=== PATIENT | female | born 1930 | race Caucasian/White ===

== ENCOUNTER 2016-07-22 02:46 | Inpatient (IN) ==
[2016-07-22] MEDS ORDERED: Aspirin 81 MG TAB.CHEW PO ONE (03:02)
[2016-07-22] MEDS ORDERED: Ondansetron 4 MG/2 ML VIAL IVP ONE (03:02)
[2016-07-22] MEDS ORDERED: *HR* Morphine 2 MG/ML SYRINGE IVP ONE (03:02)
--- NOTE | 2016-07-22 03:02 | Emergency Department Note ---
Disposition Clinical Impression: Left breast mass Chest pain Qualifiers: Chest pain type: precordial pain Qualified Code(s): R07.2 - Precordial pain Disposition: Admitted As Inpatient Condition: Good Referrals: NO,PCP [Non-Partnered Physician] - Forms: ED Satisfaction Letter Chest Pain HPI - General Chief Complaint: ED Chest Pain Stated Complaint: squeezing pain in chest Time Seen by Provider: 07/22/16 02:50 Source: patient, EMS Limitations: no limitations Vital Signs Reviewed: Yes Nursing Notes Reviewed: Yes - History of Present Illness HPI Narrative: 86-year-old female presents to the emergency department by EMS with a complaint of severe bilateral lower chest pain which she has been having intermittently for the past 3 weeks. She describes it as a squeezing and tightness around her chest like her chest is in a vice. She states it feels like a brick on her chest. The pain radiates down into the abdomen but also up into the chest into the left shoulder. She does complain of some shortness of breath associated with the pain. No diaphoresis. No nausea or vomiting. No cough or fever. She also complains of soreness in her left breast which has been going on for some time also. She has noticed a knot in the breast but has not told anyone about it. Pt complaint: chest pain Onset (ago): week(s) (3) Duration: intermittent Pain Location: substernal, left chest, right chest, epigastric Severity scale (1-10): 5 Quality: tightness, aching, heaviness, dull Pain Radiation: LUE, abdomen Improves with: nothing Worsens with: nothing Associated symptoms: Reports: dyspnea. Denies: nausea, vomiting, diaphoresis, syncope, palpitations, fever, cough, leg swelling Treatments prior to arrival chest pain: none - Related Data Home Medications Medication Instructions Recorded Confirmed Oxazepam [Serax] 15 mg PO QID PRN 02/19/15 10/09/15 Furosemide [Lasix] 20 mg PO BID PRN 10/09/15 10/09/15 Previous Rx's Medication Instructions Recorded Rivaroxaban [Xarelto] 15 mg PO 1700 #30 tablet 10/13/15 Aspirin 81 mg PO DAILY #90 tab.chew 10/14/15 LevETIRAcetam [Keppra] 250 mg PO Q12HR #90 tablet 10/14/15 Lisinopril [Zestril] 5 mg PO DAILY #30 tablet 10/14/15 Metoprolol XL (24 HR) Succ [Toprol 50 mg PO DAILY #60 tab.er.24h 10/14/15 Xl] Ranolazine [Ranexa] 500 mg PO BID #60 tab.er.12h 10/14/15 Allergies Allergy/AdvReac Type Severity Reaction Status Date / Time nitroglycerin AdvReac Headache Verified 07/22/16 03:01 All systems ED: reviewed and negative except as stated. Constitutional: Denies: fever Cardiovascular: Reports: chest pain. Denies: palpitations Respiratory: Reports: dyspnea. Denies: cough, wheezes Gastrointestinal: Reports: abdominal pain. Denies: nausea, vomiting Musculoskeletal: Denies: back pain Integumentary: Reports: breast mass Neurological: Denies: headache, weakness, numbness Chest Pain PMH - Past Medical History Medical history: Reports: aortic aneurysm, atrial fibrillation, CHF, COPD, coronary artery disease, hyperlipidemia, hypertension, myocardial infarction, TIA Surgical history: Reports: appendectomy, coronary bypass (CABG) Psychiatric history: Reports: anxiety - Social History Smoking Status: Former smoker Alcohol use: Reports: none Drug use: Reports: none Physical Exam - General Limitations: no limitations General appearance: alert, in no apparent distress - Head Head exam: atraumatic, normocephalic - Eye Eye exam: Present: normal appearance, PERRL. Absent: scleral icterus, conjunctival injection - ENT ENT exam: normal exam, normal oropharynx, mucous membranes moist - Neck Neck exam: Present: normal inspection, full ROM, trachea midline. Absent: tenderness, meningismus, lymphadenopathy - Chest Chest inspection: Present: normal inspection, symmetric chest wall rise, tenderness (There is tenderness over the left breast with a palpable 3-4 cm mass in the upper outer quadrant of the left breast.) - Respiratory Respiratory exam: Present: normal lung sounds bilaterally. Absent: respiratory distress, wheezes - Cardiovascular Cardiovascular exam: Present: regular rate, irregular rhythm, normal heart sounds - Abdominal Exam Abdominal exam: Present: soft, Non-Tender, normal bowel sounds - Extremities Exam Extremities exam: Present: normal inspection, full ROM. Absent: tenderness - Back Exam Back exam: Present: normal inspection. Absent: CVA tenderness (R), CVA tenderness (L) - Neurological Exam Neurological exam: Present: alert, oriented X3. Absent: motor sensory deficit - Psychiatric Psychiatric exam: Present: normal affect, normal mood - Skin Skin exam: Present: warm, dry, intact, normal color. Absent: cyanosis, diaphoresis Course - Consultations Consultation #1: Discussed with Dr. Summers and he accepted admission of the patient. Time: 15:00 Vital Signs Temperature 98.4 F 07/22/16 02:50 Pulse Rate 92 07/22/16 02:50 Respiratory Rate 18 07/22/16 02:50 Blood Pressure 194/125 07/22/16 02:50 O2 Sat by Pulse Oximetry 95 07/22/16 02:50 Temperature 98.4 F 07/22/16 02:50 Pulse Rate 92 07/22/16 04:45 Respiratory Rate 18 07/22/16 04:45 Blood Pressure 170/92 07/22/16 04:45 O2 Sat by Pulse Oximetry 93 L 07/22/16 04:45 Oxygen Delivery Oxygen Delivery Room Air Chest Pain - Medical Records Medical records reviewed: Yes I reviewed the patient's medical records. - Lab Data Lab results reviewed: Yes I reviewed the patient's lab results. Result diagrams: 07/22/16 04:19 07/22/16 04:19 Lab Results 07/22/16 07/22/16 07/22/16 Range/Units 04:19 04:19 04:19 WBC (4.3-11.1) K/mcL RBC (3.82-4.97) M/mcL Hgb (11.5-15.4) g/dL Hct (35.3-44.9) % MCV (83.0-100.0) fL MCH (28.0-33.3) pg MCHC (31.6-35.5) g/dL RDW (11.5-14.5) % Plt Count (140-400) K/mcL MPV (9.4-12.4) fL Immature Gran % (0-4) % Seg Neutrophils % % Lymphocytes % % Monocytes % % Eosinophils % % Basophils % % Neutrophils # (1.6-8.9) K/mcL Lymphocytes # (0.6-4.6) K/mcL Monocytes # (0.0-1.3) K/mcL Eosinophils # (0.0-0.6) K/mcL Basophils # (0.0-0.2) K/mcL PT 12.0 (9.4-12.1) Seconds INR 1.1 APTT 26.7 (26.0-36.0) Seconds Sodium (136-145) mEq/L Potassium (3.5-4.5) mEq/L Chloride (98-109) mEq/L Carbon Dioxide (19-29) mEq/L BUN (7-20) mg/dL Creatinine (0.57-1.11) mg/dL Est GFR ( Amer) (> 60) Est GFR (Non-Af Amer) (> 60) BUN/Creatinine Ratio (6-26) Glucose (70-99) mg/dL Calculated Osmolality (280-300) Calcium (8.6-10.8) mg/dL Total Bilirubin 1.1 (0.2-1.2) mg/dL Direct Bilirubin 0.5 (0.0-0.5) mg/dL Indirect Bilirubin 0.6 (0.0-1.2) mg/dL AST 28 (5-34) Units/L ALT 20 (0-55) Units/L Alkaline Phosphatase 114 (38-126) Units/L Troponin I (0-0.03) ng/mL B-Natriuretic Peptide 1330 H (0-100) pg/mL Serum Total Protein 6.8 (6.0-8.3) g/dL Albumin 3.7 (3.5-5.0) g/dL Globulin 3.1 (2.4-3.5) g/dL Albumin/Globulin Ratio 1.2 (1.1-2.2) Lipase (8-78) Units/L 07/22/16 07/22/16 07/22/16 Range/Units 04:19 04:19 04:19 WBC 4.4 (4.3-11.1) K/mcL RBC 4.19 (3.82-4.97) M/mcL Hgb 12.8 (11.5-15.4) g/dL Hct 38.5 (35.3-44.9) % MCV 91.9 (83.0-100.0) fL MCH 30.5 (28.0-33.3) pg MCHC 33.2 (31.6-35.5) g/dL RDW 14.9 H (11.5-14.5) % Plt Count 100 L (140-400) K/mcL MPV 10.6 (9.4-12.4) fL Immature Gran % 0.2 (0-4) % Seg Neutrophils % 77.1 % Lymphocytes % 12.8 % Monocytes % 8.0 % Eosinophils % 1.4 % Basophils % 0.5 % Neutrophils # 3.4 (1.6-8.9) K/mcL Lymphocytes # 0.6 (0.6-4.6) K/mcL Monocytes # 0.4 (0.0-1.3) K/mcL Eosinophils # 0.1 (0.0-0.6) K/mcL Basophils # 0.0 (0.0-0.2) K/mcL PT (9.4-12.1) Seconds INR APTT (26.0-36.0) Seconds Sodium 139 (136-145) mEq/L Potassium 4.0 (3.5-4.5) mEq/L Chloride 106 (98-109) mEq/L Carbon Dioxide 22 (19-29) mEq/L BUN 26 H (7-20) mg/dL Creatinine 1.59 H (0.57-1.11) mg/dL Est GFR ( Amer) 37 L (> 60) Est GFR (Non-Af Amer) 31 L (> 60) BUN/Creatinine Ratio 16 (6-26) Glucose 116 H (70-99) mg/dL Calculated Osmolality 294 (280-300) Calcium 9.0 (8.6-10.8) mg/dL Total Bilirubin (0.2-1.2) mg/dL Direct Bilirubin (0.0-0.5) mg/dL Indirect Bilirubin (0.0-1.2) mg/dL AST (5-34) Units/L ALT (0-55) Units/L Alkaline Phosphatase (38-126) Units/L Troponin I (0-0.03) ng/mL B-Natriuretic Peptide (0-100) pg/mL Serum Total Protein (6.0-8.3) g/dL Albumin (3.5-5.0) g/dL Globulin (2.4-3.5) g/dL Albumin/Globulin Ratio (1.1-2.2) Lipase 35 (8-78) Units/L 01/20/17 Range/Units 04:19 WBC (4.3-11.1) K/mcL RBC (3.82-4.97) M/mcL Hgb (11.5-15.4) g/dL Hct (35.3-44.9) % MCV (83.0-100.0) fL MCH (28.0-33.3) pg MCHC (31.6-35.5) g/dL RDW (11.5-14.5) % Plt Count (140-400) K/mcL MPV (9.4-12.4) fL Immature Gran % (0-4) % Seg Neutrophils % % Lymphocytes % % Monocytes % % Eosinophils % % Basophils % % Neutrophils # (1.6-8.9) K/mcL Lymphocytes # (0.6-4.6) K/mcL Monocytes # (0.0-1.3) K/mcL Eosinophils # (0.0-0.6) K/mcL Basophils # (0.0-0.2) K/mcL PT (9.4-12.1) Seconds INR APTT (26.0-36.0) Seconds Sodium (136-145) mEq/L Potassium (3.5-4.5) mEq/L Chloride (98-109) mEq/L Carbon Dioxide (19-29) mEq/L BUN (7-20) mg/dL Creatinine (0.57-1.11) mg/dL Est GFR ( Amer) (> 60) Est GFR (Non-Af Amer) (> 60) BUN/Creatinine Ratio (6-26) Glucose (70-99) mg/dL Calculated Osmolality (280-300) Calcium (8.6-10.8) mg/dL Total Bilirubin (0.2-1.2) mg/dL Direct Bilirubin (0.0-0.5) mg/dL Indirect Bilirubin (0.0-1.2) mg/dL AST (5-34) Units/L ALT (0-55) Units/L Alkaline Phosphatase (38-126) Units/L Troponin I 0.03 (0-0.03) ng/mL B-Natriuretic Peptide (0-100) pg/mL Serum Total Protein (6.0-8.3) g/dL Albumin (3.5-5.0) g/dL Globulin (2.4-3.5) g/dL Albumin/Globulin Ratio (1.1-2.2) Lipase (8-78) Units/L - Radiology Data Radiology results reviewed: Yes I reviewed the patient's radiology results. Chest X-Ray 07/22/16 03:05 IMPRESSION: The appearance of the chest is similar to prior. D/ / Molina Sharma MD / Molina Sharma MD Interpreting Provider: Molina Sharma MD - EKG Data EKG attestation: Yes I reviewed and interpreted this EKG. Rhythm: A.Fib Interpretation: unchanged when compared to prior tracing (date) ([id number])
[2016-07-22] MEDS ORDERED: *HR* Metoprolol 5 MG/5 ML VIAL IVP ONE (04:03)
[2016-07-22 04:31] LABS: Basophils % 0.5 %; Eosinophils # 0.1 K/mcL (0.0-0.6); Eosinophils % 1.4 %; Hematocrit 38.5 % (35.3-44.9); Hemoglobin 12.8 g/dL (11.5-15.4); Immature Granulocytes % 0.2 % (0-4); Lymphocytes # 0.6 K/mcL (0.6-4.6); Lymphocytes % 12.8 %; Mean Corpuscular HGB Conc 33.2 g/dL (31.6-35.5); Mean Corpuscular Hemoglobin 30.5 pg (28.0-33.3); Mean Corpuscular Volume 91.9 fL (83.0-100.0); Mean Platelet Volume 10.6 fL (9.4-12.4); Monocytes # 0.4 K/mcL (0.0-1.3); Neutrophils # 3.4 K/mcL (1.6-8.9); Platelet Count 100 K/mcL (140-400); Red Blood Count 4.19 M/mcL (3.82-4.97); Red Cell Distribution Width 14.9 % (11.5-14.5); Segmented Neutrophils % 77.1 %
[2016-07-22 04:38] LABS: INR 1.1
[2016-07-22 04:41] LABS: Activated Partial Thrombo Time 26.7 Seconds (26.0-36.0)
[2016-07-22 04:44] LABS: Albumin 3.7 g/dL (3.5-5.0); Albumin/Globulin Ratio 1.2 (1.1-2.2); Bilirubin,Direct 0.5 mg/dL (0.0-0.5); Bilirubin,Indirect 0.6 mg/dL (0.0-1.2); Bilirubin,Total 1.1 mg/dL (0.2-1.2); Globulin 3.1 g/dL (2.4-3.5); Total Protein 6.8 g/dL (6.0-8.3)
[2016-07-22] MEDS ORDERED: Mag Hydrox/Al Hydrox/Simeth 30 ML UDC PO PRN (08:40)
[2016-07-22] MEDS: Metoprolol XL (24 HR) Succ 50 MG TAB.ER.24H PO SCH (08:59)
[2016-07-22] MEDS ORDERED: Naloxone 0.4 MG/ML INJ IVP PRN (10:27)
[2016-07-22] MEDS ORDERED: Acetaminophen 325 MG TABLET PO PRN (10:30)
[2016-07-22] MEDS ORDERED: 0.9 % Sodium Chloride 1,000 ML IVC SCH (10:30)
[2016-07-22] MEDS: Isosorbide MONOnitrate (24 HR) 30 MG TAB.ER.24H PO SCH (12:47)
--- NOTE | 2016-07-22 14:17 | Internal Med History&Physical ---
Date of Encounter: 07/22/16 Time of Encounter: 08:00 Assessment and Plan (1) Chest pain Current visit: Yes Status: Acute Patient does have a risk for ACS given her history of coronary artery disease and CABG. Will trend troponins. Check 2-D echocardiogram. Discussed plan of care with patient. She does not want to undergo a stress test or cardiac catheterization. We will continue medical management with low-dose aspirin, statin. The causes for her chest pain could be costochondritis and GI related pain. Will start patient on omeprazole. She does have chest wall tenderness. Given her age not a candidate for NSAIDs. Will treat her pain with acetaminophen . Qualifiers: Chest pain type: precordial pain Qualified Code(s): R07.2 - Precordial pain (2) Essential hypertension Current visit: Yes Status: Acute Monitor blood pressure. Continue metoprolol. (3) Left breast mass Current visit: Yes Status: Acute Patient's pain could also be related to her left breast mass. Will get ultrasound of the breast and mammogram. (4) Atrial fibrillation Current visit: Yes Status: Chronic Rate controlled. On anticoagulation with Xarelto Qualifiers: Atrial fibrillation type: chronic Qualified Code(s): I48.2 - Chronic atrial fibrillation (5) CAD (coronary artery disease) Current visit: Yes Status: Acute Ischemic cardiomyopathy. Continue aspirin, statin and beta lisa. Qualifiers: Coronary Disease-Associated Artery/Lesion type: bypass graft Pala vs. transplanted heart: red cliff heart Associated angina: with unstable angina Qualified Code(s): I25.700 - Atherosclerosis of coronary artery bypass graft(s) , unspecified, with unstable angina pectoris (6) Ischemic cardiomyopathy Current visit: No Status: Chronic Will get 2-D echo. Currently not having any signs of acute heart failure. Internal Medicine - H&P: HPI Chief complaint: Chest pressure Admitted From: Emergency Dept Plans for Post Hospital Care: Home History of present illness: Ms. Saenz is a 86 year old female with history of TIA, atrial fibrillation, aortic aneurysm, congestive heart failure presented to the ER with complaints of chest pressure. Been going on for about 2-3 weeks now. Pressure is located in the central part of her chest and feels heavy. She also feels a pressure going up to her neck. She complains of pain in her left breast and has been feeling a knot there. Denies any fever or chills or night sweats. Denies any palpitations. No nausea or vomiting. She had presented with similar complaints in October of last year and at that time , she was evaluated by cardiology and recommended left heart catheterization. Patient had declined the procedure and was discharged on medical management with follow-up arranged with cardiology. She also had a echocardiogram done then which showed an ejection fraction of 30-35% with moderate left ventricular systolic dysfunction. And severe pulmonary hypertension. Vision currently denies any shortness of breath. She says she gets palpitations when she lies down flat and so she lies down on her left side. Past Med Surg Social Fam HX - Past Medical History Medical history: aortic aneurysm, atrial fibrillation, CHF, COPD, coronary artery disease, hyperlipidemia, hypertension, myocardial infarction, TIA Psychiatric history: anxiety - Past Surgical History Surgical History: appendectomy, coronary bypass (CABG) - Social History Smoking Status: Former smoker Smokeless Tobacco Status: No Alcohol use: none Drug use: none - Family History Father Living Status: Hx Family Cardiac Disorders: Yes Hx Family Respiratory Disorders: Yes (emphysema) Hx Family Cancer: Yes (MOTHER COLON CA) Mother History Unknown: Yes Living Status: Internal Medicine - H&P: Meds Oxazepam [Serax] 15 mg PO QID PRN 02/19/15 [History] Rivaroxaban [Xarelto] 15 mg PO 1700 #30 tablet 10/13/15 [Rx] Metoprolol XL (24 HR) Succ [Toprol Xl] 50 mg PO DAILY #60 tab.er.24h 10/14/15 [ Rx] Ibuprofen [Motrin] 200 mg PO Q4HR PRN 07/22/16 [History] Allergies nitroglycerin Adverse Reaction (Verified 07/22/16 03:01) Headache All Systems PM: A 10-system review of systems was performed and is negative for pertinent findings except as documented above in the HPI. - Constitutional Constitutional: no chills, no fever(s), no night sweats - EENT Eyes: no change in vision, no discharge, no pain, no photophobia Ears: no ear discharge, no ear pain, no tinnitus Nose, mouth and throat: no dysphagia, no nasal discharge, no neck pain, no sore throat - Breasts Breasts: swelling - Cardiovascular Cardiovascular ROS IM: chest pain, no diaphoresis, no dyspnea, no lightheadedness, no palpitations, no syncope - Respiratory Respiratory: cough, no dyspnea, no wheezing, no excessive phlegm production - Gastrointestinal Gastrointestinal: no abdominal pain, no diarrhea, no hematemesis, no hematochezia, no melena, no nausea, no vomiting - Genitourinary Genitourinary: no change in urinary stream, no dysuria, no flank pain, no hematuria - Musculoskeletal Musculoskeletal ROS IM: no numbness, no tingling - Integumentary Integumentary IM: no rash, no unusual bruising - Neurological Neurological ROS: no confusion, no convulsions, no focal weakness, no numbness, no tingling, no tremor(s) - Psychiatric Psychiatric: no confusion - Constitutional Vitals: Temp Pulse Resp BP Pulse Ox 97.2 F L 72 12 149/70 96 07/22/16 10:58 07/22/16 10:58 07/22/16 10:58 07/22/16 10:58 07/22/16 10:58 General appearance: Present: cooperative, mild distress, A&O X 3, pleasant, answers questions appropriately - Eye Eye exam: Present: PERRL, conjuntiva pink, sclera anicteric Pupils: Present: PERRL - Neck Neck exam general surgery: Present: supple, trachea midline. Absent: lymphadenopathy - Respiratory Respiratory exam: Present: chest wall tenderness, CTAB. Absent: accessory muscle use, rales, rhonchi, wheezes - Cardiovascular Cardiovascular exam: Present: RRR, +S1, +S2. Absent: diastolic murmur, gallop, rubs, systolic murmur Additional comments: Central chest wall tenderness present. - GI/Abdominal GI/Abdominal exam: Present: normal bowel sounds, soft, tenderness (Epigastric), no peritoneal signs. Absent: distended - Extremities Exam Extremities exam: Present: warm, radial pulses palpable and symetrical. Absent : calf tenderness, cyanotic, pedal edema - Neurological Exam Neurological exam: Present: CN II-XII intact, oriented X3, no focal deficits. Absent: facial droop, speech deficit - Other Additional findings: Left breast mass present in the left upper quadrant measuring about 5 cm in size with firm consistency. Tender to palpation. Internal Med - H&P Results - Labs CBC & Chem 7: 07/22/16 04:19 07/22/16 04:19 Labs: Cardiac Enzymes 07/22/16 Range/Units 11:03 Troponin I 0.04 H* (0-0.03) ng/mL - EKG Data -: EKG Interpreted by Myself - EKG Data EKG comments: 07/22/16 14:19 A. fib rate controlled - Attending Attestation This document has been at least partially created by [employer] recognition technology by Dr. Anaya. Errors in grammar, wording or other phrases may exist. If errors are found after the documentation is signed, they will be addressed individually in the addendum section of this document when appropriate. Medical Decision Making - MDM Narrative Medical decision making narrative: Patient is at high risk for complications during chest pain with risk for ACS - Medical Records Medical records reviewed: Yes I reviewed the patient's medical records. - Lab Data Lab results reviewed: Yes I reviewed the patient's lab results. Result diagrams: 07/22/16 04:19 07/22/16 04:19 Lab Results 07/22/16 Range/Units 11:03 Troponin I 0.04 H* (0-0.03) ng/mL - Radiology Data Radiology results reviewed: Yes I reviewed the patient's radiology results.
--- NOTE | 2016-07-22 16:15 | Electrocardiograph Report ---
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 : 1930 Requested By: Archie Cuevas Order Number: [id number] Reading MD: Nati Ladd Measurements Intervals Alvarado Rate: 92 P: NC: 0 QRS: -57 QRSD: 149 T: 33 QT: 384 QTc: 434 Interpretive Statements ATRIAL FIBRILLATION RIGHT BUNDLE BRANCH BLOCK LEFT ANTERIOR FASCICULAR BLOCK MINIMAL VOLTAGE CRITERIA FOR LVH, CONSIDER NORMAL VARIANT ANTERIOR MYOCARDIAL INFARCTION, PROBABLY OLD INFERIOR MYOCARDIAL INFARCTION, PROBABLY OLD Electronically Signed On 07-22-16 16:12:42 EST by Ntai Ladd
[2016-07-22] MEDS: *HR* Rivaroxaban 15 MG TABLET PO SCH (16:43)
[2016-07-23] MEDS ORDERED: *HR* HYDROcodone/Acet 5/325 mg TABLET PO PRN (01:24)
[2016-07-23 03:39] LABS: Basophils % 0.6 %
[2016-07-23 03:41] LABS: Eosinophils # 0.1 K/mcL (0.0-0.6); Eosinophils % 2.4 %; Hematocrit 32.3 % (35.3-44.9); Hemoglobin 10.5 g/dL (11.5-15.4); Immature Granulocytes % 0.3 % (0-4); Immature Platelets 3.8 % (1.1-6.1); Lymphocytes # 0.8 K/mcL (0.6-4.6); Lymphocytes % 23.9 %; Mean Corpuscular HGB Conc 32.5 g/dL (31.6-35.5); Mean Corpuscular Hemoglobin 30.1 pg (28.0-33.3); Mean Corpuscular Volume 92.6 fL (83.0-100.0); Mean Platelet Volume 10.7 fL (9.4-12.4); Monocytes # 0.4 K/mcL (0.0-1.3); Monocytes % 11.2 %; Red Blood Count 3.49 M/mcL (3.82-4.97); Red Cell Distribution Width 15.1 % (11.5-14.5); Segmented Neutrophils % 61.6 %
[2016-07-23 03:42] LABS: Platelet Count 99 K/mcL (140-400)
[2016-07-23 03:57] LABS: Calcium 8.3 mg/dL (8.6-10.8); Potassium 4.3 mEq/L (3.5-4.5)
--- NOTE | 2016-07-23 08:24 | ECHO - Doppler Report ---
Echocardiogram Name: Beverley Saenz Date of Study: 07/22/2016 Date: 1930 Ht: 62.0 in Medical Record#: [id number] Age: 86 Wt: 121.0 lb Gender: Female BSA: 1.54 Order #: [id number] Location: [facility] Room #: 3B41 Reading Physician: Kenton Blank DO, RED, TRINO ABURTO Top Closer: Sheridan Chu Ordering Physician: Raul Anaya MD Primary Physician: Kenny Lisa M.D. Indications: Chest pain Impressions: LVEF 30-35%. Normal LV chamber size. Severe global and segmental left ventricular systolic dysfunction. Indeterminate diastolic function. Atypical septal motion consistent with bundle branch block. Mildly dilated right ventricle with normal appearing function. Mild mitral regurgitation. Severe tricuspid regurgitation. Severe pulmonary hypertension. Estimated RVSP is 61 mmHg. Overall, findings largely unchanged from prior report dated 10/2015. Left Ventricular Wall Motion: Rest Echo Findings The apical inferior, mid inferior, basal inferior, apical anterior, mid anterior, basal anterior, mid inferior septal, basal inferior septal, apical lateral, mid anterior lateral, basal anterior lateral, mid anterior septal, mid inferior lateral, basal anterior septal and basal inferior lateral corea were hypokinetic. The apex and apical septal corea were akinetic. Findings: Study Quality * Technically adequate exam. ECG Findings * Atrial fibrillation with a bundle branch block. Left Ventricle * LVEF 30-35%. * Normal LV chamber size. * Severe global and segmental left ventricular systolic dysfunction. * Indeterminate diastolic function. * Atypical septal motion consistent with bundle branch block. Right Ventricle * Mildly dilated right ventricle with normal appearing function. Left Atrium * Moderately dilated left atrium. Right Atrium * Moderately dilated right atrium. Interatrial Septum * No evidence of PFO by color Doppler. Aortic Valve * Trileaflet aortic valve. * Mildly sclerotic aortic valve leaflets. * Trace aortic regurgitation. * No aortic stenosis. Mitral Valve * Mildly thickened mitral valve leaflets. * Mild mitral annular calcification * Mild mitral regurgitation. * No mitral stenosis. Tricuspid Valve * Normal tricuspid valve structure. * Severe tricuspid regurgitation. * Severe pulmonary hypertension. * Estimated RVSP is 61 mmHg. * Estimated RA pressure is 5 mmHg. Pulmonic Valve * Normal pulmonic valve structure and function. * Trace pulmonic regurgitation. Aorta * Normally sized aortic root. Pericardium * The pericardium appears normal. Pulmonary Artery * Normal visualized portions of the main pulmonary artery. IVC * The IVC is not well evaluated. History Hypertension Family History of CAD History of CAD/PTCA Coronary Artery Bypass Graft Congestive Heart Failure 10/09/2015 a Previous Echo was performed. Measurements: BP: 149/ 70 2D Normal Values RVIDd: 3.00 cm <2.7 cm IVSd: 1.00 cm 0.6 - 1.0 cm LVIDd: 5.40 cm 3.7 - 5.6 cm LVPWd: .90 cm 0.6 - 1.1 cm LVIDs: 4.20 cm 1.5 - 3.6 cm AO: 2.20 cm < 4.0 cm LA: 4.10 cm 2.0 - 4.0cm %FS: 22.20 cm >25 % LA volume: 90 Mitral Valve Peak E:.85 m/sec Peak A:.25 m/sec E/A Ratio:3.4 Peak E' Lat Tyler:8.09 cm/s Peak E' Med Tyler:5.07 cm/s E/E' Lat Ratio:10.5 E/E' Med Ratio:16.7 Tricuspid Valve TV Regurg Peak Grad: 56.00mmHg TV Regurg Peak Tyler: 3.74m/sec Updated by Kenton Blank DO, FACJacki, CRISELDA, TRINO on 07/23/2016 8:16:46 AM electronically signed on 07/23/2016 8:18:22 AM with status of Final Wall Motion Connors: 1=Normal, 2=Hypokinesis, 3=Akinesis, 4=Dyskinesis, 5=Aneurysmal, 6=Hyperkinetic, X=Not Visualized (Blank)=Missing
[2016-07-23] MEDS ORDERED: *HR* Morphine 2 MG/ML SYRINGE IVP ONE (09:35)
[2016-07-23] MEDS: Isosorbide MONOnitrate (24 HR) 30 MG TAB.ER.24H PO SCH (09:53)
[2016-07-23] MEDS: Metoprolol XL (24 HR) Succ 50 MG TAB.ER.24H PO SCH (09:53)
--- NOTE | 2016-07-23 11:02 | Palliative - Consult Note ---
Date of Encounter: 07/23/16 Time of Encounter: 10:20 - Assessment and Plan (1) Goals of care, counseling/discussion Current Visit: Yes Status: Acute Assessment and plan: Patient is alert and oriented and gives consent to discuss overall health status. It is noted that she is alone in the room during this consult. She reports having 2 children. Daughter Teri who is listed to be DPOA NOK and her son Abraham which is listed on as second contact on her DPOA forms. The patient currently lives alone and reports that her daughter Teri is recovering from a mastectomy (5 weeks ago) and that she has invited the patient to live with her. The patient reports having a weak heart and desires no aggressive interventions. I reviewed her current Advanced Directives on file and no changes are to be made. I discussed that if she desires no aggressive medical interventions for her chest pain that a change in Code Status might be warranted. I explained all DNR statuses and explained interventions for each. She was very clear stating that she desired to be a DNRCC-A, DNI. She reports that when it time for a person to pass that is should happen naturally. I confirmed her understanding will change her to a DNRCC - A, DNI. She denies every wanting to be on a mechanical machine. I explained to her that I would call her children and report her desires and let them know of the change in DNR status. She verbalized understanding. I will need to follow-up with Teri in regards to transitioning the patient to home. In addition, the patient is scheduled for breast biopsy on a left breast mass and now she reports no being sure if this is what she desires to do. I will call her children and attempt to set-up a meeting with all present. Teri - #[phone] Abraham #[phone] (2) Impaired comfort Current Visit: Yes Status: Acute Assessment and plan: Patient reports having constant chest fullness and constant ache to left chest. Medications reviewed. Patient tolerates Alvin and reports that these help at home. She has only had one dose early this AM which she reported has helped with her comfort. (3) Anxiety Current Visit: No Status: Chronic Assessment and plan: Patient with strong history of anxiety. Currently takes Serax at home at least twice a day. I will schedule it BID and offer PRN dose as well. (4) CAD (coronary artery disease) Current Visit: Yes Status: Acute Qualifiers: Coronary Disease-Associated Artery/Lesion type: bypass graft [place] vs. transplanted heart: [place] heart Associated angina: with unstable angina Qualified Code(s): I25.700 - Atherosclerosis of coronary artery bypass graft(s) , unspecified, with unstable angina pectoris (5) Chest pain Current Visit: Yes Status: Acute Qualifiers: Chest pain type: precordial pain Qualified Code(s): R07.2 - Precordial pain (6) Left breast mass Current Visit: Yes Status: Acute Assessment and plan: Patient is scheduled for left breast biopsy as outpatient next week. Desires to not undergo this procedure. Palliative-CN HPI - Data of Consult Patient: new to practice Consult date: 07/23/16 Requesting Physician: Raul Anaya MD Primary Care Provider: Kenny Lisa MD - Consult Narrative Palliative Care/Comfort Measures: Palliative care Reason for consult: Goals of Care History of present illness: Ms. Saenz is a 86 year old female admitted with chest pressure. Upon this consult she is lying in bed, alert and reports feeling a fullness in her chest. She is not SOB and is able to hold conversation without difficulty. The patient reports to me that she has a weak heart and at her age declines wanting to have any aggressive procedures or invasive diagnostic exams. She completed an Echocardiogram last evening that reveals an EF 30 -35% with severe global and segmental left ventricular dysfunction. She is also noted to have a left breast mass and is currently scheduled for a biopsy for this next week. She reports not being sure if this is what she wants to do. This palliative care consult if for goals of care planning. CC: Raul Anaya MD Past Med Surg Social Fam HX - Past Medical History Source: patient, old records reviewed Medical history: aortic aneurysm, atrial fibrillation, CHF, COPD, coronary artery disease, hyperlipidemia, hypertension, myocardial infarction, TIA Psychiatric history: anxiety - Past Surgical History Surgical History: appendectomy, coronary bypass (CABG) - Social History Smoking Status: Former smoker Smokeless Tobacco Status: No Alcohol use: none Drug use: none Occupational status: retired Current living situation: Home - Independent Activity Level: Independent ambulation Recent Out of Country Travel Within the Last 8 Weeks: No Exposure or Possible Exposure to Illness During Travel: No - Family History Father Adopted: No Race: Living Status: Hx Family Cardiac Disorders: Yes Hx Family Respiratory Disorders: Yes (emphysema) Hx Family Cancer: Yes (MOTHER COLON CA) Mother History Unknown: Yes Living Status: Medications and Allergies Oxazepam [Serax] 15 mg PO QID PRN 02/19/15 [History] Rivaroxaban [Xarelto] 15 mg PO 1700 #30 tablet 10/13/15 [Rx] Metoprolol XL (24 HR) Succ [Toprol Xl] 50 mg PO DAILY #60 tab.er.24h 10/14/15 [ Rx] Ibuprofen [Motrin] 200 mg PO Q4HR PRN 07/22/16 [History] Allergies nitroglycerin Adverse Reaction (Verified 07/22/16 03:01) Headache All systems: reviewed and no additional remarkable complaints except as stated ( chest fullness and nausea) - Constitutional Constitutional ROS PAL: decreased appetite, fatigue - EENT Eyes: requires corrective lenses - Cardiovascular Cardiovascular ROS: chest pain, chest pain with activity, palpitations - Gastrointestinal Gastrointestinal: nausea - Genitourinary Palliative ROS female: breast mass (left) - Musculoskeletal Musculoskeletal ROS IM: muscle weakness - Neurological Neurological ROS: dizziness - Psychiatric Psychiatric general PM: as per HPI Palliative Care-Exam - Constitutional Vitals: Temp Pulse Resp BP Pulse Ox 97.6 F 74 16 144/94 93 L 07/23/16 07:32 07/23/16 07:32 07/23/16 07:32 07/23/16 07:32 07/23/16 07:32 General appearance: Present: cooperative, no acute distress - Head Head Exam: Present: normal inspection - Eye Eye exam: Present: PERRL Pupils: Present: PERRL - ENT ENT exam: Present: mucous membranes moist - Expanded ENT Exam Throat exam: Present: normal inspection - Neck Neck exam: Present: full ROM - Respiratory Respiratory exam: Present: CTAB - Cardiovascular Cardiovascular exam: Present: irregular rhythm, +S1, +S2 - Expanded Cardiovascular Exam Peripheral pulses: 1+: Femoral (L) PM, Femoral (R) PM, Posterior Tibialis (L), Posterior Tibialis (R), 2+: Carotid (L) PM, Carotid (R) PM, Radial (L), Radial ( R), Dorsalis Pedis (L) PM, Dorsalis Pedis (R) PM - GI/Abdominal Exam GI/Abdominal exam: Present: normal bowel sounds - Rectal Rectal exam: Present: deferred - Additional comments: denies dysuria - Extremities Exam Extremities exam: Present: full ROM - Expanded Upper Extremities Exam Upper Arm exam: Present: full ROM Elbow exam: Present: full ROM - Neurological Exam Neurological exam: Present: alert, oriented X3 - Psychiatric Psychiatric exam: Present: normal mood - Skin Skin exam: Present: pallor, warm Internal Medicine - CN: Reslt - Labs CBC & Chem 7: 07/23/16 02:40 07/23/16 02:40 Labs: Short CBC 07/23/16 Range/Units 02:40 WBC 3.3 L (4.3-11.1) K/mcL Hgb 10.5 L D (11.5-15.4) g/dL Hct 32.3 L (35.3-44.9) % Plt Count 99 L (140-400) K/mcL Neutrophils # 2.0 (1.6-8.9) K/mcL BMP 07/23/16 02:40 Sodium 138 Potassium 4.3 Chloride 108 Carbon Dioxide 20 BUN 30 H Creatinine 1.84 H Glucose 117 H Calcium 8.3 L Cardiac Enzymes 07/22/16 07/22/16 Range/Units 11:03 17:33 Troponin I 0.04 H* 0.03 (0-0.03) ng/mL - ABG Interpretation ABG results: PT/INR, D-dimer PT 12.0 Seconds (9.4-12.1) 07/22/16 04:19 - Impressions Impressions Breast Ultrasound 07/22/16 07:24 IMPRESSION: 1. No mammographic evidence of malignancy in the right breast. 2. Indeterminate 2 cm, high-density mass, left breast 1 o'clock position, with angular margins, highly suspicious for malignancy. Ultrasound-guided core biopsy is recommended for further evaluation. The findings and recommendations were discussed with the patient at the time of the exam. BIRADS: BIRADS - CATEGORY 5 Findings are highly suggestive of malignancy. Biopsy should be considered at this time. OVERALL ASSESSMENT - HIGHLY SUGGESTIVE OF MALIGNANCY. A letter of notification will be sent to the patient regarding the results. My findings and recommendations were discussed with the patient at the time of service. A desk representative from the radiology department will be contacting your office and assisting the patient in getting appropriate follow-up. D/ / 07/22/2016 14:21:23 Estephanie Oliver MD / ronald Interpreting Provider: Estephanie Oliver MD Mammogram Diagnostic 07/22/16 13:10 IMPRESSION: 1. No mammographic evidence of malignancy in the right breast. 2. Indeterminate 2 cm, high-density mass, left breast 1 o'clock position, with angular margins, highly suspicious for malignancy. Ultrasound-guided core biopsy is recommended for further evaluation. The findings and recommendations were discussed with the patient at the time of the exam. BIRADS: BIRADS - CATEGORY 5 Findings are highly suggestive of malignancy. Biopsy should be considered at this time. OVERALL ASSESSMENT - HIGHLY SUGGESTIVE OF MALIGNANCY. A letter of notification will be sent to the patient regarding the results. My findings and recommendations were discussed with the patient at the time of service. A desk representative from the radiology department will be contacting your office and assisting the patient in getting appropriate follow-up. D/ / 07/22/2016 14:21:23 Estephanie Oliver MD / ronald Interpreting Provider: Estephanie Oliver MD Consult Discharge Plan - Plan Additional Instructions: Biopsy scheduled for July 27 at 8:45. Please be at the hospital at 8:30. Please come to Outpatient Registration. Please do not take your Xarelto on Monday. Referrals: Kenny Lisa MD [Primary Care Provider] - 08/01/16 10:15 am Palliative Quality Palliative Quality: Screen for Code Status: Yes, Screen for Goals of Care: Yes, Screen for Pain: Yes, If Pain Regimen Started, Initiate Bowel Regimen: Yes, Screen for Nausea/Vomitting: Yes Code Status: 07/22/16 10:27 Resuscitation Status: Active [RES] Routine Comment: Resuscitation Status: Full Code
--- NOTE | 2016-07-23 12:21 | Internal Med Progress Note ---
Date of Encounter: 07/23/16 Time of Encounter: 08:35 - Assessment and plan (1) Chest pain Current Visit: Yes Status: Acute Assessment and plan: 2-D echocardiogram shows unchanged ejection fraction of 30-35% with global systolic dysfunction. Patient currently on Imdur and metoprolol. Discussed with cardiology. Recommend continued medical management as patient does not want cardiac stress test or cardiac catheterization. Qualifiers: Chest pain type: precordial pain Qualified Code(s): R07.2 - Precordial pain (2) Essential hypertension Current Visit: Yes Status: Acute Assessment and plan: Blood pressure is elevated likely from pain. Will monitor blood pressure and adjust medications as needed. (3) Left breast mass Current Visit: Yes Status: Acute Assessment and plan: Mammogram and ultrasound show suspicion for malignancy. Patient was set up for outpatient biopsy for Monday. However currently patient does not wish further interventions and does not seem to confused about getting a biopsy done. This will be discussed further by palliative care with the patient's family and the patient. (4) Atrial fibrillation Current Visit: Yes Status: Chronic Assessment and plan: Rate controlled Qualifiers: Atrial fibrillation type: chronic Qualified Code(s): I48.2 - Chronic atrial fibrillation (5) CAD (coronary artery disease) Current Visit: Yes Status: Chronic Assessment and plan: On Imdur and metoprolol for pain. Will also add aspirin and statin. Qualifiers: Coronary Disease-Associated Artery/Lesion type: bypass graft [place] vs. transplanted heart: [place] heart Associated angina: with unstable angina Qualified Code(s): I25.700 - Atherosclerosis of coronary artery bypass graft(s) , unspecified, with unstable angina pectoris (6) Ischemic cardiomyopathy Current Visit: No Status: Chronic Assessment and plan: Consulted palliative care to discuss goals of care. Patient's CODE STATUS has been changed to DNR CC-A DNI. - Subjective Interval history: Patient complains of continued headache and chest pressure. This has not improved despite receiving [place]. Denies any palpitations. No nausea or vomiting reported. She also continues to have left breast pain - Constitutional Vitals: Temp Pulse Resp BP Pulse Ox 98.3 F 76 17 167/84 95 07/23/16 11:17 07/23/16 11:17 07/23/16 11:17 07/23/16 11:17 07/23/16 11:17 General appearance: Present: cooperative, mild distress, A&O X 3, pleasant, answers questions appropriately - Respiratory Respiratory exam: Present: CTAB. Absent: accessory muscle use, rales, rhonchi, wheezes - Cardiovascular Cardiovascular exam: Present: RRR, +S1, +S2. Absent: diastolic murmur, gallop, rubs, systolic murmur Additional comments: Chest wall tenderness present - GI/Abdominal GI/Abdominal exam: Present: normal bowel sounds, soft, tenderness (epigastric), no peritoneal signs. Absent: distended - Extremities Exam Extremities exam: Present: warm, radial pulses palpable and symetrical. Absent : calf tenderness, cyanotic, pedal edema - Neurological Exam Neurological exam: Present: oriented X3, no focal deficits, strengths equal and symetr throughout. Absent: pronater drift, facial droop, speech deficit Internal Medicine: Result - Labs CBC & Chem 7: 07/23/16 02:40 07/23/16 02:40 Labs: Short CBC 07/23/16 Range/Units 02:40 WBC 3.3 L (4.3-11.1) K/mcL Hgb 10.5 L D (11.5-15.4) g/dL Hct 32.3 L (35.3-44.9) % Plt Count 99 L (140-400) K/mcL Neutrophils # 2.0 (1.6-8.9) K/mcL BMP 07/23/16 02:40 Sodium 138 Potassium 4.3 Chloride 108 Carbon Dioxide 20 BUN 30 H Creatinine 1.84 H Glucose 117 H Calcium 8.3 L Cardiac Enzymes 07/22/16 Range/Units 17:33 Troponin I 0.03 (0-0.03) ng/mL - ABG Interpretation ABG results: PT/INR, D-dimer PT 12.0 Seconds (9.4-12.1) 07/22/16 04:19 - Impressions Impressions Breast Ultrasound 07/22/16 07:24 IMPRESSION: 1. No mammographic evidence of malignancy in the right breast. 2. Indeterminate 2 cm, high-density mass, left breast 1 o'clock position, with angular margins, highly suspicious for malignancy. Ultrasound-guided core biopsy is recommended for further evaluation. The findings and recommendations were discussed with the patient at the time of the exam. BIRADS: BIRADS - CATEGORY 5 Findings are highly suggestive of malignancy. Biopsy should be considered at this time. OVERALL ASSESSMENT - HIGHLY SUGGESTIVE OF MALIGNANCY. A letter of notification will be sent to the patient regarding the results. My findings and recommendations were discussed with the patient at the time of service. A access representative from the radiology department will be contacting your office and assisting the patient in getting appropriate follow-up. D/ / 07/22/2016 14:21:23 Estephanie Oliver MD / ronald Interpreting Provider: Estephanie Oliver MD Mammogram Diagnostic 07/22/16 13:10 IMPRESSION: 1. No mammographic evidence of malignancy in the right breast. 2. Indeterminate 2 cm, high-density mass, left breast 1 o'clock position, with angular margins, highly suspicious for malignancy. Ultrasound-guided core biopsy is recommended for further evaluation. The findings and recommendations were discussed with the patient at the time of the exam. BIRADS: BIRADS - CATEGORY 5 Findings are highly suggestive of malignancy. Biopsy should be considered at this time. OVERALL ASSESSMENT - HIGHLY SUGGESTIVE OF MALIGNANCY. A letter of notification will be sent to the patient regarding the results. My findings and recommendations were discussed with the patient at the time of service. A access representative from the radiology department will be contacting your office and assisting the patient in getting appropriate follow-up. D/ / 07/22/2016 14:21:23 Estephanie Oliver MD / ronald Interpreting Provider: Estephanie Oliver MD Consult Discharge Plan - Plan Additional Instructions: Biopsy scheduled for July 27 at 8:45. Please be at the hospital at 8:30. Please come to Outpatient Registration. Please do not take your Xarelto on Monday. Referrals: Kenny Lisa MD [Primary Care Provider] - 08/01/16 10:15 am - Attending Attestation This document has been at least partially created by [employer] recognition technology by Dr. Anaya. Errors in grammar, wording or other phrases may exist. If errors are found after the documentation is signed, they will be addressed individually in the addendum section of this document when appropriate. Medical Decision Making - MDM Narrative Medical decision making narrative: Moderate risk for complications - Lab Data Lab results reviewed: Yes I reviewed the patient's lab results. Result diagrams: 07/23/16 02:40 07/23/16 02:40 Lab Results 07/22/16 07/22/16 07/23/16 Range/Units 11:03 17:33 02:40 WBC 3.3 L (4.3-11.1) K/mcL RBC 3.49 L (3.82-4.97) M/mcL Hgb 10.5 L D (11.5-15.4) g/dL Hct 32.3 L (35.3-44.9) % MCV 92.6 (83.0-100.0) fL MCH 30.1 (28.0-33.3) pg MCHC 32.5 (31.6-35.5) g/dL RDW 15.1 H (11.5-14.5) % Plt Count 99 L (140-400) K/mcL MPV 10.7 (9.4-12.4) fL Immature Gran % 0.3 (0-4) % Seg Neutrophils % 61.6 % Lymphocytes % 23.9 % Monocytes % 11.2 % Eosinophils % 2.4 % Basophils % 0.6 % Neutrophils # 2.0 (1.6-8.9) K/mcL Lymphocytes # 0.8 (0.6-4.6) K/mcL Monocytes # 0.4 (0.0-1.3) K/mcL Eosinophils # 0.1 (0.0-0.6) K/mcL Basophils # 0.0 (0.0-0.2) K/mcL Immature Plt Fraction 3.8 (1.1-6.1) % Sodium (136-145) mEq/L Potassium (3.5-4.5) mEq/L Chloride (98-109) mEq/L Carbon Dioxide (19-29) mEq/L BUN (7-20) mg/dL Creatinine (0.57-1.11) mg/dL Est GFR ( Amer) (> 60) Est GFR (Non-Af Amer) (> 60) BUN/Creatinine Ratio (6-26) Glucose (70-99) mg/dL Calculated Osmolality (280-300) Calcium (8.6-10.8) mg/dL Troponin I 0.04 H* 0.03 (0-0.03) ng/mL 07/23/16 Range/Units 02:40 WBC (4.3-11.1) K/mcL RBC (3.82-4.97) M/mcL Hgb (11.5-15.4) g/dL Hct (35.3-44.9) % MCV (83.0-100.0) fL MCH (28.0-33.3) pg MCHC (31.6-35.5) g/dL RDW (11.5-14.5) % Plt Count (140-400) K/mcL MPV (9.4-12.4) fL Immature Gran % (0-4) % Seg Neutrophils % % Lymphocytes % % Monocytes % % Eosinophils % % Basophils % % Neutrophils # (1.6-8.9) K/mcL Lymphocytes # (0.6-4.6) K/mcL Monocytes # (0.0-1.3) K/mcL Eosinophils # (0.0-0.6) K/mcL Basophils # (0.0-0.2) K/mcL Immature Plt Fraction (1.1-6.1) % Sodium 138 (136-145) mEq/L Potassium 4.3 (3.5-4.5) mEq/L Chloride 108 (98-109) mEq/L Carbon Dioxide 20 (19-29) mEq/L BUN 30 H (7-20) mg/dL Creatinine 1.84 H (0.57-1.11) mg/dL Est GFR ( Amer) 32 L (> 60) Est GFR (Non-Af Amer) 26 L (> 60) BUN/Creatinine Ratio 16 (6-26) Glucose 117 H (70-99) mg/dL Calculated Osmolality 293 (280-300) Calcium 8.3 L (8.6-10.8) mg/dL Troponin I (0-0.03) ng/mL
[2016-07-23] MEDS ORDERED: Acetaminophen/Butalbital/CaffeineTABLET PO PRN (12:25)
[2016-07-23] MEDS: Aspirin Enteric Coated 81 MG Tablet PO SCH (12:43)
[2016-07-23] MEDS: Ondansetron 4 MG/2 ML VIAL IVP PRN (15:11)
[2016-07-23] MEDS ORDERED: Promethazine 12.5 MG in 0.9 % Sodium Chloride 50 ML IVPB PRN (17:24)
[2016-07-23] MEDS ORDERED: *HR* Morphine 2 MG/ML SYRINGE IVP PRN (17:27)
[2016-07-23] MEDS: *HR* Rivaroxaban 15 MG TABLET PO SCH (17:29)
[2016-07-23] MEDS ORDERED: *HR* Promethazine 25 MG/ML VIAL IVP PRN (17:33)
[2016-07-23] MEDS ORDERED: Metoclopramide 10 MG/2 ML VIAL IVP PRN (19:08)
[2016-07-23] MEDS ORDERED: Naloxone 0.4 MG/ML INJ IVP ONE ×2 (21:05→21:13)
[2016-07-23] MEDS ORDERED: Naloxone 0.4 MG/ML INJ ONE (21:12)
[2016-07-23] MEDS ORDERED: Naloxone 0.4 MG/ML INJ IVC ONE (21:22)
--- NOTE | 2016-07-23 21:28 | Event Note ---
Date of Encounter: 07/23/16 Time of Encounter: 21:22 I responded to rapid response for nursing concerns of seizure followed by unresponsive state. Pt received Bag Mask ventilation and no further resuscitation as per her wishes -- DNRCCA/DNI. She did receive Narcan times 2 doses with improvement in neurologic function and purposeful responses to pain and vocal stimuli. I spoke with son (Abraham), and he confirmed her code status -- does not want pursue CPR, intubation, or aggressive measures. He is returning to hospital. Pt is narcotic naive, so I am stopping all her opiates. Pt on chronic Serax and I would continue this later when she is more alert and wake so as to avoid BZD withdrawal. Pt being placed on Narcan drip until stable per Dr. Priest's request.
[2016-07-23] MEDS ORDERED: *HR* LORazepam 2 MG/ML VIAL ONE (21:32)
[2016-07-23] MEDS ORDERED: *HR* LORazepam 2 MG/ML VIAL IVP ONE (21:35)
[2016-07-23] MEDS ORDERED: PHENYTOIN IVPB ONE (21:51)
[2016-07-23] MEDS ORDERED: *HR* LORazepam 2 MG/ML VIAL IVP PRN (21:55)
--- NOTE | 2016-07-23 22:03 | Event Note ---
Date of Encounter: 07/23/16 Time of Encounter: 21:50 Pt just had another tonic-clonic seizure I witnessed with nursing staff. We administered Ativan 1 mg IV. Family arrived to bedside shortly thereafter. We discussed further work-up (i.e., Head CT/MRI, etc) and family did not want to pursue further work-up. We will start Dilantin load and maintenance dosing with PRN Ativan for seizures. I asked pharmacy to cancel Narcan drip for now. If pt returns to baseline, family would consider further neuro imaging and/or work-up if pt agrees. However, for now, they want to honor patient request and not pursue any further work-up/heroic measures. Family is afraid she has cerebral aneurysm and they prefer not be aggressive and state "Mom is ready to ". They are not interested in brain imaging and/or transfer to a tertiary care medical center. If she does not awaken and/or develops status epileticus, they will change code status to DNRCC and institute comfort measures only.
[2016-07-24] MEDS: Ondansetron 4 MG/2 ML VIAL IVP PRN (04:03)
--- NOTE | 2016-07-24 08:50 | Palliative Progress Note ---
Date of Encounter: 07/24/16 Time of Encounter: 08:15 - Assessment and plan (1) Goals of care, counseling/discussion Current Visit: Yes Status: Acute Assessment and plan: Patient suffered seizure last night and as per wishes no heroic measures were taken and comfort seizure meds were provided. Nursing reports that around 4am this morning that the patient awoke to be alert and oriented and no recollection of last nights events. This morning the patient consents to have a CT of head and will await these results. Case discussed with Dr. Anaya and patient will continue on Dilantin. Patient is DNRCC -A, DNI as per wishes. (2) Impaired comfort Current Visit: Yes Status: Acute Assessment and plan: Patient currently denies pain or discomfort. All pain meds were held d/t seizure. Will monitor comfort and consider restarting [place] PRN. (3) Anxiety Current Visit: No Status: Chronic Assessment and plan: Patient has Serax BID. Will monitor. (4) CAD (coronary artery disease) Current Visit: Yes Status: Chronic Qualifiers: Coronary Disease-Associated Artery/Lesion type: bypass graft [place] vs. transplanted heart: [place] heart Associated angina: with unstable angina Qualified Code(s): I25.700 - Atherosclerosis of coronary artery bypass graft(s) , unspecified, with unstable angina pectoris (5) Chest pain Current Visit: Yes Status: Acute Qualifiers: Chest pain type: precordial pain Qualified Code(s): R07.2 - Precordial pain (6) Left breast mass Current Visit: Yes Status: Acute (7) Seizure Current Visit: No Status: Acute - Time Spent With Patient Total time spent is greater than 50% in coordination of care (as documented) at patient's floor/unit and/or counseling patient: 25 - 35 minutes - Subjective Interval history: Events of last noted that patient suffered a seizure and was unresponsive and transferred to 2A palliative bed. This morning the patient is sitting up in bed , alert, and reports having no memory of last nights events. She reports that her chest fullness is gone and that she only has a small headache. She denies feeling nauseated and reports that she consumed her breakfast without difficulty. - Constitutional Vitals: Abnormal lab results WBC 3.3 K/mcL (4.3-11.1) L 07/23/16 02:40 RBC 3.49 M/mcL (3.82-4.97) L 07/23/16 02:40 Hgb 10.5 g/dL (11.5-15.4) L D 07/23/16 02:40 Hct 32.3 % (35.3-44.9) L 07/23/16 02:40 RDW 15.1 % (11.5-14.5) H 07/23/16 02:40 Plt Count 99 K/mcL (140-400) L 07/23/16 02:40 BUN 30 mg/dL (7-20) H 07/23/16 02:40 Creatinine 1.84 mg/dL (0.57-1.11) H 07/23/16 02:40 Est GFR ( Amer) 32 (> 60) L 07/23/16 02:40 Est GFR (Non-Af Amer) 26 (> 60) L 07/23/16 02:40 Glucose 117 mg/dL (70-99) H 07/23/16 02:40 POC Glucose 145 (58-89) H 07/23/16 20:57 Calcium 8.3 mg/dL (8.6-10.8) L 07/23/16 02:40 B-Natriuretic Peptide 1330 pg/mL (0-100) H 07/22/16 04:19 - Head Head exam: Present: atraumatic, normal inspection - Eye Eye exam: Present: PERRL Pupils: Present: PERRL - ENT ENT exam: Present: mucous membranes moist - Neck Neck exam: Present: full ROM - Respiratory Respiratory exam: Present: CTAB - Expanded Cardiovascular Exam Peripheral pulses: 1+: Femoral (L) PM, Femoral (R) PM, Posterior Tibialis (L), Posterior Tibialis (R), 2+: Carotid (L) PM, Carotid (R) PM, Radial (L), Radial ( R), Dorsalis Pedis (L) PM, Dorsalis Pedis (R) PM - GI/Abdominal GI/Abdominal exam: Present: normal bowel sounds - Rectal Rectal exam: Present: deferred - Extremities Exam Extremities exam: Present: full ROM - Back Exam Back exam: Present: full ROM - Neurological Exam Neurological exam: Present: alert, CN II-XII intact, oriented X3 - Psychiatric Psychiatric exam: Present: normal affect - Skin Skin exam: Present: pallor, warm Palliative Quality Palliative Quality: Screen for Code Status: Yes, Screen for Goals of Care: Yes, Screen for Pain: Yes, If Pain Regimen Started, Initiate Bowel Regimen: Yes, Screen for Nausea/Vomitting: Yes Code Status: 07/22/16 10:27 Resuscitation Status: Active [RES] Routine Comment: Resuscitation Status: Full Code 07/23/16 11:48 DNR [Resuscitation Status: Active] [RES] Routine Comment: Resuscitation Status: [id number] - Labs CBC & Chem 7: 07/23/16 02:40 07/23/16 02:40 Labs: Laboratory Results - last 24 hr 07/23/16 20:57 POC Glucose 145 H - ABG Interpretation ABG results: PT/INR, D-dimer PT 12.0 Seconds (9.4-12.1) 07/22/16 04:19 Consult Discharge Plan - Plan Additional Instructions: Biopsy scheduled for July 27 at 8:45. Please be at the hospital at 8:30. Please come to Outpatient Registration. Please do not take your Xarelto on Monday. Referrals: Kenny Lisa MD [Primary Care Provider] - 08/01/16 10:15 am
[2016-07-24] MEDS: Isosorbide MONOnitrate (24 HR) 30 MG TAB.ER.24H PO SCH (09:53)
[2016-07-24] MEDS: Aspirin Enteric Coated 81 MG Tablet PO SCH (09:53)
[2016-07-24] MEDS: Metoprolol XL (24 HR) Succ 50 MG TAB.ER.24H PO SCH (09:53)
[2016-07-24] MEDS ORDERED: PHENYTOIN IVPB SCH (10:00)
--- NOTE | 2016-07-24 11:09 | Internal Med Progress Note ---
Date of Encounter: 07/24/16 Time of Encounter: 09:00 - Assessment and plan (1) Seizure Current Visit: Yes Status: Acute Assessment and plan: Acute seizures. Patient has been started on Dilantin. CT scan of the head does not show any acute bleed or stroke. On seizure precautions. (2) Chest pain Current Visit: Yes Status: Acute Assessment and plan: Improving. Likely due to combination of possible angina and chest wall tenderness with costochondritis. Discussed supportive care. On Imdur and beta lisa. Qualifiers: Chest pain type: precordial pain Qualified Code(s): R07.2 - Precordial pain (3) Essential hypertension Current Visit: Yes Status: Acute Assessment and plan: Well-controlled (4) Left breast mass Current Visit: Yes Status: Acute Assessment and plan: Outpatient biopsy has been arranged. Palliative care consulted. Patient does not appear to want further interventions. Currently is DNR CC arrest DNI (5) Atrial fibrillation Current Visit: Yes Status: Chronic Assessment and plan: Rate controlled Qualifiers: Atrial fibrillation type: chronic Qualified Code(s): I48.2 - Chronic atrial fibrillation (6) CAD (coronary artery disease) Current Visit: Yes Status: Chronic Assessment and plan: On aspirin, statin and beta lisa Qualifiers: Coronary Disease-Associated Artery/Lesion type: bypass graft [place] vs. transplanted heart: [place] heart Associated angina: with unstable angina Qualified Code(s): I25.700 - Atherosclerosis of coronary artery bypass graft(s) , unspecified, with unstable angina pectoris (7) Ischemic cardiomyopathy Current Visit: No Status: Chronic Assessment and plan: Poor oral prognosis given her advanced age (8) Migraine Current Visit: Yes Status: Acute Assessment and plan: Improving. Continue Fioricet and antiemetics Qualifiers: Migraine type: without aura Status migrainosus presence: without status migrainosus Intractability: intractable Qualified Code(s): G43.019 - Migraine without aura, intractable, without status migrainosus - Subjective Interval history: Patient had episodes of seizures last night and was started on Dilantin. She had been nonresponsive through most of the night but has not woken up this morning and is answering questions well. She was having a headache this morning but it has subsided after she received Fioricet. She denies any significant chest pain at this time. - Constitutional Vitals: Temp Pulse Resp BP Pulse Ox 98.0 F 61 18 133/66 100 07/24/16 07:34 07/24/16 07:34 07/24/16 07:34 07/24/16 07:34 07/24/16 10:02 General appearance: Present: cooperative, mild distress, A&O X 3, pleasant, answers questions appropriately - Respiratory Respiratory exam: Present: CTAB. Absent: accessory muscle use, rales, rhonchi, wheezes - Cardiovascular Cardiovascular exam: Present: RRR, +S1, +S2. Absent: diastolic murmur, gallop, rubs, systolic murmur - GI/Abdominal GI/Abdominal exam: Present: normal bowel sounds, soft, no peritoneal signs. Absent: distended, tenderness - Extremities Exam Extremities exam: Present: warm, radial pulses palpable and symetrical. Absent : calf tenderness, cyanotic, pedal edema - Neurological Exam Neurological exam: Present: CN II-XII intact, oriented X3, no focal deficits. Absent: facial droop, speech deficit Internal Medicine: Result - Labs CBC & Chem 7: 07/23/16 02:40 07/23/16 02:40 - ABG Interpretation ABG results: PT/INR, D-dimer PT 12.0 Seconds (9.4-12.1) 07/22/16 04:19 - Impressions Impressions Head CT 07/24/16 07:58 IMPRESSION: Stable appearance of the brain with no acute intracranial abnormality. D/ / Bk Garcia MD / Bk Garcia MD Interpreting Provider: Bk Garcia MD Consult Discharge Plan - Plan Additional Instructions: Biopsy scheduled for July 27 at 8:45. Please be at the hospital at 8:30. Please come to Outpatient Registration. Please do not take your Xarelto on Monday. Referrals: Kenny Lisa MD [Primary Care Provider] - 08/01/16 10:15 am - Attending Attestation This document has been at least partially created by [employer] recognition technology by Dr. Anaya. Errors in grammar, wording or other phrases may exist. If errors are found after the documentation is signed, they will be addressed individually in the addendum section of this document when appropriate. Medical Decision Making - MDM Narrative Medical decision making narrative: High risk for complications - Lab Data Result diagrams: 07/23/16 02:40 07/23/16 02:40 Lab Results 07/22/16 07/22/16 07/23/16 Range/Units 11:03 17:33 02:40 WBC 3.3 L (4.3-11.1) K/mcL RBC 3.49 L (3.82-4.97) M/mcL Hgb 10.5 L D (11.5-15.4) g/dL Hct 32.3 L (35.3-44.9) % MCV 92.6 (83.0-100.0) fL MCH 30.1 (28.0-33.3) pg MCHC 32.5 (31.6-35.5) g/dL RDW 15.1 H (11.5-14.5) % Plt Count 99 L (140-400) K/mcL MPV 10.7 (9.4-12.4) fL Immature Gran % 0.3 (0-4) % Seg Neutrophils % 61.6 % Lymphocytes % 23.9 % Monocytes % 11.2 % Eosinophils % 2.4 % Basophils % 0.6 % Neutrophils # 2.0 (1.6-8.9) K/mcL Lymphocytes # 0.8 (0.6-4.6) K/mcL Monocytes # 0.4 (0.0-1.3) K/mcL Eosinophils # 0.1 (0.0-0.6) K/mcL Basophils # 0.0 (0.0-0.2) K/mcL Immature Plt Fraction 3.8 (1.1-6.1) % Sodium (136-145) mEq/L Potassium (3.5-4.5) mEq/L Chloride (98-109) mEq/L Carbon Dioxide (19-29) mEq/L BUN (7-20) mg/dL Creatinine (0.57-1.11) mg/dL Est GFR ( Amer) (> 60) Est GFR (Non-Af Amer) (> 60) BUN/Creatinine Ratio (6-26) Glucose (70-99) mg/dL POC Glucose (58-89) Calculated Osmolality (280-300) Calcium (8.6-10.8) mg/dL Troponin I 0.04 H* 0.03 (0-0.03) ng/mL 07/23/16 07/23/16 Range/Units 02:40 20:57 WBC (4.3-11.1) K/mcL RBC (3.82-4.97) M/mcL Hgb (11.5-15.4) g/dL Hct (35.3-44.9) % MCV (83.0-100.0) fL MCH (28.0-33.3) pg MCHC (31.6-35.5) g/dL RDW (11.5-14.5) % Plt Count (140-400) K/mcL MPV (9.4-12.4) fL Immature Gran % (0-4) % Seg Neutrophils % % Lymphocytes % % Monocytes % % Eosinophils % % Basophils % % Neutrophils # (1.6-8.9) K/mcL Lymphocytes # (0.6-4.6) K/mcL Monocytes # (0.0-1.3) K/mcL Eosinophils # (0.0-0.6) K/mcL Basophils # (0.0-0.2) K/mcL Immature Plt Fraction (1.1-6.1) % Sodium 138 (136-145) mEq/L Potassium 4.3 (3.5-4.5) mEq/L Chloride 108 (98-109) mEq/L Carbon Dioxide 20 (19-29) mEq/L BUN 30 H (7-20) mg/dL Creatinine 1.84 H (0.57-1.11) mg/dL Est GFR ( Amer) 32 L (> 60) Est GFR (Non-Af Amer) 26 L (> 60) BUN/Creatinine Ratio 16 (6-26) Glucose 117 H (70-99) mg/dL POC Glucose 145 H (58-89) Calculated Osmolality 293 (280-300) Calcium 8.3 L (8.6-10.8) mg/dL Troponin I (0-0.03) ng/mL
[2016-07-24] MEDS: *HR* Rivaroxaban 15 MG TABLET PO SCH (17:07)
[2016-07-24] MEDS: Loratadine 10 MG TABLET PO SCH (21:42)
--- NOTE | 2016-07-24 23:00 | Event Note ---
Date of Encounter: 07/24/16 Time of Encounter: 22:56 Patient reports continuing intractable chest wall pain/discomfort. We will attempt a trial of scheduled treatments with the low-dose Cymbalta every morning , low-dose gabapentin 3 times a day with low-dose tramadol 3 times a day. Monitoring of effect with adjustments of treatments as her symptoms dictate will be made. Complaints of intractable itching may stem from initiation of Imdur as part of her treatment regimen. She reports nitroglycerin as an allergy. Will interrupt this treatment and monitor effect. Benadryl provided on an as request basis for her pruritus plus scheduled loratadine. Orders written. Vital Signs Temp Pulse Resp BP Pulse Ox 07/24/16 19:43 98.6 F 70 16 117/65 91 L 07/24/16 11:20 98.1 F 64 17 128/68 100 07/24/16 10:02 100 07/24/16 07:34 98.0 F 61 18 133/66 100 07/24/16 03:55 98.0 F 70 16 130/69 100 07/23/16 23:50 98.1 F 74 17 139/85 98 Intake and Output 07/24/16 07/24/16 07/24/16 07:59 15:59 23:59 Intake Total 0 / 0 Balance 0 / 0 Intake: Oral 0 / 0 Abnormal lab results WBC 3.3 K/mcL (4.3-11.1) L 07/23/16 02:40 RBC 3.49 M/mcL (3.82-4.97) L 07/23/16 02:40 Hgb 10.5 g/dL (11.5-15.4) L D 07/23/16 02:40 Hct 32.3 % (35.3-44.9) L 07/23/16 02:40 RDW 15.1 % (11.5-14.5) H 07/23/16 02:40 Plt Count 99 K/mcL (140-400) L 07/23/16 02:40 BUN 30 mg/dL (7-20) H 07/23/16 02:40 Creatinine 1.84 mg/dL (0.57-1.11) H 07/23/16 02:40 Est GFR ( Amer) 32 (> 60) L 07/23/16 02:40 Est GFR (Non-Af Amer) 26 (> 60) L 07/23/16 02:40 Glucose 117 mg/dL (70-99) H 07/23/16 02:40 POC Glucose 145 (58-89) H 07/23/16 20:57 Calcium 8.3 mg/dL (8.6-10.8) L 07/23/16 02:40 B-Natriuretic Peptide 1330 pg/mL (0-100) H 07/22/16 04:19 Laboratory Results WBC 3.3 K/mcL (4.3-11.1) L 07/23/16 02:40 RBC 3.49 M/mcL (3.82-4.97) L 07/23/16 02:40 Hgb 10.5 g/dL (11.5-15.4) L D 07/23/16 02:40 Hct 32.3 % (35.3-44.9) L 07/23/16 02:40 MCV 92.6 fL (83.0-100.0) 07/23/16 02:40 MCH 30.1 pg (28.0-33.3) 07/23/16 02:40 MCHC 32.5 g/dL (31.6-35.5) 07/23/16 02:40 RDW 15.1 % (11.5-14.5) H 07/23/16 02:40 Plt Count 99 K/mcL (140-400) L 07/23/16 02:40 MPV 10.7 fL (9.4-12.4) 07/23/16 02:40 Immature Gran % 0.3 % (0-4) 07/23/16 02:40 Seg Neutrophils % 61.6 % 07/23/16 02:40 Lymphocytes % 23.9 % 07/23/16 02:40 Monocytes % 11.2 % 07/23/16 02:40 Eosinophils % 2.4 % 07/23/16 02:40 Basophils % 0.6 % 07/23/16 02:40 Neutrophils # 2.0 K/mcL (1.6-8.9) 07/23/16 02:40 Lymphocytes # 0.8 K/mcL (0.6-4.6) 07/23/16 02:40 Monocytes # 0.4 K/mcL (0.0-1.3) 07/23/16 02:40 Eosinophils # 0.1 K/mcL (0.0-0.6) 07/23/16 02:40 Basophils # 0.0 K/mcL (0.0-0.2) 07/23/16 02:40 Immature Plt Fraction 3.8 % (1.1-6.1) 07/23/16 02:40 PT 12.0 Seconds (9.4-12.1) 07/22/16 04:19 INR 1.1 07/22/16 04:19 APTT 26.7 Seconds (26.0-36.0) 07/22/16 04:19 Sodium 138 mEq/L (136-145) 07/23/16 02:40 Potassium 4.3 mEq/L (3.5-4.5) 07/23/16 02:40 Chloride 108 mEq/L (98-109) 07/23/16 02:40 Carbon Dioxide 20 mEq/L (19-29) 07/23/16 02:40 BUN 30 mg/dL (7-20) H 07/23/16 02:40 Creatinine 1.84 mg/dL (0.57-1.11) H 07/23/16 02:40 Est GFR ( Amer) 32 (> 60) L 07/23/16 02:40 Est GFR (Non-Af Amer) 26 (> 60) L 07/23/16 02:40 BUN/Creatinine Ratio 16 (6-26) 07/23/16 02:40 Glucose 117 mg/dL (70-99) H 07/23/16 02:40 POC Glucose 145 (58-89) H 07/23/16 20:57 Calculated Osmolality 293 (280-300) 07/23/16 02:40 Calcium 8.3 mg/dL (8.6-10.8) L 07/23/16 02:40 Total Bilirubin 1.1 mg/dL (0.2-1.2) 07/22/16 04:19 Direct Bilirubin 0.5 mg/dL (0.0-0.5) 07/22/16 04:19 Indirect Bilirubin 0.6 mg/dL (0.0-1.2) 07/22/16 04:19 AST 28 Units/L (5-34) 07/22/16 04:19 ALT 20 Units/L (0-55) 07/22/16 04:19 Alkaline Phosphatase 114 Units/L (38-126) 07/22/16 04:19 Troponin I 0.03 ng/mL (0-0.03) 07/22/16 17:33 B-Natriuretic Peptide 1330 pg/mL (0-100) H 07/22/16 04:19 Serum Total Protein 6.8 g/dL (6.0-8.3) 07/22/16 04:19 Albumin 3.7 g/dL (3.5-5.0) 07/22/16 04:19 Globulin 3.1 g/dL (2.4-3.5) 07/22/16 04:19 Albumin/Globulin Ratio 1.2 (1.1-2.2) 07/22/16 04:19 Lipase 35 Units/L (8-78) 07/22/16 04:19 Impressions Chest X-Ray 07/22/16 03:05 IMPRESSION: The appearance of the chest is similar to prior. D/ / Molina Sharma MD / Molina Sharma MD Interpreting Provider: Molina Sharma MD Breast Ultrasound 07/22/16 07:24 IMPRESSION: 1. No mammographic evidence of malignancy in the right breast. 2. Indeterminate 2 cm, high-density mass, left breast 1 o'clock position, with angular margins, highly suspicious for malignancy. Ultrasound-guided core biopsy is recommended for further evaluation. The findings and recommendations were discussed with the patient at the time of the exam. BIRADS: BIRADS - CATEGORY 5 Findings are highly suggestive of malignancy. Biopsy should be considered at this time. OVERALL ASSESSMENT - HIGHLY SUGGESTIVE OF MALIGNANCY. A letter of notification will be sent to the patient regarding the results. My findings and recommendations were discussed with the patient at the time of service. A enrollment representative from the radiology department will be contacting your office and assisting the patient in getting appropriate follow-up. D/ / 07/22/2016 14:21:23 Estephanie Oliver MD / ronald Interpreting Provider: Estephanie Oliver MD Mammogram Diagnostic 07/22/16 13:10 IMPRESSION: 1. No mammographic evidence of malignancy in the right breast. 2. Indeterminate 2 cm, high-density mass, left breast 1 o'clock position, with angular margins, highly suspicious for malignancy. Ultrasound-guided core biopsy is recommended for further evaluation. The findings and recommendations were discussed with the patient at the time of the exam. BIRADS: BIRADS - CATEGORY 5 Findings are highly suggestive of malignancy. Biopsy should be considered at this time. OVERALL ASSESSMENT - HIGHLY SUGGESTIVE OF MALIGNANCY. A letter of notification will be sent to the patient regarding the results. My findings and recommendations were discussed with the patient at the time of service. A enrollment representative from the radiology department will be contacting your office and assisting the patient in getting appropriate follow-up. D/ / 07/22/2016 14:21:23 Estephanie Oliver MD / earnold Interpreting Provider: Estephanie Oliver MD Head CT 07/24/16 07:58 IMPRESSION: Stable appearance of the brain with no acute intracranial abnormality. D/ / Bk Garcia MD / Bk Garcia MD Interpreting Provider: Bk Garcia MD
[2016-07-24] MEDS: traMADol 50 MG TABLET PO SCH (23:41)
[2016-07-24] MEDS: Gabapentin 100 MG CAPSULE PO SCH (23:41)
[2016-07-25 04:59] LABS: Basophils % 0.7 %; Eosinophils # 0.1 K/mcL (0.0-0.6); Eosinophils % 3.4 %; Hematocrit 33.9 % (35.3-44.9); Hemoglobin 10.9 g/dL (11.5-15.4); Immature Granulocytes % 0.2 % (0-4); Lymphocytes % 24.4 %; Mean Corpuscular HGB Conc 32.2 g/dL (31.6-35.5); Mean Corpuscular Hemoglobin 30.5 pg (28.0-33.3); Mean Platelet Volume 10.3 fL (9.4-12.4); Monocytes # 0.5 K/mcL (0.0-1.3); Monocytes % 11.3 %; Red Blood Count 3.57 M/mcL (3.82-4.97); Red Cell Distribution Width 14.9 % (11.5-14.5)
[2016-07-25 05:00] LABS: Neutrophils # 2.5 K/mcL (1.6-8.9); Platelet Count 92 K/mcL (140-400)
[2016-07-25 05:13] LABS: Calcium 8.5 mg/dL (8.6-10.8); Potassium 4.3 mEq/L (3.5-4.5)
[2016-07-25] MEDS: Gabapentin 100 MG CAPSULE PO SCH (09:03)
[2016-07-25] MEDS: Aspirin Enteric Coated 81 MG Tablet PO SCH (09:03)
[2016-07-25] MEDS: Metoprolol XL (24 HR) Succ 50 MG TAB.ER.24H PO SCH (09:04)
[2016-07-25] MEDS: traMADol 50 MG TABLET PO SCH ×3 (09:04→21:49)
[2016-07-25] MEDS: Loratadine 10 MG TABLET PO SCH ×2 (09:04→21:50)
[2016-07-25] MEDS ORDERED: predniSONE 20 MG TABLET PO SCH (10:15)
--- NOTE | 2016-07-25 15:13 | Palliative Progress Note ---
Date of Encounter: 07/25/16 Time of Encounter: 15:00 - Assessment and plan (1) Chest pain Current Visit: Yes Status: Acute Assessment and plan: Has been started on scheduled Ultram. States she is comfortable today. Monitor. Qualifiers: Chest pain type: precordial pain Qualified Code(s): R07.2 - Precordial pain (2) Anxiety Current Visit: No Status: Chronic Assessment and plan: Resumed Oxazepam bid and son states she relies heavily upon this at home. Home dose is tid, but he states she usually takes twice instead. MOnitor. (3) Goals of care, counseling/discussion Current Visit: Yes Status: Acute Assessment and plan: Son at bedside states needs to discuss d/c plan with his sister, Teri. He would desire pt to go to [place] short term, but explained that she has not participated in therapy and may not have another skilled need for Medicare to cover this. Teri will at some point likely be starting chemotherapy, so Son not sure if going home with her would be feasible. They are interested in privately hiring some help as well. He is to call me with meeting time with himself and Teri to further discuss. Will involve SW in discussion. - Time Spent With Patient Total time spent is greater than 50% in coordination of care (as documented) at patient's floor/unit and/or counseling patient: 25 - 35 minutes - Subjective Interval history: Patient sleeping quietly. Awakened briefly for assessment then drifts back to sleep. No complaints of pain or shortness of breath at this time. Son at bedside. - Constitutional Vitals: Abnormal lab results WBC 4.1 K/mcL (4.3-11.1) L 07/25/16 04:49 RBC 3.57 M/mcL (3.82-4.97) L 07/25/16 04:49 Hgb 10.9 g/dL (11.5-15.4) L 07/25/16 04:49 Hct 33.9 % (35.3-44.9) L 07/25/16 04:49 RDW 14.9 % (11.5-14.5) H 07/25/16 04:49 Plt Count 92 K/mcL (140-400) L 07/25/16 04:49 BUN 41 mg/dL (7-20) H D 07/25/16 04:49 Creatinine 1.69 mg/dL (0.57-1.11) H 07/25/16 04:49 Est GFR ( Amer) 35 (> 60) L 07/25/16 04:49 Est GFR (Non-Af Amer) 29 (> 60) L 07/25/16 04:49 Glucose 104 mg/dL (70-99) H 07/25/16 04:49 POC Glucose 145 (58-89) H 07/23/16 20:57 Calcium 8.5 mg/dL (8.6-10.8) L 07/25/16 04:49 B-Natriuretic Peptide 1330 pg/mL (0-100) H 07/22/16 04:19 General appearance: Present: no acute distress - Respiratory Respiratory exam: Present: decreased breath sounds, CTAB - Cardiovascular Cardiovascular exam: Present: +S1, +S2 - GI/Abdominal GI/Abdominal exam: Present: normal bowel sounds, soft - Extremities Exam Extremities exam: Present: normal capillary refill, normal inspection - Neurological Exam Neurological exam: Present: alert, oriented X3, strengths equal and symetr throughout - Skin Skin exam: Present: dry, pallor, warm Palliative Quality Palliative Quality: Screen for Code Status: Yes, Screen for Goals of Care: Yes, Screen for Pain: Yes, If Pain Regimen Started, Initiate Bowel Regimen: Yes, Screen for Nausea/Vomitting: Yes - Labs CBC & Chem 7: 07/25/16 04:49 07/25/16 04:49 Labs: Laboratory Results - last 24 hr 07/25/16 07/25/16 04:49 04:49 WBC 4.1 L RBC 3.57 L Hgb 10.9 L Hct 33.9 L MCV 95.0 MCH 30.5 MCHC 32.2 RDW 14.9 H Plt Count 92 L MPV 10.3 Immature Gran % 0.2 Seg Neutrophils % 60.0 Lymphocytes % 24.4 Monocytes % 11.3 Eosinophils % 3.4 Basophils % 0.7 Neutrophils # 2.5 Lymphocytes # 1.0 Monocytes # 0.5 Eosinophils # 0.1 Basophils # 0.0 Sodium 139 Potassium 4.3 Chloride 107 Carbon Dioxide 23 BUN 41 H D Creatinine 1.69 H Est GFR ( Amer) 35 L Est GFR (Non-Af Amer) 29 L BUN/Creatinine Ratio 24 Glucose 104 H Calculated Osmolality 298 Calcium 8.5 L - ABG Interpretation ABG results: PT/INR, D-dimer PT 12.0 Seconds (9.4-12.1) 07/22/16 04:19 Consult Discharge Plan - Plan Additional Instructions: Biopsy scheduled for July 27 at 8:45. Please be at the hospital at 8:30. Please come to Outpatient Registration. Please do not take your Xarelto on Monday. Referrals: Kenny Lisa MD [Primary Care Provider] - 08/01/16 10:15 am
--- NOTE | 2016-07-25 15:50 | Internal Med Progress Note ---
Date of Encounter: 07/25/16 Time of Encounter: 15:39 - Assessment and plan (1) Seizure Current Visit: Yes Status: Acute Assessment and plan: No further episode of seizures. On Dilantin. Given the risk of interaction with rivaroxaban, will change to Keppra 500 mg twice daily. (2) Chest pain Current Visit: Yes Status: Acute Assessment and plan: Chest pain due to costochondritis. Treat symptomatically with acetaminophen. Also started on tramadol for better pain control. Once pain is controlled this can be changed to as needed. Patient apparently had better response to previous episode of costochondritis with steroids. Will give the patient a single dose of prednisone. Qualifiers: Chest pain type: intercostal pain Qualified Code(s): R07.82 - Intercostal pain (3) Essential hypertension Current Visit: Yes Status: Acute Assessment and plan: Controlled (4) Left breast mass Current Visit: Yes Status: Acute Assessment and plan: Concerning for malignancy. Patient does not want any further workup including biopsy. Discussed with palliative care. Palliative care will discuss with family about hospice for the patient given this possibility. (5) Atrial fibrillation Current Visit: Yes Status: Chronic Assessment and plan: Date controlled. On Xarelto for anticoagulation. On metoprolol for rate control. Qualifiers: Atrial fibrillation type: chronic Qualified Code(s): I48.2 - Chronic atrial fibrillation (6) CAD (coronary artery disease) Current Visit: Yes Status: Chronic Assessment and plan: Continue aspirin, statin Qualifiers: Coronary Disease-Associated Artery/Lesion type: bypass graft [place] vs. transplanted heart: [place] heart Associated angina: with unstable angina Qualified Code(s): I25.700 - Atherosclerosis of coronary artery bypass graft(s) , unspecified, with unstable angina pectoris (7) Ischemic cardiomyopathy Current Visit: No Status: Chronic Assessment and plan: EF 30-35%. Conservative medical management.. Patient also has severe pulmonary hypertension and severe tricuspid regurgitation. (8) Migraine Current Visit: Yes Status: Resolved Assessment and plan: Migraine episode has resolved. Qualifiers: Migraine type: without aura Status migrainosus presence: without status migrainosus Intractability: intractable Qualified Code(s): G43.019 - Migraine without aura, intractable, without status migrainosus - Subjective Interval history: The patient was having itching since yesterday and has now been taken off Imdur. She does have allergy to nitroglycerin but that was causing her headache. She did not have headache with Imdur. Presently she is able to tolerate diet better. Her nausea is improving. Her headache has subsided. She continues to have some chest discomfort. - Constitutional Vitals: Temp Pulse Resp BP Pulse Ox 97.6 F 80 22 125/78 94 L 07/25/16 11:10 07/25/16 11:10 07/25/16 11:10 07/25/16 11:10 07/25/16 11:10 General appearance: Present: cooperative, mild distress, A&O X 3, pleasant, answers questions appropriately - Respiratory Respiratory exam: Present: CTAB. Absent: accessory muscle use, rales, rhonchi, wheezes - Cardiovascular Cardiovascular exam: Present: RRR, +S1, +S2. Absent: diastolic murmur, gallop, rubs, systolic murmur Additional comments: Chest wall tenderness present - GI/Abdominal GI/Abdominal exam: Present: normal bowel sounds, soft, no peritoneal signs. Absent: distended, tenderness - Extremities Exam Extremities exam: Present: warm, radial pulses palpable and symetrical. Absent : calf tenderness, cyanotic, pedal edema - Neurological Exam Neurological exam: Present: alert, no focal deficits. Absent: facial droop, speech deficit - Skin Skin exam: Present: dry, intact Internal Medicine: Result - Labs CBC & Chem 7: 07/25/16 04:49 07/25/16 04:49 Labs: Short CBC 07/25/16 Range/Units 04:49 WBC 4.1 L (4.3-11.1) K/mcL Hgb 10.9 L (11.5-15.4) g/dL Hct 33.9 L (35.3-44.9) % Plt Count 92 L (140-400) K/mcL Neutrophils # 2.5 (1.6-8.9) K/mcL BMP 07/25/16 04:49 Sodium 139 Potassium 4.3 Chloride 107 Carbon Dioxide 23 BUN 41 H D Creatinine 1.69 H Glucose 104 H Calcium 8.5 L - ABG Interpretation ABG results: PT/INR, D-dimer PT 12.0 Seconds (9.4-12.1) 07/22/16 04:19 Consult Discharge Plan - Plan Additional Instructions: Biopsy scheduled for July 27 at 8:45. Please be at the hospital at 8:30. Please come to Outpatient Registration. Please do not take your Xarelto on Monday. Referrals: Kenny Lisa MD [Primary Care Provider] - 08/01/16 10:15 am - Attending Attestation This document has been at least partially created by [email or web address] recognition technology by Dr. Anaya. Errors in grammar, wording or other phrases may exist. If errors are found after the documentation is signed, they will be addressed individually in the addendum section of this document when appropriate.
[2016-07-25] MEDS: *HR* Rivaroxaban 15 MG TABLET PO SCH (16:58)
[2016-07-25] MEDS: levETIRAcetam 250 MG TABLET PO SCH (16:58)
[2016-07-26] MEDS: levETIRAcetam 250 MG TABLET PO SCH ×2 (06:13→16:46)
[2016-07-26] MEDS: Aspirin Enteric Coated 81 MG Tablet PO SCH (08:51)
[2016-07-26] MEDS: Loratadine 10 MG TABLET PO SCH ×2 (08:51→20:42)
[2016-07-26] MEDS: Metoprolol XL (24 HR) Succ 50 MG TAB.ER.24H PO SCH (08:52)
--- NOTE | 2016-07-26 10:43 | Palliative Progress Note ---
Date of Encounter: 07/26/16 Time of Encounter: 10:40 - Assessment and plan (1) Chest pain Current Visit: Yes Status: Acute Assessment and plan: After discussion with pharmacist, will d/c Tramadol r/t lower seizure threshold. Kidney function marginal for NSAIDS - will trial Oxycodone for pain control on PRN basis. Qualifiers: Chest pain type: intercostal pain Qualified Code(s): R07.82 - Intercostal pain (2) Anxiety Current Visit: No Status: Chronic Assessment and plan: Continues on home meds to assist with control of this. Continue and monitor (3) Goals of care, counseling/discussion Current Visit: Yes Status: Acute Assessment and plan: Discussed discharge plan with pt. Called daughter Teri also to discuss. Patient ademantly refuses therapy or any thought of rehab. She is interested in pursuing hospice care at home. Daughter as well as I have concerns of her being home alone, and at this time, pt is insisting to go home. Teri states that if pt gets to the point it is not safe to be home, she can relocate to her house. Teri has to work today at 1600, but is coming in at 1400 to meet with hospice team. If they are still agreeable for hospice care after meeting with team, will plan for discharge tomorrow. Will D/W Dr. Miranda (4) Left breast mass Current Visit: Yes Status: Acute (5) Atrial fibrillation Current Visit: Yes Status: Chronic Qualifiers: Atrial fibrillation type: chronic Qualified Code(s): I48.2 - Chronic atrial fibrillation (6) Seizure Current Visit: Yes Status: Acute (7) Ischemic cardiomyopathy Current Visit: No Status: Chronic - Time Spent With Patient Total time spent is greater than 50% in coordination of care (as documented) at patient's floor/unit and/or counseling patient: 25 - 35 minutes - Subjective Interval history: Patient awake, alert and talkative. C/o come pain occasionally around left rib cage extending into shoulder and upper back. States feels short of breath occasionally. C/o generalized weakness. She appears in no apparent distress. No further seizure activity noted. No family present. - Constitutional Vitals: Abnormal lab results WBC 4.1 K/mcL (4.3-11.1) L 07/25/16 04:49 RBC 3.57 M/mcL (3.82-4.97) L 07/25/16 04:49 Hgb 10.9 g/dL (11.5-15.4) L 07/25/16 04:49 Hct 33.9 % (35.3-44.9) L 07/25/16 04:49 RDW 14.9 % (11.5-14.5) H 07/25/16 04:49 Plt Count 92 K/mcL (140-400) L 07/25/16 04:49 BUN 41 mg/dL (7-20) H D 07/25/16 04:49 Creatinine 1.69 mg/dL (0.57-1.11) H 07/25/16 04:49 Est GFR ( Amer) 35 (> 60) L 07/25/16 04:49 Est GFR (Non-Af Amer) 29 (> 60) L 07/25/16 04:49 Glucose 104 mg/dL (70-99) H 07/25/16 04:49 POC Glucose 145 (58-89) H 07/23/16 20:57 Calcium 8.5 mg/dL (8.6-10.8) L 07/25/16 04:49 B-Natriuretic Peptide 1330 pg/mL (0-100) H 07/22/16 04:19 General appearance: Present: no acute distress - Respiratory Respiratory exam: Present: decreased breath sounds, CTAB - Cardiovascular Cardiovascular exam: Present: irregular rhythm - GI/Abdominal GI/Abdominal exam: Present: normal bowel sounds, soft - Extremities Exam Extremities exam: Present: normal capillary refill, normal inspection - Neurological Exam Neurological exam: Present: alert, oriented X3, strengths equal and symetr throughout - Skin Skin exam: Present: dry, pallor, warm Palliative Quality Palliative Quality: Screen for Code Status: Yes, Screen for Goals of Care: Yes, Screen for Pain: Yes, If Pain Regimen Started, Initiate Bowel Regimen: Yes, Screen for Nausea/Vomitting: Yes - Labs CBC & Chem 7: 07/25/16 04:49 07/25/16 04:49 - ABG Interpretation ABG results: PT/INR, D-dimer PT 12.0 Seconds (9.4-12.1) 07/22/16 04:19 Consult Discharge Plan - Plan Additional Instructions: Biopsy scheduled for July 27 at 8:45. Please be at the hospital at 8:30. Please come to Outpatient Registration. Please do not take your Xarelto on Monday. Referrals: Kenny Lisa MD [Primary Care Provider] - 08/01/16 10:15 am
--- NOTE | 2016-07-26 14:18 | Internal Med Progress Note ---
Date of Encounter: 07/26/16 Time of Encounter: 10:45 - Assessment and plan (1) Chest pain Current Visit: Yes Status: Acute Assessment and plan: Chest pain due to costochondritis. Treat symptomatically with acetaminophen/oxycodone d/c tramadol Qualifiers: Chest pain type: intercostal pain Qualified Code(s): R07.82 - Intercostal pain (2) Essential hypertension Current Visit: Yes Status: Acute Assessment and plan: Controlled (3) Left breast mass Current Visit: Yes Status: Acute Assessment and plan: Concerning for malignancy. Patient does not want any further workup including biopsy She is being planed for discharge to home hospice No further work up (4) Seizure Current Visit: Yes Status: Acute Assessment and plan: No further episode of seizures. Continue with Keppra 500mg q12hr. (5) Atrial fibrillation Current Visit: Yes Status: Chronic Assessment and plan: Rate controlled On Xarelto for anticoagulation and metoprolol for rate control. Continue same Qualifiers: Atrial fibrillation type: chronic Qualified Code(s): I48.2 - Chronic atrial fibrillation (6) CAD (coronary artery disease) Current Visit: Yes Status: Chronic Assessment and plan: Continue aspirin, statin Qualifiers: Coronary Disease-Associated Artery/Lesion type: bypass graft [place] vs. transplanted heart: [place] heart Associated angina: with unstable angina Qualified Code(s): I25.700 - Atherosclerosis of coronary artery bypass graft(s) , unspecified, with unstable angina pectoris (7) Migraine Current Visit: Yes Status: Resolved Assessment and plan: Migraine episode has resolved. Qualifiers: Migraine type: without aura Status migrainosus presence: without status migrainosus Intractability: intractable Qualified Code(s): G43.019 - Migraine without aura, intractable, without status migrainosus (8) CHF (congestive heart failure) Current Visit: Yes Status: Chronic Assessment and plan: Chronic, stable, continue meds No signs of fluid overload/congestion Qualifiers: Congestive heart failure type: systolic Congestive heart failure chronicity : chronic Qualified Code(s): I50.22 - Chronic systolic (congestive) heart failure (9) Ischemic cardiomyopathy Current Visit: Yes Status: Chronic Assessment and plan: EF 30-35%. Conservative medical management.. Patient also has severe pulmonary hypertension and severe tricuspid regurgitation. - Subjective Interval history: 86 Y/O F with CAD s/p CABG with ischemic cardiomypathy, Systolic CHF not in fluid overload, HTN, CKD, Afib, Costochondiritis, new L breast mass concerning for malignancy She has also had new onset seizures since hospitalization, no recurrence She is seen at bedside Complains of chest pain, relieved by medication, not new or worse from prior She is presently awaiting home hospice, this is delayed a bit today due to no availability of family members to help set up home hospice palliative care is on board She is otherwise stable She is [id number] - Constitutional Vitals: Temp Pulse Resp BP Pulse Ox 98.3 F 67 18 127/71 95 07/26/16 11:09 07/26/16 11:09 07/26/16 11:09 07/26/16 11:09 07/26/16 11:09 General appearance: Present: cooperative, A&O X 3, pleasant, no acute distress, answers questions appropriately - Head Head exam: Present: atraumatic, normocephalic - Eye Eye exam: Present: PERRL, conjuntiva pink, sclera anicteric Pupils: Present: PERRL - Neck Neck exam general surgery: Present: supple, trachea midline. Absent: lymphadenopathy - Respiratory Respiratory exam: Present: CTAB. Absent: accessory muscle use, rales, rhonchi, wheezes Additional comments: Chest wall tenderness - Cardiovascular Cardiovascular exam: Present: RRR, +S1, +S2. Absent: diastolic murmur, gallop, rubs, systolic murmur - GI/Abdominal GI/Abdominal exam: Present: normal bowel sounds, soft, no peritoneal signs. Absent: distended, tenderness - Extremities Exam Extremities exam: Present: warm, radial pulses palpable and symetrical. Absent : calf tenderness, cyanotic, pedal edema - Neurological Exam Neurological exam: Present: CN II-XII intact, oriented X3, no focal deficits. Absent: pronater drift, facial droop, speech deficit - Skin Skin exam: Present: dry, intact Internal Medicine: Result - Labs CBC & Chem 7: 07/25/16 04:49 07/25/16 04:49 - ABG Interpretation ABG results: PT/INR, D-dimer PT 12.0 Seconds (9.4-12.1) 07/22/16 04:19 Consult Discharge Plan - Plan Additional Instructions: Biopsy scheduled for July 27 at 8:45. Please be at the hospital at 8:30. Please come to Outpatient Registration. Please do not take your Xarelto on Monday. Referrals: Kenny Lisa MD [Primary Care Provider] - 08/01/16 10:15 am (Please follow up as schedule..)
[2016-07-26] MEDS: *HR* Rivaroxaban 15 MG TABLET PO SCH (16:46)
[2016-07-26] MEDS: Sennosides/Docusate Sodium TABLET PO SCH ×2 (16:57→20:27)
[2016-07-26] MEDS ORDERED: Sennosides/Docusate Sodium TABLET PO SCH (21:00)
[2016-07-26] MEDS: *HR* OxyCODONE Immed Rel 5 MG TABLET PO PRN (22:20)
[2016-07-26] MEDS ORDERED: *HR* Morphine 2 MG/ML SYRINGE IVP PRN (22:37)
[2016-07-27] MEDS: levETIRAcetam 250 MG TABLET PO SCH (05:15)
[2016-07-27] MEDS: *HR* OxyCODONE Immed Rel 5 MG TABLET PO PRN (05:16)
[2016-07-27] MEDS ORDERED: *HR* OxyCODONE Immed Rel 5 MG TABLET PO PRN (08:56)
[2016-07-27] MEDS ORDERED: predniSONE 10 MG TABLET PO SCH (09:00)
[2016-07-27] MEDS ORDERED: OxyCODONE CONC 5 MG/0.25 ML ORAL.SYG PO PRN (09:09)
[2016-07-27] MEDS ORDERED: Preparation H Ointment 30 GM TUBE RC PRN (09:10)
[2016-07-27] MEDS: Aspirin Enteric Coated 81 MG Tablet PO SCH (09:11)
[2016-07-27] MEDS: Sennosides/Docusate Sodium TABLET PO SCH (09:11)
[2016-07-27] MEDS: Metoprolol XL (24 HR) Succ 50 MG TAB.ER.24H PO SCH (09:11)
[2016-07-27] MEDS: Loratadine 10 MG TABLET PO SCH (09:12)
--- NOTE | 2016-07-27 09:51 | Palliative Progress Note ---
Date of Encounter: 07/27/16 Time of Encounter: 09:45 - Assessment and plan (1) Chest pain Current Visit: Yes Status: Acute Assessment and plan: Will increase Oxycodone to 10mg every 6 hours PRN. Add Liquid Oxycodone concentrate 10mg PRN if needed. Have lost Iv access. Will add prednisone as she states this feels typical of costochondritis pain she has had in the past and steroids have been helpful. Avoid NSAIDS r/t renal function Qualifiers: Chest pain type: intercostal pain Qualified Code(s): R07.82 - Intercostal pain (2) Anxiety Current Visit: No Status: Chronic Assessment and plan: Continue on Serax as scheduled at home. Will add ativan intensol PRN on discharge. (3) Goals of care, counseling/discussion Current Visit: Yes Status: Acute Assessment and plan: Hospice met with pt/daughter/son yesterday. Oxygen to be set up this am. At this point, she states that she cannot go home until pain is better controlled. Will check on her again in few hours. If pain still an issue, pt could be discharged and we can transition to general in hospice for symptom control and discharge home when medications adjusted where she is more comfortable. (4) Left breast mass Current Visit: Yes Status: Acute (5) Atrial fibrillation Current Visit: Yes Status: Chronic Qualifiers: Atrial fibrillation type: chronic Qualified Code(s): I48.2 - Chronic atrial fibrillation (6) Seizure Current Visit: Yes Status: Acute (7) Ischemic cardiomyopathy Current Visit: Yes Status: Chronic - Time Spent With Patient Total time spent is greater than 50% in coordination of care (as documented) at patient's floor/unit and/or counseling patient: 25 - 35 minutes - Subjective Interval history: Patient awake, alert and talkative. Up in bathroom by herself. + BM. C/o some hemorrhoidal pain. No family present. In some distress with left sided chest/ rib back radiating around her back. Stated pain pill earlier this am did not help. - Constitutional Vitals: Abnormal lab results WBC 4.1 K/mcL (4.3-11.1) L 07/25/16 04:49 RBC 3.57 M/mcL (3.82-4.97) L 07/25/16 04:49 Hgb 10.9 g/dL (11.5-15.4) L 07/25/16 04:49 Hct 33.9 % (35.3-44.9) L 07/25/16 04:49 RDW 14.9 % (11.5-14.5) H 07/25/16 04:49 Plt Count 92 K/mcL (140-400) L 07/25/16 04:49 BUN 41 mg/dL (7-20) H D 07/25/16 04:49 Creatinine 1.69 mg/dL (0.57-1.11) H 07/25/16 04:49 Est GFR ( Amer) 35 (> 60) L 07/25/16 04:49 Est GFR (Non-Af Amer) 29 (> 60) L 07/25/16 04:49 Glucose 104 mg/dL (70-99) H 07/25/16 04:49 POC Glucose 145 (58-89) H 07/23/16 20:57 Calcium 8.5 mg/dL (8.6-10.8) L 07/25/16 04:49 B-Natriuretic Peptide 1330 pg/mL (0-100) H 07/22/16 04:19 General appearance: Present: no acute distress - Respiratory Respiratory exam: Present: decreased breath sounds, CTAB - Cardiovascular Cardiovascular exam: Present: irregular rhythm - GI/Abdominal GI/Abdominal exam: Present: normal bowel sounds, soft - Extremities Exam Extremities exam: Present: normal capillary refill, normal inspection - Neurological Exam Neurological exam: Present: alert, oriented X3, strengths equal and symetr throughout - Skin Skin exam: Present: dry, pallor, warm Palliative Quality Palliative Quality: Screen for Code Status: Yes, Screen for Goals of Care: Yes, Screen for Pain: Yes, If Pain Regimen Started, Initiate Bowel Regimen: Yes, Screen for Nausea/Vomitting: Yes - Labs CBC & Chem 7: 07/25/16 04:49 07/25/16 04:49 - ABG Interpretation ABG results: PT/INR, D-dimer PT 12.0 Seconds (9.4-12.1) 07/22/16 04:19 Consult Discharge Plan - Plan Additional Instructions: Biopsy scheduled for July 27 at 8:45. Please be at the hospital at 8:30. Please come to Outpatient Registration. Please do not take your Xarelto on Monday. Referrals: Kenny Lisa MD [Primary Care Provider] - 08/01/16 10:15 am (Please follow up as schedule..)
--- NOTE | 2016-07-27 11:37 | Event Note ---
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 Start: 07/27/2016 Hospice benefit. In: +90 days Palliative performance scale: 40% History: Issue with a history of severe CAD, with ejection fraction of approximately 30% segmental left ventricular dysfunction. She also has a history of an aortic aneurysm. The patient also has a left breast mass which is felt to be malignant , however the patient does not wish to have any workup done including biopsy. He is opting for for comfort care only. Given that she has a probable cancer for which there is good to be no aggressive care, as well as her coronary artery disease combination of factors makes me believe that These findings support a life expectancy of 6 months or less. I attest that I have compose the above narrative based on my review of the patient's medical records, and or on my examination of the patient. Howie Swan M.D. Associate medical research tech. [facility]
[2016-07-27 12:11] VITALS: BP 157/82
--- NOTE | 2016-07-27 13:26 | Discharge Summary ---
Date of Encounter: 07/27/16 Time of Encounter: 11:45 - Discharge Diagnosis (1) Chest pain Priority: Primary Status: Acute Qualifiers: Chest pain type: intercostal pain Qualified Code(s): R07.82 - Intercostal pain (2) Essential hypertension Priority: Secondary Status: Acute (3) Left breast mass Priority: Primary Status: Acute (4) Seizure Priority: Primary Status: Acute (5) Atrial fibrillation Priority: Secondary Status: Chronic Qualifiers: Atrial fibrillation type: chronic Qualified Code(s): I48.2 - Chronic atrial fibrillation (6) CAD (coronary artery disease) Priority: Secondary Status: Chronic Qualifiers: Coronary Disease-Associated Artery/Lesion type: bypass graft [place] vs. transplanted heart: [place] heart Associated angina: with unstable angina Qualified Code(s): I25.700 - Atherosclerosis of coronary artery bypass graft(s) , unspecified, with unstable angina pectoris (7) Migraine Priority: Secondary Status: Resolved Qualifiers: Migraine type: without aura Status migrainosus presence: without status migrainosus Intractability: intractable Qualified Code(s): G43.019 - Migraine without aura, intractable, without status migrainosus (8) CHF (congestive heart failure) Priority: Secondary Status: Chronic Qualifiers: Congestive heart failure type: systolic Congestive heart failure chronicity : chronic Qualified Code(s): I50.22 - Chronic systolic (congestive) heart failure (9) Ischemic cardiomyopathy Priority: Secondary Status: Chronic - Discharge Medications Home Medications: RX: Oxazepam [Serax] 15 mg PO BID 02/19/15 [History] RX: Rivaroxaban [Xarelto] 15 mg PO 1700 #30 tablet 10/13/15 [Rx] RX: Metoprolol XL (24 HR) Succ [Toprol Xl] 50 mg PO DAILY #60 tab.er.24h [Rx] Acetaminophen [Tylenol] 650 mg PO Q6HR PRN 07/27/16 [History] Bisacodyl [Dulcolax] 10 mg RC HS PRN 07/27/16 [History] LORazepam [Ativan] 0.5 mg PO Q4HR PRN 07/27/16 [History] LevETIRAcetam [Keppra] 500 mg PO Q12H 07/27/16 [History] Loratadine [Claritin] 5 mg PO BID 07/27/16 [History] Omeprazole [PriLOSEC] 20 mg PO DAILY 07/27/16 [History] OxyCODONE Immed Rel [Roxicodone 5 MG] 10 mg PO Q3H PRN 07/27/16 [History] Phenyleph/Pramoxin/Glycr/W.pet [Preparation H Cream] 1 appl RC 07/27/16 [History ] PredniSONE [Deltasone] 20 mg PO DAILY 07/27/16 [History] Prochlorperazine Maleate [Compazine] 10 mg PO Q6H PRN 07/27/16 [History] RX: Aspirin 81 mg PO DAILY 07/27/16 [History] RX: OxyCODONE CONC 10 mg PO Q3H PRN 07/27/16 [History] Sennosides/Docusate Sodium [Senna Plus] 1 each PO BID 07/27/16 [History] Allergies/Adverse Reactions: Allergies morphine Adverse Reaction (Severe, Verified 07/27/16 12:55) severe headache/questionable seizure nitroglycerin Adverse Reaction (Verified 07/22/16 03:01) Headache Date of admission: 07/24/16 11:15 Primary care physician: Kenny Lisa MD Discharging clinician: Enrique Miranda Anticipated date of discharge: 07/27/16 - Patient Status Disposition: Hospice - Medical Facility Condition: Good Functional capacity at discharge: bed bound Overall status at discharge: patient is progressing back to baseline - Discharge Instructions Follow Up With: Kenny Lisa MD [Primary Care Provider] - 08/01/16 10:15 am (Please follow up as schedule..) Additional Instructions: Biopsy scheduled for July 27 at 8:45. Please be at the hospital at 8:30. Please come to Outpatient Registration. Please do not take your Xarelto on Monday. - Diet and Activity Activity: resume usual activities as tolerated Diet: advance to your usual diet Interval History: See below Hospital course: Ms. Saenz is a 86 year old female with CAD s/p CABG with ischemic cardiomyopathy, Systolic CHF not in fluid overload, HTN, CKD, Afib, Costochondiritis, new L breast mass concerning for malignancy She has also had new onset seizures since hospitalization, no recurrence She is seen at bedside Complains of chest pain, relieved by medication, not new or worse from prior She is [id number] She will be discharged from hospitalist service to in-patient hospice Palliative care is on board and aware - Time Spent with Patient Total time spent providing and/or coordinating discharge services: Less than 30 minutes - Constitutional Vitals: Temp Pulse Resp BP Pulse Ox 97.6 F 74 16 157/82 95 07/27/16 12:11 07/27/16 12:11 07/27/16 12:11 07/27/16 12:11 07/27/16 12:11 General appearance: Present: cooperative, A&O X 3, pleasant, no acute distress, answers questions appropriately - Head Head exam: Present: atraumatic, normocephalic - Eye Eye exam: Present: PERRL, conjuntiva pink, sclera anicteric Pupils: Present: PERRL - Neck Neck exam general surgery: Present: supple, trachea midline. Absent: lymphadenopathy - Respiratory Respiratory exam: Present: CTAB Additional comments: Left chest wall tenderness - Cardiovascular Cardiovascular exam: Present: RRR, +S1, +S2. Absent: diastolic murmur, gallop, rubs, systolic murmur - GI/Abdominal GI/Abdominal exam: Present: normal bowel sounds, soft, no peritoneal signs. Absent: distended, tenderness - Extremities Exam Extremities exam: Present: warm, radial pulses palpable and symetrical. Absent : calf tenderness, cyanotic, pedal edema - Neurological Exam Neurological exam: Present: CN II-XII intact, oriented X3, no focal deficits. Absent: pronater drift, facial droop, speech deficit - Skin Skin exam: Present: dry
== END 2016-07-27 13:38 | disposition hospice, inpatient (51) | DRG 206 ==
LOC: 3BNU 02:46 → EMEROO 02:46 → SUATTDRO 05:37 → 3BNU 06:47 → 2ANU 07-23 23:36 → SUATTDRO 07-24 11:15
PROVIDERS: ADMIT Nurse Practitioner Family; ATTEND Internal Medicine

== ENCOUNTER 2016-07-27 11:39 | Inpatient (IN) ==
[2016-07-27] MEDS ORDERED: *HR* LORazepam 0.5 MG TABLET PO PRN (12:28)
[2016-07-27] MEDS ORDERED: *HR* OxyCODONE Immed Rel 5 MG TABLET PO PRN (12:28)
[2016-07-27] MEDS ORDERED: OxyCODONE CONC 5 MG/0.25 ML ORAL.SYG PO PRN ×2 (12:28→13:55)
[2016-07-27] MEDS ORDERED: Bisacodyl 10 MG RECTAL SUPPOSITORY RC PRN (12:28)
[2016-07-27] MEDS ORDERED: Acetaminophen 325 MG TABLET PO PRN (12:33)
--- NOTE | 2016-07-27 12:43 | Palliative - Consult Note ---
Date of Encounter: 07/27/16 Time of Encounter: 13:00 - Assessment and Plan (1) Left sided chest pain Status: Acute Assessment and plan: Will increase Oxycodone to 10 mg every 6 hours, utilize Oral concentrate for breakthrough if needed. Avoid NSAIDS r/t renal function. Will begin Prednisone, as she feels this pain is related to costochrondritis. Monitor and adjust medications accordingly. (2) Seizure Status: Acute Assessment and plan: New onset seizure last Monday pm. Will continue on Keppra. This occurred a couple of hours after Morphine administration. She also stated that the only other time she remembered having Morphine, she had a severe headache that lasted for 3-4 days. (3) Anxiety Status: Chronic Assessment and plan: Continue Serax per home dose. Ativan in addition PRN. (4) Goals of care, counseling/discussion Status: Acute Assessment and plan: Discussed with pt and daughter Teri. She had acute pain this am which caused her much distress. Will adjust and titrate medications for comfort. Plan for discharge on Monday afternoon if she is stable and more comfortable. Palliative-CN HPI - Data of Consult Requesting Physician: Howie Swan MD - Consult Narrative History of present illness: Ms. Saenz is a 86 year old female who presented to the hospital with c/o left chest pain and was admitted. She has suspected left breast malignancy, which she has denied any biopsy or investigation of. She has cardiomyopathy,, Last EF 30%, as well as CAD, COPD, atrial fibrillation, and had new onset seizure last Monday during hospital stay. She has refused any cardiac interventions, and she has been told she is not a surgical candidate. Conversations were held with pt and children and she decided to pursue comfort management and DO NOT RESUSCITATE status. Patient and her daughter, Jovana, met with hospice nurse to obtain information, and did decide to transition to hospice care. It was anticipated pt would be discharged today, however, she had increasing left chest wall/breast pain, and stated she feels terrible today. She was discharged from hospitalist service and re-admitted as general inpt hospice care for intense symptom control. Will increase and adjust pain medications and evaluate her on a daily basis. Anticipating she may be ready for d/c home on Monday. CC: Howie Swan MD Past Med Surg Social Fam HX - Past Medical History Medical history: aortic aneurysm, atrial fibrillation, CHF, COPD, coronary artery disease, hyperlipidemia, hypertension, myocardial infarction, TIA Psychiatric history: anxiety - Past Surgical History Surgical History: appendectomy, coronary bypass (CABG) - Social History Smoking Status: Former smoker Smokeless Tobacco Status: No Alcohol use: none Drug use: none - Family History Father Adopted: No Living Status: Hx Family Cardiac Disorders: Yes Hx Family Respiratory Disorders: Yes (emphysema) Hx Family Cancer: Yes (MOTHER COLON CA) Mother Living Status: Medications and Allergies Oxazepam [Serax] 15 mg PO QID PRN 02/19/15 [History] Rivaroxaban [Xarelto] 15 mg PO 1700 #30 tablet 10/13/15 [Rx] Metoprolol XL (24 HR) Succ [Toprol Xl] 50 mg PO DAILY #60 tab.er.24h 10/14/15 [ Rx] Ibuprofen [Motrin] 200 mg PO Q4HR PRN 07/22/16 [History] Allergies morphine Adverse Reaction (Severe, Verified 07/27/16 12:55) severe headache/questionable seizure nitroglycerin Adverse Reaction (Verified 07/22/16 03:01) Headache - Constitutional Constitutional ROS PAL: malaise - Cardiovascular Cardiovascular ROS: chest pain at rest, chest pain with activity, palpitations - Gastrointestinal Gastrointestinal: constipation - Musculoskeletal Additional comments: Left ribcage pain radiating to back Palliative Care-Exam - Constitutional General appearance: Present: average body habitus, no acute distress - Head Head Exam: Present: normal inspection, normocephalic - ENT ENT exam: Present: mucous membranes moist - Respiratory Respiratory exam: Present: CTAB - Cardiovascular Cardiovascular exam: Present: irregular rhythm - GI/Abdominal Exam GI/Abdominal exam: Present: normal bowel sounds, soft - Extremities Exam Extremities exam: Present: normal capillary refill, normal inspection - Neurological Exam Neurological exam: Present: alert, oriented X3, strengths equal and symetr throughout Additional comments: Generalized weakness - Skin Skin exam: Present: dry, pallor, warm Additional comments: Palpable left breast mass Palliative Quality Palliative Quality: Screen for Code Status: Yes, Screen for Goals of Care: Yes, Screen for Pain: Yes, If Pain Regimen Started, Initiate Bowel Regimen: Yes, Screen for Nausea/Vomitting: Yes Code Status: 07/27/16 12:28 Resuscitation Status: Active [RES] Routine Comment: Resuscitation Status: DNR-Comfort Care
--- NOTE | 2016-07-27 13:18 | Pallative History & Physical ---
Date of Encounter: 07/27/16 Time of Encounter: 13:13 Assessment and Plan (1) Anxiety Status: Chronic Continue Serax, as at home and Ativan will be available. (2) Chest pain Status: Acute Pleuritic left-sided chest pain code on has been increased weight in seeds due to renal function will be started on prednisone. Qualifiers: Chest pain type: unspecified Qualified Code(s): R07.9 - Chest pain, unspecified (3) Seizure Status: Acute Continue Keppra, as the patient associates these with morphine administration will try to avoid morphine. (4) Atrial fibrillation Status: Chronic Chronic, rate is controlled. Consider stopping xeralto soon. Qualifiers: Atrial fibrillation type: chronic Qualified Code(s): I48.2 - Chronic atrial fibrillation (5) Goals of care, counseling/discussion Status: Acute She is now under care of hospice for general inpatient hospice treatment of pleuritic chest pain. Patient will be anticipated to go home on Monday. Be going home with hospice. Internal Medicine - H&P: HPI Admitted From: Intrahospital Transfer Plans for Post Hospital Care: Hospice - Home History of present illness: Ms. Saenz is a 86 year old female Was admitted to the hospital with chest pain and suspected left breast malignancy. He has opted not to have any further investigation of the left breast possible malignancy. She does have a history of cardiomyopathy with last ejection fraction of 30% as well as CAD, COPD and atrial fibrillation. She had new onset seizures. Fused any further cardiac interventions and she has been told she is not a surgical candidate. He has now opted to become comfort care under the care of hospice. She has been having increasing chest wall and breast pain he will be broadened to general inpatient hospice for symptom control of this pain and then she will be going home with hospice. Past Med Surg Social Fam HX - Past Medical History Medical history: aortic aneurysm, atrial fibrillation, CHF, COPD, coronary artery disease, hyperlipidemia, hypertension, myocardial infarction, TIA Psychiatric history: anxiety - Past Surgical History Surgical History: appendectomy, coronary bypass (CABG) - Social History Smoking Status: Former smoker Smokeless Tobacco Status: No Alcohol use: none Drug use: none - Family History Father Adopted: No Living Status: Hx Family Cardiac Disorders: Yes Hx Family Respiratory Disorders: Yes (emphysema) Hx Family Cancer: Yes (MOTHER COLON CA) Mother Living Status: Internal Medicine - H&P: Meds Oxazepam [Serax] 15 mg PO QID PRN 02/19/15 [History] Rivaroxaban [Xarelto] 15 mg PO 1700 #30 tablet 10/13/15 [Rx] Metoprolol XL (24 HR) Succ [Toprol Xl] 50 mg PO DAILY #60 tab.er.24h 10/14/15 [ Rx] Ibuprofen [Motrin] 200 mg PO Q4HR PRN 07/22/16 [History] Allergies morphine Adverse Reaction (Severe, Verified 07/27/16 12:55) severe headache/questionable seizure nitroglycerin Adverse Reaction (Verified 07/22/16 03:01) Headache - Constitutional Constitutional ROS PAL: malaise, no decreased appetite, no frequent falls, no lethargy - EENT Eyes: no discharge, no pain Ears: no ear discharge, no ear pain Ears, nose, mouth, throat: no dysphagia, no epistaxis, no mouth pain, no nasal congestion - Cardiovascular Cardiovascular ROS: chest pain, chest pain at rest, chest pain with activity, irregular heart rhythm, palpitations - Respiratory Respiratory: dyspnea on exertion, no dyspnea - Gastrointestinal Gastrointestinal: constipation, no diarrhea, no nausea, no vomiting - Genitourinary Palliative ROS female: no urinary frequency, no urinary hesitancy, no urinary incontinence - Musculoskeletal Musculoskeletal ROS IM: back pain (From pain radiating from the chest) - Integumentary ROS Integumentary: no skin ulcer, no sores - Neurological Neurological ROS: no behavioral changes, no burning sensations, no dizziness, no focal weakness - Psychiatric Psychiatric general PM: no homicidal ideation, no suicidal ideation - Endocrine Endocrine IM: other Additional comments: No diabetes or thyroid problems. Palliative Care-Exam - Constitutional General appearance: Present: average body habitus, no acute distress - Head Head Exam: Present: atraumatic, normal inspection - Eye Eye exam: Present: EOMI, normal appearance, PERRL - ENT ENT exam: Present: mucous membranes moist - Neck Neck exam: Present: normal inspection - Respiratory Respiratory exam: Present: chest wall tenderness, CTAB - Cardiovascular Cardiovascular exam: Present: irregular rhythm - GI/Abdominal Exam GI/Abdominal exam: Present: normal bowel sounds, soft. Absent: tenderness - Extremities Exam Extremities exam: Present: normal inspection. Absent: pedal edema, tenderness - Neurological Exam Neurological exam: Present: alert, oriented X3 - Psychiatric Psychiatric exam: Present: normal affect, normal mood. Absent: agitated, anxious - Skin Skin exam: Present: dry, warm Palliative Quality Palliative Quality: Screen for Code Status: Yes, Screen for Goals of Care: Yes, Screen for Pain: Yes, If Pain Regimen Started, Initiate Bowel Regimen: Yes, Screen for Nausea/Vomitting: Yes Code Status: 07/27/16 12:28 Resuscitation Status: Active [RES] Routine Comment: Resuscitation Status: DNR-Comfort Care
[2016-07-27] MEDS ORDERED: Preparation H Ointment 30 GM TUBE RC PRN (15:34)
[2016-07-27] MEDS ORDERED: *HR* Rivaroxaban 15 MG TABLET PO SCH (17:00)
[2016-07-27] MEDS: levETIRAcetam 250 MG TABLET PO SCH (17:03)
[2016-07-27] MEDS: Loratadine 10 MG TABLET PO SCH (21:20)
[2016-07-27] MEDS: Bisacodyl 10 MG RECTAL SUPPOSITORY RC SCH (21:20)
[2016-07-27] MEDS: Sennosides/Docusate Sodium TABLET PO SCH (21:20)
[2016-07-27] MEDS: *HR* OxyCODONE Immed Rel 5 MG TABLET PO PRN (22:12)
[2016-07-28] MEDS: levETIRAcetam 250 MG TABLET PO SCH ×2 (06:03→18:07)
[2016-07-28] MEDS: Sennosides/Docusate Sodium TABLET PO SCH ×2 (09:17→21:44)
[2016-07-28] MEDS: predniSONE 20 MG TABLET PO SCH (09:17)
[2016-07-28] MEDS: Metoprolol XL (24 HR) Succ 50 MG TAB.ER.24H PO SCH (09:17)
[2016-07-28] MEDS: *HR* OxyCODONE Immed Rel 5 MG TABLET PO PRN ×3 (09:18→21:50)
[2016-07-28] MEDS: Loratadine 10 MG TABLET PO SCH ×2 (09:19→22:11)
[2016-07-28] MEDS: Aspirin 81 MG TAB.CHEW PO SCH (09:20)
--- NOTE | 2016-07-28 11:17 | Palliative Progress Note ---
Date of Encounter: 07/28/16 Time of Encounter: 08:45 - Assessment and plan (1) Anxiety Current Visit: No Status: Chronic Assessment and plan: Continue Serax, as at home and Ativan will be available. Under control at this time no changes are anticipated (2) Chest pain Current Visit: No Status: Acute Assessment and plan: Pleuritic left-sided chest pain code on has been increased weight in seeds due to renal function will be started on prednisone. This seems to be relatively effective, I have asked the patient to make sure that she uses for breakthrough medications as needed he has been reluctant to utilize them. Qualifiers: Chest pain type: unspecified Qualified Code(s): R07.9 - Chest pain, unspecified (3) Seizure Current Visit: No Status: Acute Assessment and plan: Continue Keppra, as the patient associates these with morphine administration will try to avoid morphine. (4) Atrial fibrillation Current Visit: No Status: Chronic Assessment and plan: Chronic, rate is controlled. After discussion today we will stops her altered today. Qualifiers: Atrial fibrillation type: chronic Qualified Code(s): I48.2 - Chronic atrial fibrillation (5) Goals of care, counseling/discussion Current Visit: No Status: Acute Assessment and plan: She is now under care of hospice for general inpatient hospice treatment of pleuritic chest pain. Patient will be anticipated to go home on Monday. Be going home with hospice. Plan [place] for Monday afternoon after the patient's daughter has her CT scan. - Time Spent With Patient Total time spent is greater than 50% in coordination of care (as documented) at patient's floor/unit and/or counseling patient: - Subjective Interval history: Patient did have some achy pain earlier but she states this is much better now, she is using a very minimal amount of her pain medication at this time I have asked her to use it when she needs it. - Constitutional General appearance: Present: no acute distress - Head Head exam: Present: atraumatic, normal inspection - Eye Eye exam: Present: normal appearance - Neck Neck exam: Present: normal inspection - Respiratory Respiratory exam: Present: chest wall tenderness (On the left side, however there is no rash), decreased breath sounds - Cardiovascular Cardiovascular exam: Present: RRR - GI/Abdominal GI/Abdominal exam: Present: normal bowel sounds, soft. Absent: tenderness - Extremities Exam Extremities exam: Present: normal inspection. Absent: pedal edema, tenderness - Neurological Exam Neurological exam: Present: alert, oriented X3 - Psychiatric Psychiatric exam: Present: normal affect, normal mood. Absent: agitated, anxious - Skin Skin exam: Present: dry, warm. Absent: rash ([place] looking for any rash in the area of the discomfort of the left hand side of the chest no rashes noted. There is also no hyperesthesia.) Palliative Quality Palliative Quality: Screen for Code Status: Yes, Screen for Goals of Care: Yes, Screen for Pain: Yes, If Pain Regimen Started, Initiate Bowel Regimen: Yes, Screen for Nausea/Vomitting: Yes Code Status: 07/27/16 12:28 Resuscitation Status: Active [RES] Routine Comment: Resuscitation Status: DNR-Comfort Care Consult Discharge Plan - Plan Referrals: NO,PCP [Non-Partnered Physician] - (PATIENT IS GIP )
[2016-07-28] MEDS: Bisacodyl 10 MG RECTAL SUPPOSITORY RC SCH (23:11)
[2016-07-29] MEDS: levETIRAcetam 250 MG TABLET PO SCH (05:37)
[2016-07-29] MEDS: *HR* OxyCODONE Immed Rel 5 MG TABLET PO PRN ×2 (05:40→11:54)
[2016-07-29 07:27] VITALS: BP 144/91
[2016-07-29] MEDS: Sennosides/Docusate Sodium TABLET PO SCH (07:44)
[2016-07-29] MEDS: predniSONE 20 MG TABLET PO SCH (07:44)
[2016-07-29] MEDS: Metoprolol XL (24 HR) Succ 50 MG TAB.ER.24H PO SCH (07:44)
[2016-07-29] MEDS: Aspirin 81 MG TAB.CHEW PO SCH (07:44)
[2016-07-29] MEDS: Loratadine 10 MG TABLET PO SCH (07:44)
--- NOTE | 2016-07-29 09:27 | Discharge Summary ---
Date of Encounter: 07/29/16 Time of Encounter: 09:10 - Discharge Diagnosis (1) Anxiety Priority: Primary Status: Chronic (2) Chest pain Priority: Primary Status: Acute Qualifiers: Chest pain type: unspecified Qualified Code(s): R07.9 - Chest pain, unspecified (3) Seizure Priority: Primary Status: Acute (4) Atrial fibrillation Priority: Secondary Status: Chronic Qualifiers: Atrial fibrillation type: chronic Qualified Code(s): I48.2 - Chronic atrial fibrillation (5) Goals of care, counseling/discussion Priority: Secondary Status: Acute - Discharge Medications Home Medications: Metoprolol XL (24 HR) Succ [Toprol Xl] 50 mg PO DAILY #60 tab.er.24h 10/14/15 [ Rx] Acetaminophen [Tylenol] 650 mg PO Q6HR PRN 07/27/16 [History] Aspirin 81 mg PO DAILY 07/27/16 [History] Bisacodyl [Dulcolax] 10 mg RC HS PRN 07/27/16 [History] LORazepam [Ativan] 0.5 mg PO Q4HR PRN 07/27/16 [History] LevETIRAcetam [Keppra] 500 mg PO Q12H 07/27/16 [History] Loratadine [Claritin] 5 mg PO BID 07/27/16 [History] Omeprazole [PriLOSEC] 20 mg PO DAILY 07/27/16 [History] OxyCODONE Immed Rel [Roxicodone 5 MG] 10 mg PO Q3H PRN 07/27/16 [History] Phenyleph/Pramoxin/Glycr/W.pet [Preparation H Cream] 1 appl RC 07/27/16 [History ] Prochlorperazine Maleate [Compazine] 10 mg PO Q6H PRN 07/27/16 [History] Sennosides/Docusate Sodium [Senna Plus] 1 each PO BID 07/27/16 [History] Acetaminophen [Tylenol] 650 mg PO Q6HR PRN #0 tablet 07/29/16 [Rx] Bisacodyl [Dulcolax] 10 mg RC HS PRN #5 supp.rect 07/29/16 [Rx] LORazepam Oral Conc [Ativan Oral Conc] 1 mg PO Q6HR PRN #30 mls 07/29/16 [Rx] LORazepam [Ativan] 0.5 mg PO Q4HR PRN #20 tablet 07/29/16 [Rx] LevETIRAcetam [Keppra] 500 mg PO Q12HR #10 tablet 07/29/16 [Rx] Metoprolol XL (24 HR) Succ [Toprol Xl] 50 mg PO DAILY tab.er.24h 07/29/16 [Rx] Omeprazole [PriLOSEC] 20 mg PO DAILY@0630 capsule.dr 07/29/16 [Rx] Oxazepam [Serax] 15 mg PO TID #15 capsule 07/29/16 [Rx] OxyCODONE CONC 10 mg PO Q3H PRN #30 ml 07/29/16 [Rx] OxyCODONE Immed Rel [Roxicodone 5 MG] 10 mg PO Q2H PRN #80 tablet 07/29/16 [Rx] PredniSONE 10 mg PO DAILY #10 tablet 07/29/16 [Rx] Preparation H Ointment 1 appl RC BID PRN #0 tube 07/29/16 [Rx] Prochlorperazine Maleate [Compazine] 10 mg PO Q6HR PRN #0 tablet 07/29/16 [Rx] Sennosides/Docusate Sodium [Senna Plus] 2 each PO BID #20 tablet 07/29/16 [Rx] Allergies/Adverse Reactions: Allergies morphine Adverse Reaction (Severe, Verified 07/27/16 12:55) severe headache/questionable seizure nitroglycerin Adverse Reaction (Verified 07/22/16 03:01) Headache Internal Medicine - DS: Prov Date of admission: 07/27/16 13:41 Primary care physician: Kenny Lisa MD Consults: 07/27/16 12:28 Consult to Palliative Care [CONS] Routine Comment: Consulting Provider: Palliative Care [place] - Patient Status Disposition: Hospice - Home Condition: Fair Functional capacity at discharge: uses cane/walker - Discharge Instructions Instructions: Chest Pain (DC), Heart Failure (DC) Follow Up With: NO,PCP [Non-Partnered Physician] - (PATIENT IS GIP ) - Hospital Course Hospital course: Ms. Saenz is a 86 year old female was of [facility] for symptom control pt still with some l side chest pain but overall better to go home today Time spent discussing smoking cessation with patient: 3 to 10 minutes - Time Spent with Patient Total time spent providing and/or coordinating discharge services: Less than 30 minutes Internal Medicine - DS: Exam - Constitutional Vitals: Vital Signs Temp Pulse Resp BP Pulse Ox 07/29/16 07:19 97.6 F 72 20 144/91 96 07/28/16 21:30 98.5 F 07/28/16 20:23 98.5 F 74 16 124/75 96 Intake and Output 07/28/16 07/29/16 07/29/16 23:59 07:59 15:59 Intake Total 360 / 360 200 / 200 Output Total 0 / 0 Balance 360 / 360 200 / 200 Intake: Oral 360 / 360 200 / 200 Output: Urine 0 / 0 Other: Meal Dinner Percent of Meal Consumed 100% # Voids 1 Weight 55.202 kg Patient Weight 07/29/16 23:59 Weight 55.202 kg General appearance: no acute distress - Head Head exam: Present: atraumatic, normal inspection - Eye Eye exam: Present: EOMI, PERRL - ENT ENT exam: Present: mucous membranes moist - Neck Neck exam: Present: normal inspection - Respiratory Respiratory exam: Present: chest wall tenderness (on l side), CTAB - Cardiovascular Cardiovascular exam: Present: RRR - GI/Abdominal GI/Abdominal exam: Present: normal bowel sounds, soft. Absent: tenderness - Extremities Exam Extremities exam: Absent: pedal edema, tenderness - Neurological Exam Neurological exam: Present: alert, oriented X3 - Psychiatric Psychiatric exam: Present: normal affect, normal mood. Absent: agitated, anxious - Skin Skin exam: Present: dry, warm
== END 2016-07-29 15:01 | disposition hospice, home (50) | DRG 204 ==
LOC: 2ANU 13:41
PROVIDERS: ADMIT Clinical Nurse Specialist Adult Health; ATTEND Family Medicine Hospice and Palliative Medicine

== ENCOUNTER 2016-12-24 06:31 | Observation (INO) ==
[2016-12-24] MEDS ORDERED: Ondansetron 4 MG/2 ML VIAL IVP ONE (07:13)
--- NOTE | 2016-12-24 07:17 | Emergency Department Note ---
Disposition Clinical Impression: Weakness CHF (congestive heart failure) Qualifiers: Congestive heart failure type: unspecified congestive heart failure type Congestive heart failure chronicity: unspecified congestive heart failure chronicity Qualified Code(s): I50.9 - Heart failure, unspecified Disposition: Admitted As Inpatient Condition: Good Time of Disposition: 11:19 Weakness HPI - General Chief complaint: ED Weakness Stated complaint: Leg Pain, Weakness, Abdominal swelling Time Seen by Provider: 12/24/16 06:51 Source: EMS Limitations: no limitations Nursing Notes Reviewed: Yes Vital Signs Reviewed: Yes - History of Present Illness HPI Narrative: 86-year-old female complains of leg swelling, weakness, and abdominal discomfort and swelling. She states the symptoms have been occurring all week have not worsened but they just got to the point where they became frustrated which prompted her visit to the emergency department via EMS. She also mentioned she has had decreased appetite and weight loss of approximately 25 or 30 pounds however she cannot tell me what duration of time the weight loss has occurred. She mentions having discussions with her doctors regarding a mass in the left breast, but states that she declined a biopsy. She denies any chest pain, shortness of breath, recent illness, fevers. Pain Scale: 3 - Related Data Home Medications Medication Instructions Recorded Confirmed Ibuprofen [Motrin] 400 mg PO BID PRN 12/24/16 12/24/16 Metoprolol Tartrate [Lopressor] 50 mg PO BID 12/24/16 12/24/16 Oxazepam [Serax] 15 mg PO QID 12/24/16 12/24/16 Allergies Allergy/AdvReac Type Severity Reaction Status Date / Time morphine AdvReac Severe severe Verified 07/27/16 12:55 headache/questionable seizure nitroglycerin AdvReac Headache Verified 07/22/16 03:01 All systems ED: reviewed and negative except as stated. Constitutional: Denies: fever, chills Eyes: Denies: eye discharge ENT ED: Denies: throat pain Cardiovascular: Reports: dyspnea on exertion. Denies: chest pain, palpitations Respiratory: Reports: dyspnea. Denies: wheezes Gastrointestinal: Reports: as per HPI, nausea, vomiting Genitourinary: Reports: dysuria, frequency Musculoskeletal: Denies: back pain, neck pain Integumentary: Denies: rash Neurological: Reports: as per HPI. Denies: headache Endocrine: Reports: as per HPI Hematological/Lymphatic: Denies: easy bleeding Allergic/Immunologic: Denies: facial swelling Past Medical History - Past Medical History Medical history: Reports: aortic aneurysm, atrial fibrillation, cancer, CHF, COPD, coronary artery disease, hyperlipidemia, hypertension, myocardial infarction, TIA Surgical history: Reports: appendectomy, coronary bypass (CABG) Psychiatric history: Reports: anxiety - Social History Smoking Status: Former smoker Smokeless Tobacco Status: No Alcohol use: Reports: none Drug use: Reports: none Physical Exam - General Limitations: no limitations General appearance: alert, in no apparent distress - Head Head exam: normocephalic - Eye Eye exam: Present: EOMI. Absent: conjunctival injection - ENT ENT exam: normal oropharynx, mucous membranes moist - Neck Neck exam: Present: full ROM - Chest Chest inspection: Present: symmetric chest wall rise - Respiratory Respiratory exam: Present: normal lung sounds bilaterally. Absent: respiratory distress - Cardiovascular Cardiovascular exam: Present: regular rate, normal rhythm - Abdominal Exam Abdominal exam: Present: soft, tenderness Abdominal tenderness: Present: diffuse - Extremities Exam Extremities exam: Present: normal inspection, full ROM, normal capillary refill - Back Exam Back exam: Present: full ROM - Neurological Exam Neurological exam: Present: alert, oriented X3 - Psychiatric Psychiatric exam: Present: normal affect, normal mood - Skin Skin exam: Present: warm, dry, intact, normal color. Absent: rash, cyanosis, diaphoresis Course Course Narrative: 86-year-old female arrives via squad from her home with complaints of weakness. She states that she has been feeling weak over the past 7 days, and it has become frustrating. She states she has had difficulty walking, and also that she has had some bilateral lower extremity edema which has improved while taking edema. She mentions she has had some mild lower abdominal pain, worse when she is walking. She mentions that she was seenin the hospital and was given pain medications which had made her sick. She also mentions that she had been told there was a mass on her left breast, however she describes declining any biopsy her workup and since her daughter has also been recently diagnosed with breast cancer. She also mentions she has had weight loss of 25 or 30 pounds where she is unable to tell me how much time. She denies any shortness of breath, chest pain, fevers. Patient seen and examined. She is in no acute distress, does not look toxic. Workup initiated. - Reevaluation(s) Reevaluation #1: The patient was discussed with Dr. Ceballos, who also had [id number] time with patient. Considering possible cardiac concerns with dyspnea on exertion, urinary tract infection. We will include cardiac labs, lactate her possible ischemia, and she had labs. We will consider CT abdomen contrast after labs. Patient will likely benefit from admission. Time: 08:53 Reevaluation #2: Chest x-ray concerning for left lower lung pneumonia, patient also has elevated BNP. On exam patient has dyspnea on exertion, and mild lower extremity edema. Discussed patient with Dr. Ceballos, who will admit for dyspnea on exertion and LLL pneumonia. Patient urinalysis shows no evidence of urinary tract infection , however patient does mention some abdominal swelling and discomfort. CT abdomen and pelvis pending. Time: 11:00 Reevaluation #3: Pt discussed with and accepted by hospitalist, Dr. Anaya, who also mentioned less concerning for pneumonia but pt will likely need IV lasix. CT abd/pelvis pending. Time: 11:16 Additional Reevaluation(s): @12:31 CT scan results reviewed, radiologist report note small pleural effusions , as well as abdominal and thoracic aortic aneurysms. Both aneurysms. Consistent with previous CT scan from earlier in the month. No acute concerns noted. These results were discussed with Dr. Ceballos, and also discussed with Vital Signs Temperature 97.8 F 12/24/16 06:35 Pulse Rate 72 12/24/16 06:35 Respiratory Rate 20 12/24/16 06:35 Blood Pressure 200/126 12/24/16 06:35 O2 Sat by Pulse Oximetry 95 12/24/16 06:35 Temperature 0 F L 12/24/16 13:56 Pulse Rate 72 12/24/16 06:35 Respiratory Rate 18 12/24/16 13:56 Blood Pressure 143/90 12/24/16 13:56 O2 Sat by Pulse Oximetry 95 12/24/16 06:35 Oxygen Delivery Oxygen Delivery Room Air Weakness - [facility] Narrative Medical decision making narrative: Patient had presented with weakness, and bilateral leg edema, and abdominal discomfort. CT abdomen and pelvis shows no acute concerns, thoracic and abdominal aneurysms appear to be stable. Chest x-ray showed some concern for left lower lobe consolidation, small pleural effusions noted on CT scan. No elevation in white count. Patient afebrile. No hypoxia. She did have an elevated BNP. Patient was discussed with Dr. Patricia Ceballos who also had a son with patient and agreed with workup, and evaluation and admission to hospitalist. Patient was excepted by hospitalist. Vital stable. Chest X-Ray 12/24/16 07:13 IMPRESSION: Left lower lobe consolidation with volume loss, atelectasis versus pneumonia D/ / Shayne Bucio MD / Shayne Bucio MD Interpreting Provider: Shayne Bucio MD Abdomen/Pelvis CT 12/24/16 09:45 IMPRESSION: No acute process. Small pleural effusions noted incidentally as well as abdominal aortic aneurysm and distal descending thoracic aortic aneurysm. RECOMMENDATIONS: Patient has had an aortobifemoral bypass as noted. Therefore the following recommendations are purely for reference. Managing Abdominal Aortic Aneurysms 2.6-2.9 cm: 5 year follow up. 3.0-3.4 cm: 3 year follow up 3.5-3.9 cm: 1 year follow up. 4.0-4.4 cm: 1 year follow up. Recommend vascular consultation. 4.5-5.4 cm: 6 month follow up. Recommend vascular consultation. Greater than or equal to 5.5 cm: Referral to vascular surgeon. Reference: Ulices et al. The care of patients with an abdominal aortic aneurysm: The Society of Vascular Surgery practice guidelines. Journal of Vascular Surgery. Vol 50, Number 85. Maureen et al. Managing Incidental Findings on Abdominal and Pelvic CT and MRI, Part 2: White Paper of the ACR Incidental Findings Committee II on Vascular Findings. J Am Herbert Radiol 2013;10:[id number] D/ / Donato Fox MD / Donato Fox MD Interpreting Provider: Donato Fox MD All Lab Results (24 Hours) 12/24/16 12/24/16 12/24/16 Range/Units 08:23 08:23 08:23 WBC 4.7 (4.3-11.1) K/mcL RBC 3.83 (3.82-4.97) M/mcL Hgb 11.5 (11.5-15.4) g/dL Hct 36.6 (35.3-44.9) % MCV 95.6 (83.0-100.0) fL MCH 30.0 (28.0-33.3) pg MCHC 31.4 L (31.6-35.5) g/dL RDW 15.9 H (11.5-14.5) % Plt Count 117 L (140-400) K/mcL MPV 9.9 (9.4-12.4) fL Immature Gran % 0.2 (0-4) % Seg Neutrophils % 75.1 % Lymphocytes % 13.5 % Monocytes % 8.0 % Eosinophils % 2.6 % Basophils % 0.6 % Neutrophils # 3.5 (1.6-8.9) K/mcL Lymphocytes # 0.6 (0.6-4.6) K/mcL Monocytes # 0.4 (0.0-1.3) K/mcL Eosinophils # 0.1 (0.0-0.6) K/mcL Basophils # 0.0 (0.0-0.2) K/mcL Sodium 141 (136-145) mEq/L Potassium 3.5 (3.5-4.5) mEq/L Chloride 107 (98-109) mEq/L Carbon Dioxide 24 (19-29) mEq/L BUN 19 (7-20) mg/dL Creatinine 1.01 (0.57-1.11) mg/dL Est GFR ( Amer) > 60 (> 60) Est GFR (Non-Af Amer) 52 L (> 60) BUN/Creatinine Ratio 19 (6-26) Glucose 117 H (70-99) mg/dL Calculated Osmolality 295 (280-300) Lactic Acid (0.5-2.2) mmol/L Calcium 9.1 (8.6-10.8) mg/dL Total Bilirubin 1.8 H (0.2-1.2) mg/dL Direct Bilirubin 0.8 H (0.0-0.5) mg/dL AST 22 (5-34) Units/L ALT 12 (0-55) Units/L Alkaline Phosphatase 102 (38-126) Units/L Troponin I 0.03 (0-0.03) ng/mL B-Natriuretic Peptide (0-100) pg/mL Serum Total Protein 6.5 (6.0-8.3) g/dL Albumin 3.6 (3.5-5.0) g/dL Globulin 2.9 (2.4-3.5) g/dL Albumin/Globulin Ratio 1.2 (1.1-2.2) Lipase 19 (8-78) Units/L Urine Color (Yellow) Urine Clarity (Clear) Urine pH (5.0-8.0) pH Units Ur Specific [place] (1.010-1.025) Urine Protein (Neg-Trace) mg/dL Urine Glucose (UA) (Normal) mg/dL Urine Ketones (Negative) mg/dL Urine Blood (Negative) Urine Nitrite (Negative) Urine Bilirubin (Negative) Urine Urobilinogen (Normal) mg/dL Ur Leukocyte Esterase (Negative) Urine Microscopic RBC (0-3) per hpf Urine Microscopic WBC (0-3) per hpf Ur Squamous Epith Cells (None-Few) per lpf Urine Bacteria (None-Few) per hpf Hyaline Casts (None-Few) per lpf Ur Culture Indicated? (NO) 12/24/16 12/24/16 12/24/16 Range/Units 08:24 08:24 09:45 WBC (4.3-11.1) K/mcL RBC (3.82-4.97) M/mcL Hgb (11.5-15.4) g/dL Hct (35.3-44.9) % MCV (83.0-100.0) fL MCH (28.0-33.3) pg MCHC (31.6-35.5) g/dL RDW (11.5-14.5) % Plt Count (140-400) K/mcL MPV (9.4-12.4) fL Immature Gran % (0-4) % Seg Neutrophils % % Lymphocytes % % Monocytes % % Eosinophils % % Basophils % % Neutrophils # (1.6-8.9) K/mcL Lymphocytes # (0.6-4.6) K/mcL Monocytes # (0.0-1.3) K/mcL Eosinophils # (0.0-0.6) K/mcL Basophils # (0.0-0.2) K/mcL Sodium (136-145) mEq/L Potassium (3.5-4.5) mEq/L Chloride (98-109) mEq/L Carbon Dioxide (19-29) mEq/L BUN (7-20) mg/dL Creatinine (0.57-1.11) mg/dL Est GFR ( Amer) (> 60) Est GFR (Non-Af Amer) (> 60) BUN/Creatinine Ratio (6-26) Glucose (70-99) mg/dL Calculated Osmolality (280-300) Lactic Acid 0.9 (0.5-2.2) mmol/L Calcium (8.6-10.8) mg/dL Total Bilirubin (0.2-1.2) mg/dL Direct Bilirubin (0.0-0.5) mg/dL AST (5-34) Units/L ALT (0-55) Units/L Alkaline Phosphatase (38-126) Units/L Troponin I (0-0.03) ng/mL B-Natriuretic Peptide 1889 H (0-100) pg/mL Serum Total Protein (6.0-8.3) g/dL Albumin (3.5-5.0) g/dL Globulin (2.4-3.5) g/dL Albumin/Globulin Ratio (1.1-2.2) Lipase (8-78) Units/L Urine Color Yellow (Yellow) Urine Clarity Clear (Clear) Urine pH 6.0 (5.0-8.0) pH Units Ur Specific [place] 1.021 (1.010-1.025) Urine Protein 100 H (Neg-Trace) mg/dL Urine Glucose (UA) Normal (Normal) mg/dL Urine Ketones Negative (Negative) mg/dL Urine Blood Large H (Negative) Urine Nitrite Negative (Negative) Urine Bilirubin Negative (Negative) Urine Urobilinogen Normal (Normal) mg/dL Ur Leukocyte Esterase Negative (Negative) Urine Microscopic RBC 3-5 H (0-3) per hpf Urine Microscopic WBC 0-3 (0-3) per hpf Ur Squamous Epith Cells Many H (None-Few) per lpf Urine Bacteria None Seen (None-Few) per hpf Hyaline Casts None Seen (None-Few) per lpf Ur Culture Indicated? NO (NO) 12/24/16 Range/Units 11:28 WBC (4.3-11.1) K/mcL RBC (3.82-4.97) M/mcL Hgb (11.5-15.4) g/dL Hct (35.3-44.9) % MCV (83.0-100.0) fL MCH (28.0-33.3) pg MCHC (31.6-35.5) g/dL RDW (11.5-14.5) % Plt Count (140-400) K/mcL MPV (9.4-12.4) fL Immature Gran % (0-4) % Seg Neutrophils % % Lymphocytes % % Monocytes % % Eosinophils % % Basophils % % Neutrophils # (1.6-8.9) K/mcL Lymphocytes # (0.6-4.6) K/mcL Monocytes # (0.0-1.3) K/mcL Eosinophils # (0.0-0.6) K/mcL Basophils # (0.0-0.2) K/mcL Sodium (136-145) mEq/L Potassium (3.5-4.5) mEq/L Chloride (98-109) mEq/L Carbon Dioxide (19-29) mEq/L BUN (7-20) mg/dL Creatinine (0.57-1.11) mg/dL Est GFR ( Amer) (> 60) Est GFR (Non-Af Amer) (> 60) BUN/Creatinine Ratio (6-26) Glucose (70-99) mg/dL Calculated Osmolality (280-300) Lactic Acid 1.1 (0.5-2.2) mmol/L Calcium (8.6-10.8) mg/dL Total Bilirubin (0.2-1.2) mg/dL Direct Bilirubin (0.0-0.5) mg/dL AST (5-34) Units/L ALT (0-55) Units/L Alkaline Phosphatase (38-126) Units/L Troponin I (0-0.03) ng/mL B-Natriuretic Peptide (0-100) pg/mL Serum Total Protein (6.0-8.3) g/dL Albumin (3.5-5.0) g/dL Globulin (2.4-3.5) g/dL Albumin/Globulin Ratio (1.1-2.2) Lipase (8-78) Units/L Urine Color (Yellow) Urine Clarity (Clear) Urine pH (5.0-8.0) pH Units Ur Specific [place] (1.010-1.025) Urine Protein (Neg-Trace) mg/dL Urine Glucose (UA) (Normal) mg/dL Urine Ketones (Negative) mg/dL Urine Blood (Negative) Urine Nitrite (Negative) Urine Bilirubin (Negative) Urine Urobilinogen (Normal) mg/dL Ur Leukocyte Esterase (Negative) Urine Microscopic RBC (0-3) per hpf Urine Microscopic WBC (0-3) per hpf Ur Squamous Epith Cells (None-Few) per lpf Urine Bacteria (None-Few) per hpf Hyaline Casts (None-Few) per lpf Ur Culture Indicated? (NO) - Lab Data Lab results reviewed: Yes I reviewed the patient's lab results. Result diagrams: 12/24/16 08:23 12/24/16 08:23 Lab Results 12/24/16 12/24/16 12/24/16 Range/Units 08:23 08:23 08:23 WBC 4.7 (4.3-11.1) K/mcL RBC 3.83 (3.82-4.97) M/mcL Hgb 11.5 (11.5-15.4) g/dL Hct 36.6 (35.3-44.9) % MCV 95.6 (83.0-100.0) fL MCH 30.0 (28.0-33.3) pg MCHC 31.4 L (31.6-35.5) g/dL RDW 15.9 H (11.5-14.5) % Plt Count 117 L (140-400) K/mcL MPV 9.9 (9.4-12.4) fL Immature Gran % 0.2 (0-4) % Seg Neutrophils % 75.1 % Lymphocytes % 13.5 % Monocytes % 8.0 % Eosinophils % 2.6 % Basophils % 0.6 % Neutrophils # 3.5 (1.6-8.9) K/mcL Lymphocytes # 0.6 (0.6-4.6) K/mcL Monocytes # 0.4 (0.0-1.3) K/mcL Eosinophils # 0.1 (0.0-0.6) K/mcL Basophils # 0.0 (0.0-0.2) K/mcL Sodium 141 (136-145) mEq/L Potassium 3.5 (3.5-4.5) mEq/L Chloride 107 (98-109) mEq/L Carbon Dioxide 24 (19-29) mEq/L BUN 19 (7-20) mg/dL Creatinine 1.01 (0.57-1.11) mg/dL Est GFR ( Amer) > 60 (> 60) Est GFR (Non-Af Amer) 52 L (> 60) BUN/Creatinine Ratio 19 (6-26) Glucose 117 H (70-99) mg/dL Calculated Osmolality 295 (280-300) Lactic Acid (0.5-2.2) mmol/L Calcium 9.1 (8.6-10.8) mg/dL Total Bilirubin 1.8 H (0.2-1.2) mg/dL Direct Bilirubin 0.8 H (0.0-0.5) mg/dL AST 22 (5-34) Units/L ALT 12 (0-55) Units/L Alkaline Phosphatase 102 (38-126) Units/L Troponin I 0.03 (0-0.03) ng/mL B-Natriuretic Peptide (0-100) pg/mL Serum Total Protein 6.5 (6.0-8.3) g/dL Albumin 3.6 (3.5-5.0) g/dL Globulin 2.9 (2.4-3.5) g/dL Albumin/Globulin Ratio 1.2 (1.1-2.2) Lipase 19 (8-78) Units/L Urine Color (Yellow) Urine Clarity (Clear) Urine pH (5.0-8.0) pH Units Ur Specific [place] (1.010-1.025) Urine Protein (Neg-Trace) mg/dL Urine Glucose (UA) (Normal) mg/dL Urine Ketones (Negative) mg/dL Urine Blood (Negative) Urine Nitrite (Negative) Urine Bilirubin (Negative) Urine Urobilinogen (Normal) mg/dL Ur Leukocyte Esterase (Negative) Urine Microscopic RBC (0-3) per hpf Urine Microscopic WBC (0-3) per hpf Ur Squamous Epith Cells (None-Few) per lpf Urine Bacteria (None-Few) per hpf Hyaline Casts (None-Few) per lpf Ur Culture Indicated? (NO) 12/24/16 12/24/16 12/24/16 Range/Units 08:24 08:24 09:45 WBC (4.3-11.1) K/mcL RBC (3.82-4.97) M/mcL Hgb (11.5-15.4) g/dL Hct (35.3-44.9) % MCV (83.0-100.0) fL MCH (28.0-33.3) pg MCHC (31.6-35.5) g/dL RDW (11.5-14.5) % Plt Count (140-400) K/mcL MPV (9.4-12.4) fL Immature Gran % (0-4) % Seg Neutrophils % % Lymphocytes % % Monocytes % % Eosinophils % % Basophils % % Neutrophils # (1.6-8.9) K/mcL Lymphocytes # (0.6-4.6) K/mcL Monocytes # (0.0-1.3) K/mcL Eosinophils # (0.0-0.6) K/mcL Basophils # (0.0-0.2) K/mcL Sodium (136-145) mEq/L Potassium (3.5-4.5) mEq/L Chloride (98-109) mEq/L Carbon Dioxide (19-29) mEq/L BUN (7-20) mg/dL Creatinine (0.57-1.11) mg/dL Est GFR ( Amer) (> 60) Est GFR (Non-Af Amer) (> 60) BUN/Creatinine Ratio (6-26) Glucose (70-99) mg/dL Calculated Osmolality (280-300) Lactic Acid 0.9 (0.5-2.2) mmol/L Calcium (8.6-10.8) mg/dL Total Bilirubin (0.2-1.2) mg/dL Direct Bilirubin (0.0-0.5) mg/dL AST (5-34) Units/L ALT (0-55) Units/L Alkaline Phosphatase (38-126) Units/L Troponin I (0-0.03) ng/mL B-Natriuretic Peptide 1889 H (0-100) pg/mL Serum Total Protein (6.0-8.3) g/dL Albumin (3.5-5.0) g/dL Globulin (2.4-3.5) g/dL Albumin/Globulin Ratio (1.1-2.2) Lipase (8-78) Units/L Urine Color Yellow (Yellow) Urine Clarity Clear (Clear) Urine pH 6.0 (5.0-8.0) pH Units Ur Specific [place] 1.021 (1.010-1.025) Urine Protein 100 H (Neg-Trace) mg/dL Urine Glucose (UA) Normal (Normal) mg/dL Urine Ketones Negative (Negative) mg/dL Urine Blood Large H (Negative) Urine Nitrite Negative (Negative) Urine Bilirubin Negative (Negative) Urine Urobilinogen Normal (Normal) mg/dL Ur Leukocyte Esterase Negative (Negative) Urine Microscopic RBC 3-5 H (0-3) per hpf Urine Microscopic WBC 0-3 (0-3) per hpf Ur Squamous Epith Cells Many H (None-Few) per lpf Urine Bacteria None Seen (None-Few) per hpf Hyaline Casts None Seen (None-Few) per lpf Ur Culture Indicated? NO (NO) - Radiology Data Radiology results reviewed: Yes I reviewed the patient's radiology results. - EKG Data EKG attestation: Yes I reviewed and interpreted this EKG. EKG results narrative: Atrial fibrillation, ventricular rate 82, right bundle branch block, consistent with previous EKG from later this month, no evidence of acute ischemia. Attestation Statement - Attestation Attestation: I personally interviewed and examined this patient and my medical decision- making was reviewed with the PAIGE, Kathleen Brennan. I agree with the documented findings, disposition and treatment plan as described except to the extent set forth below. Patient is an 86-year-old white female who presents to the emergency department today with vague complaints of generalized weakness, dyspnea on exertion, abdominal bloating and discomfort, and lower extremity swelling. Patient states that these symptoms have been gradually worsening over the past week. She also mentions some weight loss she has been concerned about. Patient is stating "I am just not feeling right, and afraid because I was alone". Patient currently denies any form of chest pain pressure or heaviness, no actual abdominal pain, no fevers or chills, no diaphoresis, no flank pain or urinary symptoms. The triage note stated she was having lower leg pain, when I asked the patient about this she said that her legs and just been more swollen lately than what she is used to and that when she walks she feels a little bit of discomfort from the heaviness of the swelling. Patient currently denies any calf pain posterior knee pain or leg pain. Patient repeatedly complaining about how weak she is been in actually described without prompting that she cannot take more than 2 or 3 steps at home without having to stop and sit down due to the shortness of breath with ambulation. Denies any form of chest pain or pressure during these episodes. Physical exam findings as documented. Patient is a known vasculopath and has had according to the records prior aortobifemoral bypass, and has known aortic aneurysms. I my assessment her lower extremities are neurovascularly intact with 2+ distal pulses equal bilaterally in the posterior tibial and dorsalis pedis pulses. Patient has no pulsatile abdominal mass palpable on exam and no peritoneal signs noted. Patient's EKG showed no acute ST or T-wave changes. Patient was placed on a landscape drafter, continuous pulse ox, IV labs were drawn and patient had a portable chest as well as CT abdomen and pelvis due to vague abdominal complaints and her prior history of aortic aneurysms. Patient hypertensive on arrival. Unclear if patient had appropriate cuff size in triage but repeat blood pressure here without medical treatment showed her to be normotensive. Patient's labs overall are unremarkable with the exception of an elevated BNP. Patient's chest x-ray shows atelectasis versus left lower lobe infiltrate read by the radiologist. This could be contributing to some generalized weakness for the patient so we did go ahead and cover the patient with IV antibiotics. Patient's troponin was negative. Patient's CT abdomen and pelvis showed no acute process, stable aortic changes. We will admit the patient for further evaluation of dyspnea on exertion and generalized weakness. Have initiated IV antibiotics for left lower lobe pneumonia. Patient with no signs of respiratory distress here in the ED. Discussed case with hospitalist who accepted the patient for admission for further evaluation and treatment area
[2016-12-24 08:31] LABS: Basophils % 0.6 %; Eosinophils # 0.1 K/mcL (0.0-0.6); Eosinophils % 2.6 %; Hematocrit 36.6 % (35.3-44.9); Hemoglobin 11.5 g/dL (11.5-15.4); Immature Granulocytes % 0.2 % (0-4); Lymphocytes # 0.6 K/mcL (0.6-4.6); Lymphocytes % 13.5 %; Mean Corpuscular HGB Conc 31.4 g/dL (31.6-35.5); Mean Corpuscular Volume 95.6 fL (83.0-100.0); Mean Platelet Volume 9.9 fL (9.4-12.4); Monocytes # 0.4 K/mcL (0.0-1.3); Neutrophils # 3.5 K/mcL (1.6-8.9); Platelet Count 117 K/mcL (140-400); Red Blood Count 3.83 M/mcL (3.82-4.97); Red Cell Distribution Width 15.9 % (11.5-14.5); Segmented Neutrophils % 75.1 %
[2016-12-24 08:44] LABS: BUN/Creatinine Ratio 19 (6-26); Blood Urea Nitrogen 19 mg/dL (7-20); Carbon Dioxide 24 mEq/L (19-29); Chloride 107 mEq/L (98-109); Glucose 117 mg/dL (70-99); Potassium 3.5 mEq/L (3.5-4.5); Sodium 141 mEq/L (136-145); eGFR For African Americans > 60 (> 60); eGFR For Non-African Americans 52 (> 60)
[2016-12-24 08:45] LABS: Alanine Aminotransferase 12 Units/L (0-55); Albumin 3.6 g/dL (3.5-5.0); Albumin/Globulin Ratio 1.2 (1.1-2.2); Alkaline Phosphatase 102 Units/L (38-126); Aspartate Amino Transferase 22 Units/L (5-34); Bilirubin,Total 1.8 mg/dL (0.2-1.2); Calcium 9.1 mg/dL (8.6-10.8); Globulin 2.9 g/dL (2.4-3.5); Osmolality,Calculated 295 (280-300); Total Protein 6.5 g/dL (6.0-8.3)
[2016-12-24 09:23] LABS: Bilirubin,Direct 0.8 mg/dL (0.0-0.5); Lipase 19 Units/L (8-78)
[2016-12-24 10:13] LABS: Bilirubin,Urine Negative (Negative); Blood,Urine Large (Negative); Clarity,Urine Clear (Clear); Color,Urine Yellow (Yellow); Glucose,Urine (UA) Normal (Normal); Ketones,Urine Negative (Negative); Leukocyte Esterase,Urine Negative (Negative); Nitrite,Urine Negative (Negative); Protein,Urine 100 mg/dL (Neg-Trace); Specific Gravity,Urine 1.021 (1.010-1.025); Urobilinogen,Urine Normal (Normal)
[2016-12-24 10:16] LABS: Bacteria,Urine None Seen per hpf (None-Few); Hyaline Casts,Urine None Seen per lpf (None-Few); Squamous Epithelial Cell,Urine Many per lpf (None-Few); WBC,Urine 0-3 per hpf (0-3)
[2016-12-24] MEDS ORDERED: Ondansetron 4 MG/2 ML VIAL IVP PRN (13:14)
[2016-12-24] MEDS ORDERED: Naloxone 0.4 MG/ML INJ IVP PRN (13:14)
--- NOTE | 2016-12-24 13:31 | Internal Med History&Physical ---
<EverardoanuradhajulioOlu lazar - Last Filed: 12/24/16 15:05> Date of Encounter: 12/24/16 Time of Encounter: 12:30 Assessment and Plan (1) Acute CHF (congestive heart failure) Current visit: Yes Status: Acute Patient presents with history of congestive heart failure and acute CHF symptoms during this admission. Patient reports having bilateral pedal edema which has since resolved since taking her Lasix. Patient currently has minor cough but lungs are clear bilaterally on examination. Continue patient's Lasix. Continuous cardiac telemetry and supplemental O2 ordered. Monitor I&O and daily weight. Qualifiers: Congestive heart failure type: unspecified congestive heart failure type Qualified Code(s): I50.9 - Heart failure, unspecified (2) SOB (shortness of breath) Current visit: Yes Status: Acute Patient presents with shortness of breath with exertion. Patient states she is currently not on home oxygen. She states the symptoms have been occurring for approximately 1 week. Blood and urine cultures ordered for possible infection based on CXR and possible UTI. Will consider antibiotic coverage based on results. (3) Left breast mass Current visit: Yes Status: Chronic Patient presents with sizable left breast mass near axilla. Patient reports mass was found with mammography. Patient states she will not seek treatment due to seeing her daughter go through breast cancer treatment. Palliative care consult ordered and discussed with patient, son, and Yesenia from Palliative Care. (4) Anxiety Current visit: Yes Status: Chronic Patient presents with history of chronic anxiety and depression. Patient became tearful during examination when describing feelings of loneliness and living alone. Continue Serax. Will add Remeron for insomnia. (5) DVT prophylaxis Current visit: No Status: Acute Patient placed on DVT prophylaxis due to current admission status and risk factors. Heparin 5,000 units SQ Q8 ordered. Internal Medicine - H&P: HPI Chief complaint: SOB/Weakness Admitted From: Emergency Dept Plans for Post Hospital Care: Home History of present illness: Mrs. Saenz is a 86 year old female presents from the ED with chief complaint of shortness of breath with exertion, generalized weakness, abdominal discomfort and swelling, and bilateral leg pain. Patient states she simply does not feel right and has felt this way for the past week or so. She also reports becoming extremely short of breath when walking and also experiencing lower abdominal pain and abdominal swelling with walking. blood cultures ordered and ED and urine culture ordered to rule out possible UTI. Mrs. Saenz states she also has aching in her legs bilaterally and cannot get comfortable. She states she currently has a cyst on one ovary, 2 aortic aneurysms, and a lump in her left breast located in the axilla for which she is not seeking treatment due to seeing her daughter's difficulties with breast cancer treatments. He should also reports difficulty sleeping, most likely due to anxiety of which she has a history of. Patient denies chest pain, recent illness, fever, chills, nausea, vomiting, diarrhea, unusual bleeding, or headaches. Mrs. Saenz has a history of aortic aneurysm, atrial fibrillation , cancer, CHF, COPD, CAD, HLD, HTN, AR, TIA, and triple bypass. Surgical history includes appendectomy, CABG, and aortic aneurysm repair. Patient is at moderate risk due to risk factors and will be placed as observation status with continuous cardiac telemetry, supplemental O2, palliative care consult, and continuation of her medications. Time spent with patient greater than 40 minutes. Past Med Surg Social Fam HX - Past Medical History Source: patient Medical history: aortic aneurysm, atrial fibrillation, cancer, CHF, COPD, coronary artery disease, hyperlipidemia, hypertension, myocardial infarction, TIA Psychiatric history: anxiety - Past Surgical History Surgical History: appendectomy, coronary bypass (CABG), other (Aortic aneurysm repair) - Social History Smoking Status: Former smoker Smokeless Tobacco Status: No Alcohol use: none Drug use: none Occupational status: retired Current living situation: Home - Independent Activity Level: Uses cane/walker Recent Out of Country Travel Within the Last 8 Weeks: No Exposure or Possible Exposure to Illness During Travel: No - Family History Father Adopted: No Race: Family Member Ethnicity: Non- Living Status: Age at : 67 Hx Family Cardiac Disorders: Yes (HD) Hx Family Respiratory Disorders: Yes (Emphysema) Mother Race: Family Member Ethnicity: Non- Living Status: Age at : 95 Cause of : "Old age" Hx Family Medical Disorders: No Brother Race: Family Member Ethnicity: Non- Living Status: Age at : 70 Cause of : Throat cancer Hx Family Cancer: Yes (Throat) Internal Medicine - H&P: Meds Ibuprofen [Motrin] 400 mg PO BID PRN 12/24/16 [History] Metoprolol Tartrate [Lopressor] 50 mg PO BID 12/24/16 [History] Oxazepam [Serax] 15 mg PO QID 12/24/16 [History] Allergies morphine Adverse Reaction (Severe, Verified 07/27/16 12:55) severe headache/questionable seizure nitroglycerin Adverse Reaction (Verified 07/22/16 03:01) Headache All Systems PM: A 10-system review of systems was performed and is negative for pertinent findings except as documented above in the HPI. - Constitutional Constitutional: no chills, no fever(s), no night sweats - EENT Eyes: no change in vision, no discharge, no pain, no photophobia Ears: no ear discharge, no ear pain, no tinnitus Nose, mouth and throat: no dysphagia, no nasal discharge, no neck pain, no sore throat - Breasts Breasts: as per HPI - Cardiovascular Cardiovascular ROS IM: as per HPI, dyspnea on exertion, irregular heart rhythm, no chest pain, no diaphoresis, no dyspnea, no lightheadedness, no palpitations, no syncope - Respiratory Respiratory: as per HPI, cough, dyspnea on exertion, no dyspnea, no wheezing, no excessive phlegm production - Gastrointestinal Gastrointestinal: as per HPI, abdominal pain, no diarrhea, no hematemesis, no hematochezia, no melena, no nausea, no vomiting - Genitourinary Genitourinary: no change in urinary stream, no dysuria, no flank pain, no hematuria Menstruation: as per HPI, post menopausal - Musculoskeletal Musculoskeletal ROS IM: as per HPI, other (Bilateral leg pain, worse at night), no numbness, no tingling - Integumentary Integumentary IM: no rash, no unusual bruising - Neurological Neurological ROS: no confusion, no convulsions, no focal weakness, no numbness, no tingling, no tremor(s) - Psychiatric Psychiatric: as per HPI, anxiety, depression - Endocrine Endocrine IM: as per HPI - Hematologic/Lymphatic Hematologic/Lymphatic: no easy bruising - Allergic/Immunologic Allergic/Immunologic: as per HPI - Constitutional Vitals: Temp Pulse Resp BP Pulse Ox 97.8 F 72 20 200/126 95 12/24/16 06:35 12/24/16 06:35 12/24/16 06:35 12/24/16 06:35 12/24/16 06:35 General appearance: Present: cooperative, A&O X 3, pleasant, no acute distress, underweight, answers questions appropriately - Head Head exam: Present: atraumatic, normocephalic - Eye Eye exam: Present: PERRL, conjuntiva pink, sclera anicteric Pupils: Present: PERRL - ENT ENT exam: Present: normal exam, normal external ear exam - Neck Neck exam general surgery: Present: supple, trachea midline. Absent: lymphadenopathy - Respiratory Respiratory exam: Present: CTAB. Absent: accessory muscle use, rales, rhonchi, wheezes - Cardiovascular Cardiovascular exam: Present: irregular rhythm - GI/Abdominal GI/Abdominal exam: Present: normal bowel sounds, soft, no peritoneal signs. Absent: distended, tenderness - Rectal Rectal exam: Present: deferred - Additional comments: exam deferred. - Extremities Exam Extremities exam: Present: warm, radial pulses palpable and symetrical. Absent : calf tenderness, cyanotic, pedal edema - Back Exam Back exam: Present: normal inspection - Neurological Exam Neurological exam: Present: CN II-XII intact, oriented X3, no focal deficits. Absent: pronater drift, facial droop, speech deficit - Psychiatric Psychiatric exam: Present: normal affect, normal mood - Skin Skin exam: Present: dry, intact Internal Med - H&P Results - Labs CBC & Chem 7: 12/24/16 08:23 12/24/16 08:23 - EKG Data Prior EKG available for review: yes When compared to previous EKG: there is no significant change EKG comments: 12/24/16 13:46 EKG dated 12/05/16 shows atrial fibrillation with right bundle branch block and left anterior fascicular block. Moderate voltage criteria for LVH, consider normal variant. Inferior myocardial infarction, probably old. Anteroseptal myocardial infarction of indeterminate age. EKG dated 12/24/16 shows atrial fibrillation with right bundle branch block and left anterior fascicular block. Moderate voltage criteria for LVH, consider normal variant. Inferior myocardial infarction, probably old. Anteroseptal myocardial infarction of indeterminate age. - Diagnostic Studies Chest x-ray Additional comments: Impressions Chest X-Ray 12/24/16 07:13 IMPRESSION: Left lower lobe consolidation with volume loss, atelectasis versus pneumonia D/ / Shayne Bucio MD / Shayne Bucio MD Interpreting Provider: Shayne Bucio MD CT scan - abdomen Additional comments: Impressions Abdomen/Pelvis CT 12/24/16 09:45 IMPRESSION: No acute process. Small pleural effusions noted incidentally as well as abdominal aortic aneurysm and distal descending thoracic aortic aneurysm. RECOMMENDATIONS: Patient has had an aortobifemoral bypass as noted. Therefore the following recommendations are purely for reference. Managing Abdominal Aortic Aneurysms 2.6-2.9 cm: 5 year follow up. 3.0-3.4 cm: 3 year follow up 3.5-3.9 cm: 1 year follow up. 4.0-4.4 cm: 1 year follow up. Recommend vascular consultation. 4.5-5.4 cm: 6 month follow up. Recommend vascular consultation. Greater than or equal to 5.5 cm: Referral to vascular surgeon. Reference: Ulices et al. The care of patients with an abdominal aortic aneurysm: The Society of Vascular Surgery practice guidelines. Journal of Vascular Surgery. Vol 50, Number 85. Maureen et al. Managing Incidental Findings on Abdominal and Pelvic CT and MRI, Part 2: White Paper of the ACR Incidental Findings Committee II on Vascular Findings. J Am Herbert Radiol 2013;10:789-794 D/ / Donato Fox MD / Donato Fox MD Interpreting Provider: Donato Fox MD <Raul Anaya - Last Filed: 12/24/16 16:33> Date of Encounter: 12/24/16 Time of Encounter: 13:00 Internal Medicine - H&P: HPI History of present illness: Ms. Saenz is a 86 year old female All Systems PM: A 10-system review of systems was performed and is negative for pertinent findings except as documented above in the HPI. - Constitutional Vitals: Temp Pulse Resp BP Pulse Ox 97.6 F 82 16 176/88 91 12/24/16 15:20 12/24/16 15:20 12/24/16 15:20 12/24/16 15:20 12/24/16 15:20 Internal Med - H&P Results - Labs CBC & Chem 7: 12/24/16 08:23 12/24/16 08:23 - Attending Attestation I examined this patient and my medical decision-making was reviewed with the nurse practitioner. I agree with the documented history of present illness, review of systems, past medical, surgical social and family histories and examination findings, disposition and treatment plan as described above except to any changes set forth below. 86-year-old female patient with history of aortic aneurysm atrial fibrillation, CHF, CAD, COPD, hypertension and hyperlipidemia presenting to the ER with complaints of shortness of breath especially with exertion, generalized weakness and bilateral lower extremity swelling and abdominal pain swelling going on for past week or so. She had called EMS as her symptoms do not seem to improve. On examination, patient does not have any significant pedal edema at this time, S1 and S2 are normal, there is ejection systolic murmur, respiratory examination shows normal breath sounds with decreased breath sounds at bases. Chest x-ray shows possible atelectasis or consolidation in the left lower lobe. CT scan of the abdomen and pelvis does not show any consolidation in the lung bases bibasilar pleural effusions and aortic aneurysm which is unchanged from previous. Acute exacerbation of systolic congestive heart failure: We will treat with IV Lasix for now and then switched to oral Lasix from tomorrow. Monitor vital signs closely. Moderate risk for complications. 2-D echocardiogram from July shows EF of 30-35%. Anxiety and headache: Continue home medications and treat headache symptomatically.
[2016-12-24] MEDS ORDERED: Furosemide 20 MG/2 ML VIAL IVP ONE (16:28)
[2016-12-24] MEDS: Acetaminophen 325 MG TABLET PO PRN (18:21)
[2016-12-24] MEDS ORDERED: Mirtazapine 15 MG TABLET PO SCH (21:00)
[2016-12-25 03:27] LABS: INR 1.2; Prothrombin Time 13.4 Seconds (9.4-12.1)
[2016-12-25 03:31] LABS: Activated Partial Thrombo Time 25.2 Seconds (26.0-36.0)
[2016-12-25 03:37] LABS: Basophils % 0.7 %; Eosinophils # 0.1 K/mcL (0.0-0.6); Eosinophils % 3.2 %; Hematocrit 32.5 % (35.3-44.9); Hemoglobin 10.5 g/dL (11.5-15.4); Immature Granulocytes % 0.5 % (0-4); Lymphocytes # 0.6 K/mcL (0.6-4.6); Lymphocytes % 15.8 %; Mean Corpuscular HGB Conc 32.3 g/dL (31.6-35.5); Mean Corpuscular Hemoglobin 31.3 pg (28.0-33.3); Mean Platelet Volume 10.6 fL (9.4-12.4); Monocytes # 0.5 K/mcL (0.0-1.3); Monocytes % 12.1 %; Neutrophils # 2.8 K/mcL (1.6-8.9); Platelet Count 100 K/mcL (140-400); Red Blood Count 3.35 M/mcL (3.82-4.97); Segmented Neutrophils % 67.7 %
[2016-12-25 03:41] LABS: Albumin 3.3 g/dL (3.5-5.0); Albumin/Globulin Ratio 1.3 (1.1-2.2); Bilirubin,Total 2.1 mg/dL (0.2-1.2); Calcium 8.5 mg/dL (8.6-10.8); Chol/HDL Ratio 4.9 (0-4.9); Globulin 2.5 g/dL (2.4-3.5); Potassium 3.2 mEq/L (3.5-4.5); Total Protein 5.8 g/dL (6.0-8.3)
[2016-12-25 06:54] VITALS: BP 151/93
[2016-12-25] MEDS: Acetaminophen 325 MG TABLET PO PRN (07:51)
[2016-12-25] MEDS ORDERED: Pantoprazole 40 MG VIAL IVP SCH (09:00)
--- NOTE | 2016-12-25 09:05 | Discharge Summary ---
Date of Encounter: 12/25/16 Time of Encounter: 08:10 - Discharge Diagnosis (1) CHF (congestive heart failure) Priority: Primary Status: Chronic Comments: She has history of congestive heart failure. She presents with dyspnea on exertion, primarily in the mornings for the last 6 months to one year. She is in no distress. She has no peripheral edema. I asked her what changed about her condition and that made her come to the emergency room. She says there was no change she is just unsure what to do and she lives alone. Her lungs are clear, there is no wheezing, stridor, rales, or rhonchi. He is maintaining her oxygen saturation greater than 92% on room air. Patient had an echocardiogram in July of this year that showed LVEF of 30-35% , normal LV chamber size. Severe global and segmental left ventricular systolic dysfunction. Indeterminate diastolic dysfunction. Atypical septal motion consistent with bundle branch block. Mildly dilated right ventricle with normal appearing function. Mild mitral regurgitation, severe tricuspid regurgitation, severe pulmonary hypertension. Overall, findings likely unchanged from prior report dated October,. Chest x-ray showed heart size and mediastinal contours are unchanged giving kyphotic projection. Persistent cardiopericardial enlargement. Suspect left lower lobe consolidation with volume loss, atelectasis versus pneumonia. EKG showed A. fib with right bundle branch block and left anterior fascicular block. Inferior [place] probably old. Anteroseptal myocardial infarction of indeterminate age. Patient is pain-free. She is in no distress. Labs are within normal limits. She has no white count, fever, or abnormal vital signs. Patient has chronically elevated BNP. Qualifiers: Congestive heart failure type: systolic Congestive heart failure chronicity : chronic Qualified Code(s): I50.22 - Chronic systolic (congestive) heart failure (2) Headache Status: Acute Comments: Patient reports chronic frontal headaches. She says that she has had them for years and that Tylenol helps. She refuses workup or CT. She says she does not get them daily, they are not debilitating, there is no nausea, vomiting, diarrhea, dizziness, photophobia, or phonophobia. He denies vision changes, or problems with her speech. Qualifiers: Headache type: unspecified Headache chronicity pattern: chronic headache Intractability: not intractable Qualified Code(s): R51 - Headache (3) Anxiety Status: Chronic (4) DVT prophylaxis Status: Acute (5) Left breast mass Status: Chronic (6) SOB (shortness of breath) Status: Acute - Discharge Medications Home Medications: Ibuprofen [Motrin] 400 mg PO BID PRN 12/24/16 [History] Metoprolol Tartrate [Lopressor] 50 mg PO BID 12/24/16 [History] Oxazepam [Serax] 15 mg PO QID 12/24/16 [History] Allergies/Adverse Reactions: Allergies morphine Adverse Reaction (Severe, Verified 07/27/16 12:55) severe headache/questionable seizure nitroglycerin Adverse Reaction (Verified 07/22/16 03:01) Headache Date of admission: 12/24/16 11:20 Primary care physician: PCP NO Consults: 12/24/16 13:31 Consult to Palliative Care [CONS] Routine Comment: Consulting Provider: Palliative Care Vera Reason for Consult: Patient had hospice care previously but was dropped d/t coming to the hospital/doctor. Patient has been diagnosed with sizeable lump in left breast near axilla for which she is not seeking tx due to seeing what her daughter went through with breast cancer tx. Call Completed: Yes Discharging clinician: Liliana Lewis Anticipated date of discharge: 12/25/16 - Patient Status Condition: Good - Discharge Instructions Follow Up With: NO,PCP [Primary Care Provider] - Hospital course: Ms. Saenz is a 86 year old female - Time Spent with Patient Total time spent providing and/or coordinating discharge services: - Constitutional Vitals: Temp Pulse Resp BP Pulse Ox 97.7 F 71 14 151/93 92 12/25/16 06:51 12/25/16 06:51 12/25/16 06:51 12/25/16 06:51 12/25/16 06:51 General appearance: Present: cooperative, A&O X 3, pleasant, no acute distress, underweight, answers questions appropriately
--- NOTE | 2016-12-25 09:26 | Internal Med Progress Note ---
Date of Encounter: 12/25/16 Time of Encounter: 08:10 - Assessment and plan (1) CHF (congestive heart failure) Current Visit: No Status: Chronic Assessment and plan: Pt has history of congestive heart failure. She presents with dyspnea on exertion, primarily in the mornings for the last 6 months to one year. She is in no distress. She has no peripheral edema. I asked her what changed about her condition and that made her come to the emergency room. She says there was no change she is just unsure what to do and she lives alone. Her lungs are clear, there is no wheezing, stridor, rales, or rhonchi. He is maintaining her oxygen saturation greater than 92% on room air. Patient had an echocardiogram in July of this year that showed LVEF of 30-35% , normal LV chamber size. Severe global and segmental left ventricular systolic dysfunction. Indeterminate diastolic dysfunction. Atypical septal motion consistent with bundle branch block. Mildly dilated right ventricle with normal appearing function. Mild mitral regurgitation, severe tricuspid regurgitation, severe pulmonary hypertension. Overall, findings likely unchanged from prior report dated October,. Chest x-ray showed heart size and mediastinal contours are unchanged giving kyphotic projection. Persistent cardiopericardial enlargement. Suspect left lower lobe consolidation with volume loss, atelectasis versus pneumonia. EKG showed A. fib with right bundle branch block and left anterior fascicular block. Inferior [place] probably old. Anteroseptal myocardial infarction of indeterminate age. Patient is pain-free. She is in no distress. Labs are within normal limits. She has no white count, fever, or abnormal vital signs. Patient has chronically elevated BNP, however, it is now above her elevated baseline. I had originally discussed with patient staying, however, she wants to go home. She says if she is going to she wants to at home. I did try to explain to her that that is not eminent. She says that she has been on hospice for her congestive heart failure in the past. She is resistant to home health, assisted living home independent living, rehabilitation. He has refused a cardiology consult. She is going to sign out AMA. Qualifiers: Congestive heart failure type: systolic Congestive heart failure chronicity : chronic Qualified Code(s): I50.22 - Chronic systolic (congestive) heart failure (2) Headache Current Visit: Yes Status: Acute Assessment and plan: Patient appears to have chronic headaches. She has migraines listed as a history. She has a frontal headache. There is no photophobia, phonophobia, debilitation with headache, headaches do not interrupt her daily life, there are no vision changes, nausea, vomiting, dizziness, or speech changes. She says that she normally takes Tylenol for them and if she gets up and moves around she feels better and they resolve. She refuses any kind of workup or head CT. Qualifiers: Headache type: unspecified Headache chronicity pattern: chronic headache Intractability: not intractable Qualified Code(s): R51 - Headache (3) Anxiety Current Visit: Yes Status: Chronic Assessment and plan: Chronic. Continue home medications. (4) DVT prophylaxis Current Visit: No Status: Acute Assessment and plan: Heparin subcutaneous. (5) Left breast mass Current Visit: Yes Status: Chronic Assessment and plan: Patient states that a left breast mass was found with mammography. She says she does not want to do anything with it because she is too old and her daughter recently had breast cancer she does not want to go through that. (6) SOB (shortness of breath) Current Visit: Yes Status: Chronic Assessment and plan: Patient reports shortness of breath that is chronic. She has dyspnea on exertion in the morning, does seem to improve during the day. She said it is been worse for the last 6 months to year and denies any change in condition recently, she just said that she was unsure what to do. She is in no distress, and she is not requiring supplemental oxygen. Obtaining adequate oxygen sats on room air. Her lungs are clear and diminished throughout. - Time Spent With Patient less than 15 minutes - Subjective Interval history: Patient was seen and assessed about 810 this morning. She is alert and oriented. She was resistant to any kind of further workup or treatment. She does not want a CT for her frequent headaches, she is refusing a cardiology consult. She does not want home health for social services to visit. She does not want assisted living or independent living or home health. She is ambulatory, and she states that she lives at home alone and does not require any assistance with anything. - Constitutional Vitals: Temp Pulse Resp BP Pulse Ox 97.7 F 71 14 151/93 92 12/25/16 06:51 12/25/16 06:51 12/25/16 06:51 12/25/16 06:51 12/25/16 06:51 General appearance: Present: cooperative, A&O X 3, pleasant, no acute distress, underweight, answers questions appropriately - Head Head exam: Present: normal inspection - Eye Eye exam: Present: normal appearance, conjuntiva pink - ENT ENT exam: Present: mucous membranes moist, normal exam, normal external ear exam - Neck Neck exam general surgery: Absent: lymphadenopathy, tenderness - Respiratory Respiratory exam: Present: decreased breath sounds, CTAB. Absent: accessory muscle use, rales, respiratory distress, rhonchi, stridor, wheezes - Cardiovascular Cardiovascular exam: Present: RRR, +S1, +S2. Absent: diastolic murmur, gallop, systolic murmur - GI/Abdominal GI/Abdominal exam: Present: normal bowel sounds, soft. Absent: hepatomegaly, tenderness - Extremities Exam Extremities exam: Present: normal capillary refill, warm. Absent: pedal edema, tenderness, radial pulses palpable and symetrical - Neurological Exam Neurological exam: Present: alert - Skin Skin exam: Present: dry, normal color, warm Internal Medicine: Result - Labs CBC & Chem 7: 12/25/16 02:28 12/25/16 02:28 Labs: Short CBC 12/25/16 Range/Units 02:28 WBC 4.1 L (4.3-11.1) K/mcL Hgb 10.5 L (11.5-15.4) g/dL Hct 32.5 L (35.3-44.9) % Plt Count 100 L (140-400) K/mcL Neutrophils # 2.8 (1.6-8.9) K/mcL BMP 12/25/16 02:28 Sodium 141 Potassium 3.2 L Chloride 104 Carbon Dioxide 26 BUN 18 Creatinine 1.09 Glucose 111 H Calcium 8.5 L Liver Function 12/25/16 Range/Units 02:28 Total Bilirubin 2.1 H (0.2-1.2) mg/dL AST 22 (5-34) Units/L ALT 12 (0-55) Units/L Alkaline Phosphatase 92 (38-126) Units/L Albumin 3.3 L (3.5-5.0) g/dL - ABG Interpretation ABG results: PT/INR, D-dimer PT 13.4 Seconds (9.4-12.1) H 12/25/16 02:28 Consult Discharge Plan - Plan Referrals: NO,PCP [Primary Care Provider] -
--- NOTE | 2016-12-25 12:01 | Event Note ---
Date of Encounter: 12/25/16 Time of Encounter: 11:15 Patient admitted from home where she was enrolled in hospice care and developed fluid overload and called the EMS to be brought to the hospital. Patient with left breasts mass but is refusing any treatment for it. Patient refuses to accept HH or re-enroll in hospice services. Patient requesting to sign-out AMA and doesn't desire to talk about illness. Patient is Full Code and lives alone and understands that is signing out against medical advise. Case discussed with Hospitalist KG Lewis. Palliative consult canceled.
--- NOTE | 2016-12-25 14:30 | Electrocardiograph Report ---
[address] [place] [address] Test Date: 2016-12-24 Pat Name: Beverley Saenz Department: 105 Room: 3B12 Gender: F Clip Coater: : [id number] Requested By: Miguel Brennan Order Number: [id number] Reading MD: Megan Rey Measurements Intervals [place] Rate: 82 P: OR: 0 QRS: -55 QRSD: 150 T: 21 QT: 414 QTc: 452 Interpretive Statements ATRIAL FIBRILLATION RIGHT BUNDLE BRANCH BLOCK LEFT ANTERIOR FASCICULAR BLOCK MODERATE VOLTAGE CRITERIA FOR LVH INFERIOR MYOCARDIAL INFARCTION, PROBABLY OLD ANTEROLATERAL MYOCARDIAL INFARCTION, PROBABLY OLD Electronically Signed On 12-25-2016 14:28:31 EDT by Megan Rey
== END 2016-12-25 11:05 | disposition left against medical advice (07) ==
LOC: EMEROO 06:31 → 3BNU 06:31
PROVIDERS: ADMIT Internal Medicine; ATTEND Registered Nurse

== ENCOUNTER 2016-12-28 04:21 | Observation (INO) ==
[2016-12-28] MEDS ORDERED: Aspirin 81 MG TAB.CHEW PO ONE (05:02)
[2016-12-28] MEDS ORDERED: 0.9 % Sodium Chloride 500 ML IVC ONE (05:02)
--- NOTE | 2016-12-28 05:07 | Emergency Department Note ---
Disposition Clinical Impression: HAP (hospital-acquired pneumonia), Hematuria CHF exacerbation Qualifiers: Congestive heart failure type: unspecified congestive heart failure type Qualified Code(s): I50.9 - Heart failure, unspecified Disposition: Admitted As Inpatient Condition: Fair Time of Disposition: 06:00 Chest Pain HPI - General Chief Complaint: ED Abdominal Pain Stated Complaint: upper abd pain/SOB Time Seen by Provider: 12/28/16 04:35 Source: patient Mode of arrival: ambulatory Limitations: no limitations Vital Signs Reviewed: Yes Nursing Notes Reviewed: Yes - History of Present Illness Pt complaint: chest pain Onset (ago): unknown Duration: gradually worsening Onset: during rest Pain Location: substernal, left chest, right chest Severity: moderate, severe Severity scale (1-10): 8 Quality: tightness, heaviness Pain Radiation: none Improves with: nothing Associated symptoms: Reports: nausea, diaphoresis (at night ), dyspnea, cough, leg swelling. Denies: sense of impending doom, fever Treatments prior to arrival chest pain: none - Related Data Home Medications Medication Instructions Recorded Confirmed Ibuprofen [Motrin] 400 mg PO BID PRN 12/24/16 12/28/16 Metoprolol Tartrate [Lopressor] 50 mg PO BID 12/24/16 12/28/16 Oxazepam [Serax] 15 mg PO QID 12/24/16 12/28/16 Allergies Allergy/AdvReac Type Severity Reaction Status Date / Time morphine AdvReac Severe severe Verified 12/28/16 04:27 headache/questionable seizure nitroglycerin AdvReac Headache Verified 12/28/16 04:27 All systems ED: reviewed and negative except as stated. Constitutional: Denies: fever, chills, weakness, weight change Eyes: Denies: eye pain, eye discharge, vision change ENT ED: Denies: ear pain, throat pain, dental pain, hearing loss, epistaxis, congestion, dysphagia Cardiovascular: Reports: chest pain, dyspnea on exertion Respiratory: Reports: cough Gastrointestinal: Reports: abdominal pain, nausea. Denies: vomiting, diarrhea, constipation, hematemesis, melena, hematochezia Genitourinary: Denies: dysuria, frequency, hematuria, discharge Musculoskeletal: Denies: back pain, neck pain, arthralgia, myalgia Integumentary: Denies: rash, abrasion, lesions Neurological: Denies: headache, weakness, numbness, paresthesias, confusion, abnormal gait, vertigo Chest Pain PMH - Past Medical History Medical history: Reports: aortic aneurysm, atrial fibrillation, cancer, CHF, COPD, coronary artery disease, hyperlipidemia, hypertension, myocardial infarction, TIA Surgical history: Reports: appendectomy, coronary bypass (CABG) Psychiatric history: Reports: anxiety - Social History Smoking Status: Former smoker Alcohol use: Reports: none Drug use: Reports: none Physical Exam - General Limitations: no limitations General appearance: alert, in no apparent distress - Head Head exam: atraumatic, normocephalic, normal inspection - Eye Eye exam: Present: normal appearance, PERRL, EOMI. Absent: scleral icterus, conjunctival injection, nystagmus - ENT ENT exam: normal exam, normal oropharynx, mucous membranes moist, mucous membranes dry, TM's normal bilaterally - Neck Neck exam: Present: normal inspection, full ROM, trachea midline - Chest Chest inspection: Present: normal inspection, symmetric chest wall rise - Respiratory Respiratory exam: Present: normal lung sounds bilaterally - Cardiovascular Cardiovascular exam: Present: regular rate, normal rhythm, normal heart sounds, systolic murmur. Absent: JVD - Abdominal Exam Abdominal exam: Present: tenderness, distention, diminished bowel sounds. Absent: guarding, rebound Abdominal tenderness: Present: RUQ, LUQ, epigastrium - Extremities Exam Extremities exam: Present: normal inspection, full ROM. Absent: tenderness, pedal edema - Back Exam Back exam: Present: normal inspection, full ROM. Absent: tenderness - Neurological Exam Neurological exam: Present: alert, oriented X3, CN II-XII intact, normal gait, reflexes normal - Psychiatric Psychiatric exam: Present: normal affect, normal mood - Skin Skin exam: Present: warm, dry, intact, normal color Course Vital Signs Temperature 97.9 F 12/28/16 04:22 Pulse Rate 91 12/28/16 04:22 Respiratory Rate 20 12/28/16 04:22 Blood Pressure 138/98 12/28/16 04:22 O2 Sat by Pulse Oximetry 96 12/28/16 04:22 Temperature 97.5 F L 12/28/16 19:08 Pulse Rate 64 12/28/16 19:08 Respiratory Rate 18 12/28/16 19:08 Blood Pressure 135/78 12/28/16 19:08 O2 Sat by Pulse Oximetry 93 12/28/16 19:08 Oxygen Delivery Oxygen Delivery Nasal Cannula Chest Pain - Lab Data Result diagrams: 12/28/16 05:07 12/28/16 05:07 Lab Results 12/28/16 12/28/16 12/28/16 Range/Units 05:07 05:07 05:07 WBC 4.8 (4.3-11.1) K/mcL RBC 3.63 L (3.82-4.97) M/mcL Hgb 11.1 L (11.5-15.4) g/dL Hct 35.4 (35.3-44.9) % MCV 97.5 (83.0-100.0) fL MCH 30.6 (28.0-33.3) pg MCHC 31.4 L (31.6-35.5) g/dL RDW 16.1 H (11.5-14.5) % Plt Count 129 L (140-400) K/mcL MPV 11.1 (9.4-12.4) fL Immature Gran % 0.4 (0-4) % Seg Neutrophils % 74.9 % Lymphocytes % 13.2 % Monocytes % 8.6 % Eosinophils % 2.3 % Basophils % 0.6 % Neutrophils # 3.6 (1.6-8.9) K/mcL Lymphocytes # 0.6 (0.6-4.6) K/mcL Monocytes # 0.4 (0.0-1.3) K/mcL Eosinophils # 0.1 (0.0-0.6) K/mcL Basophils # 0.0 (0.0-0.2) K/mcL PT 12.7 H (9.4-12.1) Seconds INR 1.2 APTT 26.9 (26.0-36.0) Seconds Sodium (136-145) mEq/L Potassium (3.5-4.5) mEq/L Chloride (98-109) mEq/L Carbon Dioxide (19-29) mEq/L BUN (7-20) mg/dL Creatinine (0.57-1.11) mg/dL Est GFR ( Amer) (> 60) Est GFR (Non-Af Amer) (> 60) BUN/Creatinine Ratio (6-26) Glucose (70-99) mg/dL Calculated Osmolality (280-300) Calcium (8.6-10.8) mg/dL Troponin I (0-0.03) ng/mL B-Natriuretic Peptide 1713 H (0-100) pg/mL Urine Color (Yellow) Urine Clarity (Clear) Urine pH (5.0-8.0) pH Units Ur Specific [place] (1.010-1.025) Urine Protein (Neg-Trace) mg/dL Urine Glucose (UA) (Normal) mg/dL Urine Ketones (Negative) mg/dL Urine Blood (Negative) Urine Nitrite (Negative) Urine Bilirubin (Negative) Urine Urobilinogen (Normal) mg/dL Ur Leukocyte Esterase (Negative) Urine Microscopic RBC (0-3) per hpf Urine Microscopic WBC (0-3) per hpf Ur Squamous Epith Cells (None-Few) per lpf Urine Bacteria (None-Few) per hpf Hyaline Casts (None-Few) per lpf Ur Culture Indicated? (NO) 12/28/16 12/28/16 12/28/16 Range/Units 05:07 05:07 05:10 WBC (4.3-11.1) K/mcL RBC (3.82-4.97) M/mcL Hgb (11.5-15.4) g/dL Hct (35.3-44.9) % MCV (83.0-100.0) fL MCH (28.0-33.3) pg MCHC (31.6-35.5) g/dL RDW (11.5-14.5) % Plt Count (140-400) K/mcL MPV (9.4-12.4) fL Immature Gran % (0-4) % Seg Neutrophils % % Lymphocytes % % Monocytes % % Eosinophils % % Basophils % % Neutrophils # (1.6-8.9) K/mcL Lymphocytes # (0.6-4.6) K/mcL Monocytes # (0.0-1.3) K/mcL Eosinophils # (0.0-0.6) K/mcL Basophils # (0.0-0.2) K/mcL PT (9.4-12.1) Seconds INR APTT (26.0-36.0) Seconds Sodium 142 (136-145) mEq/L Potassium 3.8 (3.5-4.5) mEq/L Chloride 107 (98-109) mEq/L Carbon Dioxide 24 (19-29) mEq/L BUN 25 H (7-20) mg/dL Creatinine 1.03 (0.57-1.11) mg/dL Est GFR ( Amer) > 60 (> 60) Est GFR (Non-Af Amer) 51 L (> 60) BUN/Creatinine Ratio 24 (6-26) Glucose 143 H (70-99) mg/dL Calculated Osmolality 301 H (280-300) Calcium 9.1 (8.6-10.8) mg/dL Troponin I 0.03 (0-0.03) ng/mL B-Natriuretic Peptide (0-100) pg/mL Urine Color Yellow (Yellow) Urine Clarity Clear (Clear) Urine pH 6.0 (5.0-8.0) pH Units Ur Specific [place] 1.025 (1.010-1.025) Urine Protein 100 H (Neg-Trace) mg/dL Urine Glucose (UA) Normal (Normal) mg/dL Urine Ketones Negative (Negative) mg/dL Urine Blood Moderate H (Negative) Urine Nitrite Negative (Negative) Urine Bilirubin Negative (Negative) Urine Urobilinogen Normal (Normal) mg/dL Ur Leukocyte Esterase Negative (Negative) Urine Microscopic RBC 15-30 H (0-3) per hpf Urine Microscopic WBC 3-5 H (0-3) per hpf Ur Squamous Epith Cells Many H (None-Few) per lpf Urine Bacteria None Seen (None-Few) per hpf Hyaline Casts None Seen (None-Few) per lpf Ur Culture Indicated? NO (NO) Heart Score - Score History: Highly Suspicious EKG: Non Specific repolarisation Disturbance Age: Greater than 65 Risk Factors: Equal/Greater than 3 risk factor or history of atherosclerotic disease Troponin: Less than normal limit HEART Score Total: 7 Attestation Statement - Attestation Attestation: I, Mars Honeycutt, examined this patient and my medical decision-making was reviewed with the GROUP PRODUCT MANAGER/PA/Advanced Practice Nurse/Resident Physician. I agree with the documented findings, disposition and treatment plan as described except to the extent set forth below. 86-year-old female presents with concerns of chest pain and difficulty breathing. Patient states she feels like she has a pressure on her chest and has difficulty with minimal exertion. Patient denies associated nausea, vomiting, fevers, chills, abdominal pain, diarrhea. Patient reports night sweats daily. She reports 25 pounds of weight loss over the past year. Patient reports cardiac history with a history of CABG in the past. Initial EKG showed 77 with a right bundle-branch block, normal sinus rhythm with PACs however this poor baseline. Repeat EKG showed a rate of 78, right bundle branch block, normal sinus rhythm with PACs without evidence of STEMI. Initial troponin was negative. Chest x-ray shows possible pneumonia. Patient was started on HCAP antibiotics. She will be admitted to the hospital for further care and evaluation.
[2016-12-28 05:16] LABS: Basophils % 0.6 %; Eosinophils # 0.1 K/mcL (0.0-0.6); Eosinophils % 2.3 %; Hematocrit 35.4 % (35.3-44.9); Hemoglobin 11.1 g/dL (11.5-15.4); Immature Granulocytes % 0.4 % (0-4); Lymphocytes # 0.6 K/mcL (0.6-4.6); Lymphocytes % 13.2 %; Mean Corpuscular HGB Conc 31.4 g/dL (31.6-35.5); Mean Corpuscular Hemoglobin 30.6 pg (28.0-33.3); Mean Corpuscular Volume 97.5 fL (83.0-100.0); Mean Platelet Volume 11.1 fL (9.4-12.4); Monocytes # 0.4 K/mcL (0.0-1.3); Monocytes % 8.6 %; Neutrophils # 3.6 K/mcL (1.6-8.9); Red Blood Count 3.63 M/mcL (3.82-4.97); Red Cell Distribution Width 16.1 % (11.5-14.5); Segmented Neutrophils % 74.9 %
[2016-12-28 05:19] LABS: INR 1.2; Prothrombin Time 12.7 Seconds (9.4-12.1)
[2016-12-28 05:21] LABS: Activated Partial Thrombo Time 26.9 Seconds (26.0-36.0)
[2016-12-28 05:27] LABS: BUN/Creatinine Ratio 24 (6-26); Blood Urea Nitrogen 25 mg/dL (7-20); Calcium 9.1 mg/dL (8.6-10.8); Carbon Dioxide 24 mEq/L (19-29); Chloride 107 mEq/L (98-109); Glucose 143 mg/dL (70-99); Osmolality,Calculated 301 (280-300); Potassium 3.8 mEq/L (3.5-4.5); Sodium 142 mEq/L (136-145); eGFR For African Americans > 60 (> 60); eGFR For Non-African Americans 51 (> 60)
[2016-12-28 05:41] LABS: Bilirubin,Urine Negative (Negative); Blood,Urine Moderate (Negative); Clarity,Urine Clear (Clear); Color,Urine Yellow (Yellow); Glucose,Urine (UA) Normal (Normal); Ketones,Urine Negative (Negative); Leukocyte Esterase,Urine Negative (Negative); Nitrite,Urine Negative (Negative); Protein,Urine 100 mg/dL (Neg-Trace); Specific Gravity,Urine 1.025 (1.010-1.025); Urobilinogen,Urine Normal (Normal)
[2016-12-28 05:41] LABS: Platelet Count 129 K/mcL (140-400)
[2016-12-28 05:46] LABS: Bacteria,Urine None Seen per hpf (None-Few); Hyaline Casts,Urine None Seen per lpf (None-Few); RBC,Urine 15-30 per hpf (0-3); Squamous Epithelial Cell,Urine Many per lpf (None-Few)
[2016-12-28] MEDS ORDERED: Furosemide 40 MG/4 ML VIAL IVP ONE (05:52)
[2016-12-28] MEDS ORDERED: Vancomycin 1,000 MG in D5% in Water 250 ML IVPB ONE (07:10)
[2016-12-28] MEDS ORDERED: Piperacillin/Tazobactam 4.5 GM in D5% in Water (Mini-Bag+) 100 ML IVPB ONE (07:14)
[2016-12-28] MEDS ORDERED: Levofloxacin 750 MG/150 ML 750 MG/150 ML BAG IVPB ONE (07:14)
--- NOTE | 2016-12-28 07:22 | Emergency Department Note ---
Disposition Clinical Impression: HAP (hospital-acquired pneumonia), Hematuria CHF exacerbation Qualifiers: Congestive heart failure type: unspecified congestive heart failure type Qualified Code(s): I50.9 - Heart failure, unspecified Disposition: Admitted As Inpatient Condition: Fair Referrals: NO,PCP [Non-Partnered Physician] - Forms: ED Satisfaction Letter, Work/School Release General Adult HPI - General Chief complaint: ED Abdominal Pain Stated complaint: upper abd pain/SOB Time Seen by Provider: 12/28/16 04:35 Source: patient Mode of arrival: ambulatory Limitations: no limitations - History of Present Illness Pain Scale: 8 - Related Data Home Medications Medication Instructions Recorded Confirmed Ibuprofen [Motrin] 400 mg PO BID PRN 12/24/16 12/28/16 Metoprolol Tartrate [Lopressor] 50 mg PO BID 12/24/16 12/28/16 Oxazepam [Serax] 15 mg PO QID 12/24/16 12/28/16 Allergies Allergy/AdvReac Type Severity Reaction Status Date / Time morphine AdvReac Severe severe Verified 12/28/16 04:27 headache/questionable seizure nitroglycerin AdvReac Headache Verified 12/28/16 04:27 Constitutional: Denies: fever, chills, weakness, weight change Eyes: Denies: eye pain, eye discharge, vision change ENT ED: Denies: ear pain, throat pain, dental pain, hearing loss, epistaxis, congestion, dysphagia Cardiovascular: Reports: chest pain, dyspnea on exertion Respiratory: Reports: cough Gastrointestinal: Reports: abdominal pain, nausea. Denies: vomiting, diarrhea, constipation, hematemesis, melena, hematochezia Genitourinary: Denies: dysuria, frequency, hematuria, discharge Musculoskeletal: Denies: back pain, neck pain, arthralgia, myalgia Integumentary: Denies: rash, abrasion, lesions Neurological: Denies: headache, weakness, numbness, paresthesias, confusion, abnormal gait, vertigo Past Medical History - Past Medical History Medical history: Reports: aortic aneurysm, atrial fibrillation, cancer, CHF, COPD, coronary artery disease, hyperlipidemia, hypertension, myocardial infarction, TIA Surgical history: Reports: appendectomy, coronary bypass (CABG) Psychiatric history: Reports: anxiety - Social History Smoking Status: Former smoker Smokeless Tobacco Status: No Alcohol use: Reports: none Drug use: Reports: none Physical Exam - General Limitations: no limitations General appearance: alert, in no apparent distress Course Course Narrative: Assumed care of this patient from Emily Alcala CNP. Report received was that patient is in need of admission for a CHF exacerbation. An order for Lasix has been entered and the patient has already been flagged for admission. Emily has been waiting for the hospitalist to call back. On exam, patient is resting comfortably with no complaints at this time. She describes intermittent heaviness in the ribs bilaterally from upper to lower. She does not appear to be in any discomfort. She appears much younger than stated age. She has coarse rhonchi in the right base and rales in the left. There is no appreciable pitting edema in the extremities. Her labs show stable thrombocytopenia, elevated BNP at 1700 and a troponin of 0.03. Chest x-ray shows a right lung pneumonia. Patient was recently admitted to the hospital; about a week ago. Will treat for hospital-acquired pneumonia. Case was discussed with Dr. Honeycutt. He has already seen the patient and agrees with the assessment and plan. Case was discussed with the hospitalist. He will accept the patient for admission. Vital Signs Temperature 97.9 F 12/28/16 04:22 Pulse Rate 91 12/28/16 04:22 Respiratory Rate 20 12/28/16 04:22 Blood Pressure 138/98 12/28/16 04:22 O2 Sat by Pulse Oximetry 96 12/28/16 04:22 Temperature 97.9 F 12/28/16 04:22 Pulse Rate 74 12/28/16 06:54 Respiratory Rate 18 12/28/16 06:54 Blood Pressure 172/94 12/28/16 06:54 O2 Sat by Pulse Oximetry 98 12/28/16 06:54 Oxygen Delivery Oxygen Delivery Room Air Medical Decision Making - Medical Records Medical records reviewed: Yes I reviewed the patient's medical records. - Lab Data Lab results reviewed: Yes I reviewed the patient's lab results. Lab results narrative: Laboratory Last Values WBC 4.8 K/mcL (4.3-11.1) 12/28/16 05:07 RBC 3.63 M/mcL (3.82-4.97) L 12/28/16 05:07 Hgb 11.1 g/dL (11.5-15.4) L 12/28/16 05:07 Hct 35.4 % (35.3-44.9) 12/28/16 05:07 MCV 97.5 fL (83.0-100.0) 12/28/16 05:07 MCH 30.6 pg (28.0-33.3) 12/28/16 05:07 MCHC 31.4 g/dL (31.6-35.5) L 12/28/16 05:07 RDW 16.1 % (11.5-14.5) H 12/28/16 05:07 Plt Count 129 K/mcL (140-400) L 12/28/16 05:07 MPV 11.1 fL (9.4-12.4) 12/28/16 05:07 Immature Gran % 0.4 % (0-4) 12/28/16 05:07 Seg Neutrophils % 74.9 % 12/28/16 05:07 Lymphocytes % 13.2 % 12/28/16 05:07 Monocytes % 8.6 % 12/28/16 05:07 Eosinophils % 2.3 % 12/28/16 05:07 Basophils % 0.6 % 12/28/16 05:07 Neutrophils # 3.6 K/mcL (1.6-8.9) 12/28/16 05:07 Lymphocytes # 0.6 K/mcL (0.6-4.6) 12/28/16 05:07 Monocytes # 0.4 K/mcL (0.0-1.3) 12/28/16 05:07 Eosinophils # 0.1 K/mcL (0.0-0.6) 12/28/16 05:07 Basophils # 0.0 K/mcL (0.0-0.2) 12/28/16 05:07 PT 12.7 Seconds (9.4-12.1) H 12/28/16 05:07 INR 1.2 12/28/16 05:07 APTT 26.9 Seconds (26.0-36.0) 12/28/16 05:07 Sodium 142 mEq/L (136-145) 12/28/16 05:07 Potassium 3.8 mEq/L (3.5-4.5) 12/28/16 05:07 Chloride 107 mEq/L (98-109) 12/28/16 05:07 Carbon Dioxide 24 mEq/L (19-29) 12/28/16 05:07 BUN 25 mg/dL (7-20) H 12/28/16 05:07 Creatinine 1.03 mg/dL (0.57-1.11) 12/28/16 05:07 Est GFR ( Amer) > 60 (> 60) 12/28/16 05:07 Est GFR (Non-Af Amer) 51 (> 60) L 12/28/16 05:07 BUN/Creatinine Ratio 24 (6-26) 12/28/16 05:07 Glucose 143 mg/dL (70-99) H 12/28/16 05:07 Calculated Osmolality 301 (280-300) H 12/28/16 05:07 Calcium 9.1 mg/dL (8.6-10.8) 12/28/16 05:07 Troponin I 0.03 ng/mL (0-0.03) 12/28/16 05:07 B-Natriuretic Peptide 1713 pg/mL (0-100) H 12/28/16 05:07 Urine Color Yellow (Yellow) 12/28/16 05:10 Urine Clarity Clear (Clear) 12/28/16 05:10 Urine pH 6.0 pH Units (5.0-8.0) 12/28/16 05:10 Ur Specific [place] 1.025 (1.010-1.025) 12/28/16 05:10 Urine Protein 100 mg/dL (Neg-Trace) H 12/28/16 05:10 Urine Glucose (UA) Normal mg/dL (Normal) 12/28/16 05:10 Urine Ketones Negative mg/dL (Negative) 12/28/16 05:10 Urine Blood Moderate (Negative) H 12/28/16 05:10 Urine Nitrite Negative (Negative) 12/28/16 05:10 Urine Bilirubin Negative (Negative) 12/28/16 05:10 Urine Urobilinogen Normal mg/dL (Normal) 12/28/16 05:10 Ur Leukocyte Esterase Negative (Negative) 12/28/16 05:10 Urine Microscopic RBC 15-30 per hpf (0-3) H 12/28/16 05:10 Urine Microscopic WBC 3-5 per hpf (0-3) H 12/28/16 05:10 Ur Squamous Epith Cells Many per lpf (None-Few) H 12/28/16 05:10 Urine Bacteria None Seen per hpf (None-Few) 12/28/16 05:10 Hyaline Casts None Seen per lpf (None-Few) 12/28/16 05:10 Ur Culture Indicated? NO (NO) 12/28/16 05:10 Result diagrams: 12/28/16 05:07 12/28/16 05:07 Lab Results 12/28/16 12/28/16 12/28/16 Range/Units 05:07 05:07 05:07 WBC 4.8 (4.3-11.1) K/mcL RBC 3.63 L (3.82-4.97) M/mcL Hgb 11.1 L (11.5-15.4) g/dL Hct 35.4 (35.3-44.9) % MCV 97.5 (83.0-100.0) fL MCH 30.6 (28.0-33.3) pg MCHC 31.4 L (31.6-35.5) g/dL RDW 16.1 H (11.5-14.5) % Plt Count 129 L (140-400) K/mcL MPV 11.1 (9.4-12.4) fL Immature Gran % 0.4 (0-4) % Seg Neutrophils % 74.9 % Lymphocytes % 13.2 % Monocytes % 8.6 % Eosinophils % 2.3 % Basophils % 0.6 % Neutrophils # 3.6 (1.6-8.9) K/mcL Lymphocytes # 0.6 (0.6-4.6) K/mcL Monocytes # 0.4 (0.0-1.3) K/mcL Eosinophils # 0.1 (0.0-0.6) K/mcL Basophils # 0.0 (0.0-0.2) K/mcL PT 12.7 H (9.4-12.1) Seconds INR 1.2 APTT 26.9 (26.0-36.0) Seconds Sodium (136-145) mEq/L Potassium (3.5-4.5) mEq/L Chloride (98-109) mEq/L Carbon Dioxide (19-29) mEq/L BUN (7-20) mg/dL Creatinine (0.57-1.11) mg/dL Est GFR ( Amer) (> 60) Est GFR (Non-Af Amer) (> 60) BUN/Creatinine Ratio (6-26) Glucose (70-99) mg/dL Calculated Osmolality (280-300) Calcium (8.6-10.8) mg/dL Troponin I (0-0.03) ng/mL B-Natriuretic Peptide 1713 H (0-100) pg/mL Urine Color (Yellow) Urine Clarity (Clear) Urine pH (5.0-8.0) pH Units Ur Specific [place] (1.010-1.025) Urine Protein (Neg-Trace) mg/dL Urine Glucose (UA) (Normal) mg/dL Urine Ketones (Negative) mg/dL Urine Blood (Negative) Urine Nitrite (Negative) Urine Bilirubin (Negative) Urine Urobilinogen (Normal) mg/dL Ur Leukocyte Esterase (Negative) Urine Microscopic RBC (0-3) per hpf Urine Microscopic WBC (0-3) per hpf Ur Squamous Epith Cells (None-Few) per lpf Urine Bacteria (None-Few) per hpf Hyaline Casts (None-Few) per lpf Ur Culture Indicated? (NO) 12/28/16 12/28/16 12/28/16 Range/Units 05:07 05:07 05:10 WBC (4.3-11.1) K/mcL RBC (3.82-4.97) M/mcL Hgb (11.5-15.4) g/dL Hct (35.3-44.9) % MCV (83.0-100.0) fL MCH (28.0-33.3) pg MCHC (31.6-35.5) g/dL RDW (11.5-14.5) % Plt Count (140-400) K/mcL MPV (9.4-12.4) fL Immature Gran % (0-4) % Seg Neutrophils % % Lymphocytes % % Monocytes % % Eosinophils % % Basophils % % Neutrophils # (1.6-8.9) K/mcL Lymphocytes # (0.6-4.6) K/mcL Monocytes # (0.0-1.3) K/mcL Eosinophils # (0.0-0.6) K/mcL Basophils # (0.0-0.2) K/mcL PT (9.4-12.1) Seconds INR APTT (26.0-36.0) Seconds Sodium 142 (136-145) mEq/L Potassium 3.8 (3.5-4.5) mEq/L Chloride 107 (98-109) mEq/L Carbon Dioxide 24 (19-29) mEq/L BUN 25 H (7-20) mg/dL Creatinine 1.03 (0.57-1.11) mg/dL Est GFR ( Amer) > 60 (> 60) Est GFR (Non-Af Amer) 51 L (> 60) BUN/Creatinine Ratio 24 (6-26) Glucose 143 H (70-99) mg/dL Calculated Osmolality 301 H (280-300) Calcium 9.1 (8.6-10.8) mg/dL Troponin I 0.03 (0-0.03) ng/mL B-Natriuretic Peptide (0-100) pg/mL Urine Color Yellow (Yellow) Urine Clarity Clear (Clear) Urine pH 6.0 (5.0-8.0) pH Units Ur Specific [place] 1.025 (1.010-1.025) Urine Protein 100 H (Neg-Trace) mg/dL Urine Glucose (UA) Normal (Normal) mg/dL Urine Ketones Negative (Negative) mg/dL Urine Blood Moderate H (Negative) Urine Nitrite Negative (Negative) Urine Bilirubin Negative (Negative) Urine Urobilinogen Normal (Normal) mg/dL Ur Leukocyte Esterase Negative (Negative) Urine Microscopic RBC 15-30 H (0-3) per hpf Urine Microscopic WBC 3-5 H (0-3) per hpf Ur Squamous Epith Cells Many H (None-Few) per lpf Urine Bacteria None Seen (None-Few) per hpf Hyaline Casts None Seen (None-Few) per lpf Ur Culture Indicated? NO (NO) - Radiology Data Radiology results reviewed: Yes I reviewed the patient's radiology results. Chest X-Ray 12/28/16 05:04 IMPRESSION: Right upper lobe airspace disease suggests pneumonia. D/ / Corey Foy MD / Corey Foy MD Interpreting Provider: Corey Foy MD
[2016-12-28] MEDS ORDERED: *HR* HYDROmorphone (PF) 1 MG/ML SYRINGE IVP PRN (07:57)
[2016-12-28] MEDS ORDERED: Naloxone 0.4 MG/ML INJ IVP PRN (07:57)
[2016-12-28] MEDS ORDERED: Acetaminophen 325 MG TABLET PO PRN (07:57)
[2016-12-28] MEDS ORDERED: Ondansetron 4 MG/2 ML VIAL IVP PRN (07:57)
[2016-12-28] MEDS ORDERED: Vancomycin 1 EACH in D5% in Water 250 ML IVPB SCH (09:00)
--- NOTE | 2016-12-28 09:06 | Internal Med History&Physical ---
Date of Encounter: 12/28/16 Time of Encounter: 08:30 Assessment and Plan (1) Pneumonia Current visit: Yes Status: Acute Patient with recent admission 12/2016 Presented with SOB and cough CXR with RUL pneumonia Send Urine Legionella and Streptococcal Ag Sputum culture has been ordered, follow Continue Vanco and Cefepime De-escalate prn with sputum/blood cultures Not hypoxic High risk patient due to use of Vancomycin Qualifiers: Pneumonia type: due to unspecified organism Laterality: right Lung location: upper lobe of lung Qualified Code(s): J18.1 - Lobar pneumonia, unspecified organism (2) CHF (congestive heart failure) Current visit: Yes Status: Chronic EF 35-40% Patient on BB only Start on lasix po, ACEI, continue BB Mild leg swelling, no pulmonary edema Qualifiers: Congestive heart failure type: systolic Congestive heart failure chronicity : chronic Qualified Code(s): I50.22 - Chronic systolic (congestive) heart failure (3) Seizure Current visit: Yes Status: Chronic Resume home meds (4) Anxiety Current visit: Yes Status: Chronic Resume home meds (5) CAD (coronary artery disease) Current visit: Yes Status: Chronic Patient is not taking any ASA On BB only She denies prior GI bleed but is unable to state why she is not on medications for this Possibly medications were held due to her home hospice status Continue BB only for now Qualifiers: Coronary Disease-Associated Artery/Lesion type: bypass graft [place] vs. transplanted heart: [place] heart Associated angina: with unstable angina Qualified Code(s): I25.700 - Atherosclerosis of coronary artery bypass graft(s) , unspecified, with unstable angina pectoris (6) Atrial fibrillation Current visit: Yes Status: Chronic Rate controlled Not on anticoagulation Continue BB Qualifiers: Atrial fibrillation type: chronic Qualified Code(s): I48.2 - Chronic atrial fibrillation (7) Left breast mass Current visit: Yes Status: Chronic Possibly malignant Patient re-emphasizes she will not pursue any further investigation or treatment (8) Essential hypertension Current visit: Yes Status: Chronic Controlled, continue home meds Internal Medicine - H&P: HPI Chief complaint: Shortness of breath Admitted From: Home Plans for Post Hospital Care: Home History of present illness: Ms. Saenz is a 86 year old female DNR-CCA with PMH of CHFrEF EF 30-35%, Afib not on A/C, HTN, CAD, L breat mass for which patient does not want intervention She was in her usual state of health till about a week ago when she developed shortness of breath and cough, which she states is sometimes productive , she states she cannot state what the color is She denies rhinorrhea or sore throat, no sick contacts, no recent travels She denies fever or chills at home, but states she did feel warm sometimes. She also reported leg and facial swelling for which she took lasix which she has had at home in a while She denies any abdominal discomfort, she has chronic feeling of bloating, and reports this has not changes, no nausea or vomiting She denies chest pain, palpitations, dizziness, or diaphoresis She denies changes in urinary habits, or color Other ROS not contributory She was worke up and started on Antibiotics for HCAP coverage in the ER At time of review, she is hemodynamically stable Patient with prior home hospice placement which she revoked during her last admission in December She doesn't have a HPOA but states she is DNR-CCA Past Med Surg Social Fam HX - Past Medical History Medical history: aortic aneurysm, atrial fibrillation, cancer, CHF, COPD, coronary artery disease, hyperlipidemia, hypertension, myocardial infarction, TIA Psychiatric history: anxiety - Past Surgical History Surgical History: appendectomy, coronary bypass (CABG) - Social History Smoking Status: Former smoker Smokeless Tobacco Status: No Alcohol use: none Drug use: none - Family History Brother Family Member Ethnicity: Non- Living Status: Hx Family Cancer: Yes (Throat) Father Adopted: No Family Member Ethnicity: Non- Living Status: Hx Family Cardiac Disorders: Yes (HD) Hx Family Respiratory Disorders: Yes (Emphysema) Hx Family Cancer: Yes (MOTHER COLON CA) Mother Family Member Ethnicity: Non- Living Status: Internal Medicine - H&P: Meds Ibuprofen [Motrin] 400 mg PO BID PRN 12/24/16 [History] Metoprolol Tartrate [Lopressor] 50 mg PO BID 12/24/16 [History] Oxazepam [Serax] 15 mg PO QID 12/24/16 [History] Allergies morphine Adverse Reaction (Severe, Verified 12/28/16 04:27) severe headache/questionable seizure nitroglycerin Adverse Reaction (Verified 12/28/16 04:27) Headache All Systems PM: A 10-system review of systems was performed and is negative for pertinent findings except as documented above in the HPI. - Constitutional Constitutional: as per HPI - EENT Eyes: no change in vision, no discharge, no pain, no photophobia Ears: no ear discharge, no ear pain, no tinnitus Nose, mouth and throat: no dysphagia, no nasal discharge, no neck pain, no sore throat - Breasts Breasts: as per HPI, mass - Cardiovascular Cardiovascular ROS IM: no chest pain, no diaphoresis, no dyspnea, no lightheadedness, no palpitations, no syncope - Respiratory Respiratory: as per HPI - Gastrointestinal Gastrointestinal: as per HPI - Genitourinary Genitourinary: as per HPI - Musculoskeletal Musculoskeletal ROS IM: as per HPI - Integumentary Integumentary IM: as per HPI - Neurological Neurological ROS: as per HPI - Psychiatric Psychiatric: as per HPI - Hematologic/Lymphatic Hematologic/Lymphatic: as per HPI - Constitutional Vitals: Temp Pulse Resp BP Pulse Ox 98.2 F 83 18 179/109 100 12/28/16 08:45 12/28/16 08:45 12/28/16 08:45 12/28/16 08:45 12/28/16 08:45 General appearance: Present: A&O X 3, pleasant, no acute distress - Head Head exam: Present: atraumatic, normocephalic - Eye Eye exam: Present: PERRL, conjuntiva pink, sclera anicteric Pupils: Present: PERRL Additional comments: Periorbital edema - Neck Neck exam general surgery: Present: supple, trachea midline. Absent: lymphadenopathy - Respiratory Respiratory exam: Present: CTAB. Absent: accessory muscle use, rales, rhonchi, wheezes - Cardiovascular Cardiovascular exam: Present: irregular rhythm, +S1, +S2, systolic murmur. Absent: diastolic murmur, gallop, rubs - GI/Abdominal GI/Abdominal exam: Present: normal bowel sounds, soft, no peritoneal signs. Absent: distended, tenderness - Extremities Exam Extremities exam: Present: pedal edema (Trace), warm, radial pulses palpable and symetrical. Absent: calf tenderness, cyanotic - Neurological Exam Neurological exam: Present: alert, CN II-XII intact, oriented X3, no focal deficits. Absent: pronater drift, facial droop, speech deficit - Skin Skin exam: Present: dry, intact Internal Med - H&P Results - Labs CBC & Chem 7: 12/28/16 05:07 12/28/16 05:07
[2016-12-28] MEDS: Cefepime HCl 1,000 MG in D5% in Water (Mini-Bag+) 100 ML IVPB SCH ×2 (10:12→17:09)
[2016-12-28] MEDS: Vancomycin 1,000 MG in D5% in Water 250 ML IVPB SCH (10:13)
[2016-12-28] MEDS: *HR* Heparin 5,000 UNIT/ML VIAL SQ SCH ×3 (15:48→21:42)
[2016-12-28] MEDS: *HR* HYDROcodone/Acet 5/325 mg TABLET PO PRN (19:48)
[2016-12-29] MEDS: Cefepime HCl 1,000 MG in D5% in Water (Mini-Bag+) 100 ML IVPB SCH ×2 (00:57→09:23)
[2016-12-29] MEDS: *HR* Heparin 5,000 UNIT/ML VIAL SQ SCH ×3 (05:57→20:57)
[2016-12-29 06:24] LABS: Basophils % 0.9 %; Eosinophils # 0.2 K/mcL (0.0-0.6); Eosinophils % 5.3 %; Hematocrit 32.7 % (35.3-44.9); Hemoglobin 10.5 g/dL (11.5-15.4); Immature Granulocytes % 0.3 % (0-4); Lymphocytes # 0.6 K/mcL (0.6-4.6); Lymphocytes % 19.3 %; Mean Corpuscular HGB Conc 32.1 g/dL (31.6-35.5); Mean Corpuscular Volume 96.5 fL (83.0-100.0); Mean Platelet Volume 10.6 fL (9.4-12.4); Monocytes # 0.3 K/mcL (0.0-1.3); Monocytes % 9.9 %; Neutrophils # 2.1 K/mcL (1.6-8.9); Red Blood Count 3.39 M/mcL (3.82-4.97); Red Cell Distribution Width 15.9 % (11.5-14.5); Segmented Neutrophils % 64.3 %
[2016-12-29 06:26] LABS: Platelet Count 85 K/mcL (140-400)
[2016-12-29 06:35] LABS: Calcium 8.2 mg/dL (8.6-10.8); Potassium 3.3 mEq/L (3.5-4.5)
[2016-12-29] MEDS: Furosemide 40 MG TABLET PO SCH (09:20)
[2016-12-29] MEDS: *HR* HYDROcodone/Acet 5/325 mg TABLET PO PRN (09:22)
[2016-12-29] MEDS: Vancomycin 1,000 MG in D5% in Water 250 ML IVPB SCH (10:10)
--- NOTE | 2016-12-29 11:19 | Electrocardiograph Report ---
[address] [place] [address] Test Date: 2016-12-28 Pat Name: Beverley Saenz Department: 105 Room: 2NE31 Gender: Account Assistant: BORIS : 1930 Requested By: Mars Honeycutt Order Number: [id number] Reading MD: Ethan Thao MD Measurements Intervals [place] Rate: 77 P: MO: 0 QRS: -54 QRSD: 149 T: 17 QT: 415 QTc: 447 Interpretive Statements ATRIAL FIBRILLATION WITH ABERRANT CONDUCTION OR VENTRICULAR PREMATURE COMPLEXES RIGHT BUNDLE BRANCH BLOCK LEFT ANTERIOR FASCICULAR BLOCK MODERATE VOLTAGE CRITERIA FOR LVH INFERIOR MYOCARDIAL INFARCTION, PROBABLY OLD ANTEROSEPTAL MYOCARDIAL INFARCTION, OF INDETERMINATE AGE Electronically Signed On 12-29-2016 11:18:26 EDT by Ethan Thao MD
--- NOTE | 2016-12-29 11:19 | Electrocardiograph Report ---
[address] [place], [place] [address] Test Date: 2016-12-28 Pat Name: Beverley Saenz Department: 104 Room: 2NE31 Gender: F Diver Pumper: : 1930 Requested By: Megan Alcala Order Number: [id number] Reading MD: Ethan Thao MD Measurements Intervals [place] Rate: 78 P: [place]: 0 QRS: 238 QRSD: 144 T: 162 QT: 405 QTc: 438 Interpretive Statements ATRIAL FIBRILLATION WITH ABERRANTLY CONDUCTED COMPLEXES OR PVCS MARKED RIGHT AXIS DEVIATION RIGHT BUNDLE BRANCH BLOCK INFERIOR MYOCARDIAL INFARCTION, PROBABLY OLD ANTEROSEPTAL MYOCARDIAL INFARCTION, OF INDETERMINATE AGE Electronically Signed On 12-29-2016 11:17:54 EDT by Ethan Thao MD
[2016-12-29] MEDS ORDERED: Naloxone 0.4 MG/ML INJ IM PRN (15:49)
--- NOTE | 2016-12-29 15:57 | Internal Med Progress Note ---
<Nelson Garrison - Last Filed: 12/29/16 15:54> Date of Encounter: 12/29/16 Time of Encounter: 15:54 - Assessment and plan (1) Pneumonia Current Visit: Yes Status: Acute Assessment and plan: Chest x-ray was read as possible pneumonia in the right upper lobe however CT scan of the chest reveals no evidence of pneumonia. No leukocytosis. At this point I feel that pneumonia is less likely in her shortness of breath is likely driven by her significant anxiety. We will de-escalate antibiotics to by mouth Levaquin only. Qualifiers: Pneumonia type: due to unspecified organism Laterality: right Lung location: upper lobe of lung Qualified Code(s): J18.1 - Lobar pneumonia, unspecified organism (2) Anxiety Current Visit: Yes Status: Chronic Assessment and plan: I believe the patient's multiple admissions for shortness of breath or driven by her anxiety. Spoke at length with the patient, the patient's neighbor, as well as the patient's children who feel that she has difficulty living alone at home since her . Unfortunately the patient is extremely resistant to having any other help to rectify these issues including home health, extended care facility. Patient takes oxazepam 15 mg 4 times a day at home. Will trial a dose of oxazepam 30 mg and monitor the patient is responsive and if she tolerates this well and this seems to help her anxiety we will discharge her on this. (3) Left breast mass Current Visit: Yes Status: Chronic Assessment and plan: Redemonstrated on CT scan of the chest. Patient is adamant that she does not want any further testing or treatment. It was explained to the patient at length that this could be malignant and given that her daughter has a diagnosis of breast cancer there is a possibility that there is a genetic component and further testing could benefit other family members however the patient remains adamant that she wants no further workup of this left breast mass. (4) Goals of care, counseling/discussion Current Visit: No Status: Acute Assessment and plan: Patient had previously been enrolled in [facility] but this was revoked for the patient to come to the emergency room on a previous visit. Patient is interested in reestablishing with hospice however I spoke with Dr. Jiang who is the clerical associate of [facility] and apparently the patient was doing so well on hospice previously that they feel she is no longer eligible for hospice benefit at this time. CT scan of the chest and head were performed to evaluate for possible metastasis of this left breast mass and if metastasis was present then the patient would likely qualify for hospice but the scans were unremarkable for metastatic disease. A long conversation was held with the patient's son and daughter, attending physician Dr. Blanco, resident physician Dr. Garrison, and nurse Narcisa. In the possible treatment options and the patient's goals of care and plan of care were explained at length to the patient's children. It was explained that the patient is no longer hospice eligible and the family agreed that loneliness and anxiety was the main drive away driver of her emergency department visits. The family stated that they will attempt to hire someone to check in on the patient and help her with day-to-day tasks. At this time the patient is refusing to allow us to assist in setting up home health services or any other outpatient services. We will continue to discuss the possible options with patient and her family regarding goals and plan of care once discharged. (5) CHF (congestive heart failure) Current Visit: Yes Status: Chronic Assessment and plan: No evidence of acute failure. Continue beta lisa. Qualifiers: Congestive heart failure type: systolic Congestive heart failure chronicity : chronic Qualified Code(s): I50.22 - Chronic systolic (congestive) heart failure (6) Atrial fibrillation Current Visit: Yes Status: Chronic Assessment and plan: Rate controlled. Continue beta lisa. Patient declines anticoagulation. Qualifiers: Atrial fibrillation type: chronic Qualified Code(s): I48.2 - Chronic atrial fibrillation (7) Essential hypertension Current Visit: Yes Status: Chronic Assessment and plan: Blood pressures under good control. Continue beta lisa. (8) DVT prophylaxis Current Visit: No Status: Acute Assessment and plan: Heparin 5000 units subcutaneous twice a day. - Subjective Interval history: Patient seen and examined at bedside. Patient states that her breathing feels pretty normal today. She denies fever, chills, chest pain, cough. She states that she can get extremely anxious at night and this caused her shortness of breath. - Constitutional Vitals: Temp Pulse Resp BP Pulse Ox 97.4 F L 67 18 131/75 99 12/29/16 11:26 12/29/16 11:26 12/29/16 11:26 12/29/16 11:26 12/29/16 11:26 General appearance: Present: A&O X 3, pleasant, no acute distress - Respiratory Respiratory exam: Present: CTAB. Absent: rales, rhonchi, wheezes - Cardiovascular Cardiovascular exam: Present: irregular rhythm. Absent: gallop, rubs, systolic murmur - GI/Abdominal GI/Abdominal exam: Present: normal bowel sounds, soft. Absent: distended, tenderness - Extremities Exam Extremities exam: Present: warm. Absent: pedal edema, tenderness - Neurological Exam Neurological exam: Present: alert, CN II-XII intact, oriented X3, no focal deficits - Psychiatric Psychiatric exam: Present: anxious Internal Medicine: Result - Labs CBC & Chem 7: 12/29/16 06:15 12/29/16 06:15 Labs: Short CBC 12/29/16 Range/Units 06:15 WBC 3.2 L (4.3-11.1) K/mcL Hgb 10.5 L (11.5-15.4) g/dL Hct 32.7 L (35.3-44.9) % Plt Count 85 L (140-400) K/mcL Neutrophils # 2.1 (1.6-8.9) K/mcL BMP 12/29/16 06:15 Sodium 141 Potassium 3.3 L Chloride 105 Carbon Dioxide 29 BUN 21 H Creatinine 1.06 Glucose 106 H Calcium 8.2 L - ABG Interpretation ABG results: PT/INR, D-dimer PT 12.7 Seconds (9.4-12.1) H 12/28/16 05:07 - Impressions Impressions Chest CT 12/29/16 10:07 IMPRESSION: 1. Stable cardiomegaly with extensive atherosclerosis and essentially stable 5.4 cm descending thoracic aortic aneurysm. Stable left ventricular inferior apical 2.2 cm aneurysm. 2. Stable chronic pulmonary arterial hypertension with subtle central pulmonary changes which may represent early edema. Mild bilateral effusions and lower lobe atelectasis. 3. No evidence of acute pneumonia or overt congestive heart failure. 4. Redemonstration of left breast 12 o'clock spiculated mass concerning for primary malignancy. There is no evidence of thoracic metastatic disease. D/ / 12/29/2016 11:35:56 Eulogio Lechuga MD / li Interpreting Provider: Eulogio Lechuga MD Head CT 12/29/16 10:07 IMPRESSION: 1. No acute intracranial abnormality. No evidence of a brain mass, although, the study is limited without intravenous contrast. 2. Stable frontoparietal atrophy. D/ / Nathan Baptiste MD / Nathan Baptiste MD Interpreting Provider: Nathan Baptiste MD Consult Discharge Plan - Plan Referrals: Kenny Lisa MD [Primary Care Provider] - 01/05/17 3:15 pm <Fred Blanco P - Last Filed: 12/29/16 17:22> Date of Encounter: 12/29/16 - Constitutional Vitals: Temp Pulse Resp BP Pulse Ox 98.1 F 63 18 140/53 97 12/29/16 16:51 12/29/16 16:51 12/29/16 16:51 12/29/16 16:51 12/29/16 16:51 Internal Medicine: Result - Labs CBC & Chem 7: 12/29/16 06:15 12/29/16 06:15 Labs: Short CBC 12/29/16 Range/Units 06:15 WBC 3.2 L (4.3-11.1) K/mcL Hgb 10.5 L (11.5-15.4) g/dL Hct 32.7 L (35.3-44.9) % Plt Count 85 L (140-400) K/mcL Neutrophils # 2.1 (1.6-8.9) K/mcL BMP 12/29/16 06:15 Sodium 141 Potassium 3.3 L Chloride 105 Carbon Dioxide 29 BUN 21 H Creatinine 1.06 Glucose 106 H Calcium 8.2 L - ABG Interpretation ABG results: PT/INR, D-dimer PT 12.7 Seconds (9.4-12.1) H 12/28/16 05:07 - Impressions Impressions Chest CT 12/29/16 10:07 IMPRESSION: 1. Stable cardiomegaly with extensive atherosclerosis and essentially stable 5.4 cm descending thoracic aortic aneurysm. Stable left ventricular inferior apical 2.2 cm aneurysm. 2. Stable chronic pulmonary arterial hypertension with subtle central pulmonary changes which may represent early edema. Mild bilateral effusions and lower lobe atelectasis. 3. No evidence of acute pneumonia or overt congestive heart failure. 4. Redemonstration of left breast 12 o'clock spiculated mass concerning for primary malignancy. There is no evidence of thoracic metastatic disease. D/ / 12/29/2016 11:35:56 Eulogio Lechuga MD / li Interpreting Provider: Eulogio Lechuga MD Head CT 12/29/16 10:07 IMPRESSION: 1. No acute intracranial abnormality. No evidence of a brain mass, although, the study is limited without intravenous contrast. 2. Stable frontoparietal atrophy. D/ / Nathan Baptiste MD / Nathan Baptiste MD Interpreting Provider: Nathan Baptiste MD - Attending Attestation I examined this patient and my medical decision-making was reviewed with the PLANTING MACHINE OPERATOR/PA/Advanced Practice Nurse/Resident Physician. I agree with the documented findings, disposition and treatment plan as described except to the extent set forth below.
[2016-12-29] MEDS ORDERED: levoFLOXacin 750 MG TABLET PO SCH (16:00)
[2016-12-30] MEDS: *HR* HYDROcodone/Acet 5/325 mg TABLET PO PRN (04:26)
[2016-12-30 04:55] LABS: Basophils % 0.6 %; Eosinophils # 0.1 K/mcL (0.0-0.6); Eosinophils % 3.6 %; Hematocrit 34.2 % (35.3-44.9); Hemoglobin 10.6 g/dL (11.5-15.4); Immature Granulocytes % 0.6 % (0-4); Lymphocytes # 0.6 K/mcL (0.6-4.6); Mean Corpuscular Hemoglobin 30.1 pg (28.0-33.3); Mean Corpuscular Volume 97.2 fL (83.0-100.0); Mean Platelet Volume 10.5 fL (9.4-12.4); Monocytes # 0.5 K/mcL (0.0-1.3); Monocytes % 13.3 %; Neutrophils # 2.4 K/mcL (1.6-8.9); Platelet Count 110 K/mcL (140-400); Red Blood Count 3.52 M/mcL (3.82-4.97); Red Cell Distribution Width 15.9 % (11.5-14.5); Segmented Neutrophils % 65.9 %
[2016-12-30 05:04] LABS: Calcium 8.7 mg/dL (8.6-10.8); Magnesium 1.4 mg/dL (1.6-2.6); Potassium 3.7 mEq/L (3.5-4.5)
[2016-12-30] MEDS: *HR* Heparin 5,000 UNIT/ML VIAL SQ SCH (06:48)
[2016-12-30 07:49] VITALS: BP 125/64
--- NOTE | 2016-12-30 08:12 | Discharge Summary ---
<Nelson Garrison - Last Filed: 12/30/16 08:24> Date of Encounter: 12/30/16 Time of Encounter: 08:09 - Discharge Diagnosis (1) Pneumonia Priority: Primary Status: Ruled-out Qualifiers: Pneumonia type: due to unspecified organism Laterality: right Lung location: upper lobe of lung Qualified Code(s): J18.1 - Lobar pneumonia, unspecified organism (2) Anxiety Priority: Primary Status: Chronic (3) Left breast mass Priority: Secondary Status: Chronic (4) Goals of care, counseling/discussion Priority: Secondary Status: Acute (5) CHF (congestive heart failure) Priority: Secondary Status: Chronic Qualifiers: Congestive heart failure type: systolic Congestive heart failure chronicity : chronic Qualified Code(s): I50.22 - Chronic systolic (congestive) heart failure (6) Atrial fibrillation Priority: Secondary Status: Chronic Qualifiers: Atrial fibrillation type: chronic Qualified Code(s): I48.2 - Chronic atrial fibrillation (7) Essential hypertension Priority: Secondary Status: Chronic (8) DVT prophylaxis Priority: Secondary Status: Acute - Discharge Medications Prescriptions: Gabapentin [Neurontin] 300 mg PO HS #30 capsule levoFLOXacin [Levaquin] 750 mg PO Q48H #4 tablet Oxazepam 30 mg PO QID PRN #120 capsule PRN Reason: Anxiety Home Medications: Ibuprofen [Motrin] 400 mg PO BID PRN 12/24/16 [History] Metoprolol Tartrate [Lopressor] 50 mg PO BID 12/24/16 [History] Gabapentin [Neurontin] 300 mg PO HS #30 capsule 12/30/16 [Rx] Oxazepam 30 mg PO QID PRN #120 capsule 12/30/16 [Rx] levoFLOXacin [Levaquin] 750 mg PO Q48H tablet 12/30/16 [Rx] levoFLOXacin [Levaquin] 750 mg PO Q48H #4 tablet 12/30/16 [Rx] Allergies/Adverse Reactions: Allergies morphine Adverse Reaction (Severe, Verified 12/28/16 04:27) severe headache/questionable seizure nitroglycerin Adverse Reaction (Verified 12/28/16 04:27) Headache Procedures/tests Complete & Pending: Procedures Performed prior 72 hours Category Date Time Status CT chest wo con [CT] Routine Cat Scan 12/29/16 10:[address] head/brain wo con [CT] Routine Cat Scan 12/29/16 10:07 Completed Date of admission: 12/28/16 08:34 Primary care physician: Kenny Lisa MD Consults: 12/29/16 11:45 Consult to Hearings Reporter [CONS] Routine Reason for SW Consult: No insurance/discharge planning Discharging clinician: Nelson Garrison Anticipated date of discharge: 12/30/16 - Patient Status Disposition: Home, Self-Care Condition: Fair Functional capacity at discharge: independent ambulation Overall status at discharge: patient is progressing back to baseline - Discharge Instructions Instructions: Heart Failure (DC), Anxiety (DC) Follow Up With: [facility] [Provider Group] - 01/05/17 9:00 am [facility]) Kenny Lisa MD [Primary Care Provider] - 01/05/17 3:15 pm Additional Instructions: Please follow-up with your primary care physician as scheduled. Please follow up with oncology as scheduled. Please resume your home medications. Please take gabapentin at night for restless legs. Please return for any new or worsening symptoms. - Diet and Activity Activity: increase activity as tolerated Diet: advance to your usual diet Interval History: Patient seen and examined at bedside. Patient complains of some restless legs at night. Otherwise she has no complaints. Patient is adamant that she wants to go home today. Hospital course: Ms. Saenz is a 86 year old female with history of atrial fibrillation, left breast mass presents with shortness of breath. The patient was initially admitted for pneumonia and possible infiltrate seen on chest x-ray. Patient's shortness of breath resolved quickly. We feel and the patient and patient's family agrees that her symptoms by anxiety. [facility] like to reenroll however after discussion with the hospice team the patient was doing so well that she no longer qualifies for hospice benefit. Given the patient's symptoms CT head and chest were performed to evaluate for possible metastatic disease that could possibly qualify her for the hospice benefit but these were negative. CT of the chest also did not reveal pneumonia. We had a long discussion with the patient and the patient's family regarding her goals of care and possible diagnosis of her left breast mass but the patient was consistent from previous visits and absolute refused any further workup or treatment. Patient was offered services including ECF placement or home health which she adamantly refuses. I spoke with oncology who recommended that the patient follow up as an outpatient to further discuss possible evaluation and treatment and appointment will be made. Benji haas is adamant that she be discharged today and does not want any further treatment. Patient will be discharged home in stable condition. - Time Spent with Patient Total time spent providing and/or coordinating discharge services: - Constitutional Vitals: Temp Pulse Resp BP Pulse Ox 97.7 F 70 18 125/64 97 12/30/16 07:44 12/30/16 07:44 12/30/16 07:44 12/30/16 07:44 12/30/16 07:44 General appearance: Present: A&O X 3, pleasant, no acute distress - Respiratory Respiratory exam: Present: CTAB. Absent: rales, rhonchi, wheezes - Cardiovascular Cardiovascular exam: Present: RRR. Absent: gallop, rubs, systolic murmur - GI/Abdominal GI/Abdominal exam: Present: normal bowel sounds, soft. Absent: distended, tenderness - Extremities Exam Extremities exam: Present: warm. Absent: pedal edema, tenderness - Neurological Exam Neurological exam: Present: alert, CN II-XII intact, oriented X3, no focal deficits - Psychiatric Psychiatric exam: Present: anxious <Bella,Fred P - Last Filed: 12/30/16 16:50> Date of Encounter: 12/30/16 Procedures/tests Complete & Pending: Procedures Performed prior 72 hours Category Date Time Status CT chest wo con [CT] Routine Cat Scan 12/29/16 10:[address] head/brain wo con [CT] Routine Cat Scan 12/29/16 10:07 Completed Date of admission: 12/28/16 08:34 Primary care physician: Kenny Lisa MD Consults: 12/29/16 11:45 Consult to Hearings Reporter [CONS] Routine Reason for SW Consult: No insurance/discharge planning Hospital course: Ms. Saenz is a 86 year old female - Time Spent with Patient Total time spent providing and/or coordinating discharge services: - Constitutional Vitals: Temp Pulse Resp BP Pulse Ox 97.7 F 70 18 125/64 92 12/30/16 07:44 12/30/16 07:44 12/30/16 09:18 12/30/16 07:44 12/30/16 09:18 - Attending Attestation I examined this patient and my medical decision-making was reviewed with the AUTOMOBILE UPHOLSTERY TRIM INSTALLER/PA/Advanced Practice Nurse/Resident Physician. I agree with the documented findings, disposition and treatment plan as described except to the extent set forth below. follow up with Oncology as outpatient.
[2016-12-30] MEDS ORDERED: Magnesium Oxide 400 MG TABLET PO SCH (09:00)
[2016-12-30] MEDS: Furosemide 40 MG TABLET PO SCH (09:23)
[2016-12-30] MEDS ORDERED: Aminoglycoside Consult 1 EACH MC ONE (12:44)
== END 2016-12-30 12:45 | disposition home or self-care (01) | DRG 880 ==
LOC: EMEROO 04:21 → 2NENU 04:21
PROVIDERS: ADMIT Internal Medicine; ATTEND Internal Medicine

== ENCOUNTER 2017-01-07 14:07 | Inpatient (IN) ==
[2017-01-07] MEDS ORDERED: *HR* HYDROmorphone (PF) 1 MG/ML SYRINGE IVP ONE ×2 (14:33→20:09)
[2017-01-07] MEDS ORDERED: Ondansetron 4 MG/2 ML VIAL IVP ONE ×2 (14:33→20:09)
[2017-01-07 16:01] LABS: Hemoglobin 10.3 g/dL (11.5-15.4); Mean Corpuscular HGB Conc 29.4 g/dL (31.6-35.5); Mean Corpuscular Hemoglobin 30.3 pg (28.0-33.3); Mean Corpuscular Volume 102.9 fL (83.0-100.0); Mean Platelet Volume 10.4 fL (9.4-12.4); Red Cell Distribution Width 15.6 % (11.5-14.5)
[2017-01-07 16:02] LABS: Platelet Count 97 K/mcL (140-400)
--- NOTE | 2017-01-07 16:04 | Emergency Department Note ---
Disposition Clinical Impression: Elevated troponin, Dehydration Fall Qualifiers: Encounter type: initial encounter Qualified Code(s): W19.XXXA - Unspecified fall, initial encounter Closed head injury Qualifiers: Encounter type: initial encounter Qualified Code(s): S09.90XA - Unspecified injury of head, initial encounter Rhabdomyolysis Qualifiers: Rhabdomyolysis type: traumatic Encounter type: initial encounter Qualified Code (s): T79.6XXA - Traumatic ischemia of muscle, initial encounter Disposition: Admitted As Inpatient Condition: Fair Referrals: Kenny Lisa MD [Primary Care Provider] - Forms: ED Satisfaction Letter Time of Disposition: 18:42 Fall HPI - General Chief Complaint: ED Fall Stated Complaint: FELL Time Seen by Provider: 01/07/17 14:15 Source: patient, family, EMS Mode of arrival: EMS Nursing Notes Reviewed: Yes Vital Signs Reviewed: Yes - History of Present Illness Pt Subjective Complaint: fall Onset (ago): hour(s) (She fell last night around midnight) Fall From: standing Fall Witnessed: no Place Fall Occurred: home Loss of Consciousness: unsure Prolonged Down Time?: yes Context: tripped/slipped, history of frequent falls Location of injury: face, hip Severity: moderate Associated symptoms (after fall): Reports: weakness (Generalized), abdominal pain (Present before the fall for quite some time). Denies: headache, neck pain - Related Data Home Medications Medication Instructions Recorded Confirmed Ibuprofen [Motrin] 400 mg PO BID PRN 12/24/16 12/28/16 Metoprolol Tartrate [Lopressor] 50 mg PO BID 12/24/16 12/28/16 Previous Rx's Medication Instructions Recorded Gabapentin [Neurontin] 300 mg PO HS #30 capsule 12/30/16 Oxazepam 30 mg PO QID PRN #120 capsule 12/30/16 levoFLOXacin [Levaquin] 750 mg PO Q48H tablet 12/30/16 levoFLOXacin [Levaquin] 750 mg PO Q48H #4 tablet 12/30/16 Allergies Allergy/AdvReac Type Severity Reaction Status Date / Time morphine AdvReac Severe severe Verified 12/28/16 04:27 headache/questionable seizure nitroglycerin AdvReac Headache Verified 12/28/16 04:27 All systems ED: reviewed and negative except as stated. ENT ED: Denies: ear pain, throat pain Cardiovascular: Denies: chest pain, palpitations Respiratory: Denies: cough, dyspnea Gastrointestinal: Reports: abdominal pain. Denies: vomiting, diarrhea Musculoskeletal: Denies: back pain, neck pain Fall PMH - Past Medical History Medical history: Reports: aortic aneurysm, atrial fibrillation, cancer, CHF, COPD, coronary artery disease, CVA, hyperlipidemia, hypertension, myocardial infarction, TIA Surgical history: Reports: appendectomy, coronary bypass (CABG) Psychiatric history: Reports: anxiety, depression - Social History Smoking Status: Former smoker Alcohol use: Reports: none Drug use: Reports: none Physical Exam - General Limitations: no limitations General appearance: alert, in no apparent distress (Calm and lying on the bed comfortably.) - Head Head exam: normocephalic, other (Patient has ecchymosis around both eyes.) - Eye Eye exam: Present: PERRL, EOMI. Absent: scleral icterus, conjunctival injection - ENT ENT exam: normal exam, normal oropharynx, mucous membranes moist, TM's normal bilaterally, normal external ear exam - Neck Neck exam: Present: normal inspection, full ROM, trachea midline. Absent: tenderness - Chest Chest inspection: Present: normal inspection, symmetric chest wall rise. Absent : tenderness - Respiratory Respiratory exam: Present: normal lung sounds bilaterally. Absent: respiratory distress, wheezes - Cardiovascular Cardiovascular exam: Present: tachycardia, irregular rhythm - Abdominal Exam Abdominal exam: Present: soft, tenderness (To the lower abdomen). Absent: distention - Extremities Exam Extremities exam: Present: tenderness (Right hip) - Neurological Exam Neurological exam: Present: alert, oriented X3 (But slow in her responses), reflexes normal. Absent: motor sensory deficit - Skin Skin exam: Present: warm, dry, other (Patient has some skin breakdown areas on the left lower leg. She has ecchymosis on the lower abdomen and a small localized area) Course Course Narrative: Patient presented with a fall at home. Circumstances around the fall are questionable. She describes tripping and but also describes weakness. There is no history of falls due to weakness. She was down for some time so we have to rule out rhabdo. We do see some skin breakdown on the lower leg on the left hand side. We will also for about brain injury and hip fracture. Imaging and labs ordered. - Reevaluation(s) Reevaluation #1: I have reexamined the patient several times and now have spoken with family members as well. ED the head is negative. There is no sign of hip fracture on imaging studies. Reexamination of the hips shows range of motion without pain. Patient is slow in her responses but does communicate well and there is no focal neurologic finding on examination. Laboratory studies shows a CPK of 1700 which is elevated but not a dramatic rhabdomyolysis picture. There is a bit of elevation of BUN and creatinine. Most concerning is his elevation of troponin at 5.7. I do not see ischemic changes on her 12-lead EKG. However this worries me that maybe the weakness was actually a myocardial issue. Patient is to be admitted to the hospital for evaluation. Time: 18:37 Reevaluation #2: Welfare Project Manager as recommended heparinization. I went back to talk with family about that just to make sure that it would be safe. I do not think the patient has any bleeding risks. She had been on blood thinners in the past due to her A. fib but was taken off them because of her age and frequent falls. On reevaluation patient was complaining more about her belly discomfort. She reports, and this is corroborated by family, that she has been having lower abdominal pain for a while. However when I examined her belly I see that there is some ecchymosis in the lower abdomen. I think to be safe I will CT her belly to make sure there is no intra-abdominal pathology before I start her on heparin. That CT is negative we will get heparin started and get the patient needed to the floor. Time: 18:39 Reevaluation #3: At this point is the end of my shift. I am turning the case over to Dr. Cuevas, the night physician. He will check the CT of the abdomen to make sure there is no bleeding going on inside the belly. Heparin will be held until a CAT scan is been evaluated. I have discussed all this with him. Time: 19:04 - Consultations Consultation #1: Dr. Baumann, hospitalist - I discussed the case with the hospitalist. He is accepted the patient for admission. He was concerned about the elevated troponin asked me to talk with cardiology about heparinization. Consultation #2: , cardiology - spoke with the broomcorn scraper. We reviewed the results and the presentation. She recommends IV heparin until the cardiac status can be figured out. Time: 18:38 Vital Signs Temperature 98.5 F 01/07/17 14:13 Pulse Rate 105 01/07/17 14:13 Respiratory Rate 22 01/07/17 14:13 Blood Pressure 173/75 01/07/17 14:13 O2 Sat by Pulse Oximetry 22 01/07/17 14:13 Temperature 98.5 F 01/07/17 14:13 Pulse Rate 114 01/07/17 18:38 Respiratory Rate 18 01/07/17 18:38 Blood Pressure 114/58 01/07/17 18:38 O2 Sat by Pulse Oximetry 96 01/07/17 18:38 Oxygen Delivery Oxygen Delivery Room Air Fall - Medical Records Medical records reviewed: Yes I reviewed the patient's medical records. - Lab Data Lab results reviewed: Yes I reviewed the patient's lab results. Result diagrams: 01/07/17 15:54 01/07/17 15:54 Lab Results 01/07/17 01/07/17 01/07/17 Range/Units 15:54 15:54 15:54 WBC 10.7 (4.3-11.1) K/mcL RBC 3.40 L (3.82-4.97) M/mcL Hgb 10.3 L (11.5-15.4) g/dL Hct 35.0 L (35.3-44.9) % MCV 102.9 H (83.0-100.0) fL MCH 30.3 (28.0-33.3) pg MCHC 29.4 L (31.6-35.5) g/dL RDW 15.6 H (11.5-14.5) % Plt Count 97 L (140-400) K/mcL MPV 10.4 (9.4-12.4) fL Seg Neutrophils % 81.0 % Band Neutrophils % 14.0 H (0-4) % Lymphocytes % 5.0 % Neutrophils # 10.2 H (1.6-8.9) K/mcL Lymphocytes # 0.5 L (0.6-4.6) K/mcL Platelet Estimate Decreased L (Normal) Sodium 143 (136-145) mEq/L Potassium 5.4 H (3.5-4.5) mEq/L Chloride 109 (98-109) mEq/L Carbon Dioxide 17 L (19-29) mEq/L BUN 35 H (7-20) mg/dL Creatinine 1.85 H (0.57-1.11) mg/dL Est GFR ( Amer) 31 L (> 60) Est GFR (Non-Af Amer) 26 L (> 60) BUN/Creatinine Ratio 19 (6-26) Glucose 153 H (70-99) mg/dL Calculated Osmolality 307 H (280-300) Calcium 9.0 (8.6-10.8) mg/dL Creatine Kinase 1775 H (29-168) Units/L Troponin I 5.74 H* (0-0.03) ng/mL Urine Color (Yellow) Urine Clarity (Clear) Urine pH (5.0-8.0) pH Units Ur Specific [place] (1.010-1.025) Urine Protein (Neg-Trace) mg/dL Urine Glucose (UA) (Normal) mg/dL Urine Ketones (Negative) mg/dL Urine Blood (Negative) Urine Nitrite (Negative) Urine Bilirubin (Negative) Urine Urobilinogen (Normal) mg/dL Ur Leukocyte Esterase (Negative) 01/07/17 Range/Units 18:45 WBC (4.3-11.1) K/mcL RBC (3.82-4.97) M/mcL Hgb (11.5-15.4) g/dL Hct (35.3-44.9) % MCV (83.0-100.0) fL MCH (28.0-33.3) pg MCHC (31.6-35.5) g/dL RDW (11.5-14.5) % Plt Count (140-400) K/mcL MPV (9.4-12.4) fL Seg Neutrophils % % Band Neutrophils % (0-4) % Lymphocytes % % Neutrophils # (1.6-8.9) K/mcL Lymphocytes # (0.6-4.6) K/mcL Platelet Estimate (Normal) Sodium (136-145) mEq/L Potassium (3.5-4.5) mEq/L Chloride (98-109) mEq/L Carbon Dioxide (19-29) mEq/L BUN (7-20) mg/dL Creatinine (0.57-1.11) mg/dL Est GFR ( Amer) (> 60) Est GFR (Non-Af Amer) (> 60) BUN/Creatinine Ratio (6-26) Glucose (70-99) mg/dL Calculated Osmolality (280-300) Calcium (8.6-10.8) mg/dL Creatine Kinase (29-168) Units/L Troponin I (0-0.03) ng/mL Urine Color Dark Yellow (Yellow) Urine Clarity Cloudy A (Clear) Urine pH 5.0 (5.0-8.0) pH Units Ur Specific [place] 1.022 (1.010-1.025) Urine Protein 100 H (Neg-Trace) mg/dL Urine Glucose (UA) Normal (Normal) mg/dL Urine Ketones Negative (Negative) mg/dL Urine Blood Large H (Negative) Urine Nitrite Negative (Negative) Urine Bilirubin Small H (Negative) Urine Urobilinogen Normal (Normal) mg/dL Ur Leukocyte Esterase Negative (Negative) - Radiology Data Radiology results reviewed: Yes I reviewed the patient's radiology results. - EKG Data EKG attestation: Yes I reviewed and interpreted this EKG. Rate: tachycardia Rhythm: A.Fib [place]/QRS: RBBB, LAHB/LAFB Interpretation: no acute changes, unchanged when compared to prior tracing (date ) (12/28/2016)
[2017-01-07 16:19] LABS: Potassium 5.4 mEq/L (3.5-4.5)
[2017-01-07 16:34] LABS: Lymphocytes # 0.5 K/mcL (0.6-4.6); Neutrophils # 10.2 K/mcL (1.6-8.9); Platelet Estimate Decreased (Normal)
[2017-01-07 18:53] LABS: Bilirubin,Urine Small (Negative); Blood,Urine Large (Negative); Clarity,Urine Cloudy (Clear); Color,Urine Dark Yellow (Yellow); Glucose,Urine (UA) Normal (Normal); Ketones,Urine Negative (Negative); Leukocyte Esterase,Urine Negative (Negative); Nitrite,Urine Negative (Negative); Protein,Urine 100 mg/dL (Neg-Trace); Specific Gravity,Urine 1.022 (1.010-1.025); Urobilinogen,Urine Normal (Normal)
[2017-01-07 18:56] LABS: Squamous Epithelial Cell,Urine Many per lpf (None-Few)
[2017-01-07 19:13] LABS: Amorphous Sediment,Urine Many (Few); Granular Casts,Urine Many per lpf (None Seen); Hyaline Casts,Urine Many per lpf (None-Few)
[2017-01-07 19:14] LABS: Bacteria,Urine Moderate per hpf (None-Few)
[2017-01-07] MEDS: 0.9 % Sodium Chloride 1,000 ML IVC ONE (20:00)
[2017-01-07] MEDS ORDERED: Acetaminophen 325 MG TABLET PO PRN (20:21)
[2017-01-07] MEDS ORDERED: Naloxone 0.4 MG/ML INJ IVP PRN (20:21)
[2017-01-07] MEDS ORDERED: Ondansetron ODT 4 MG TAB.RAPDIS SL PRN (20:21)
[2017-01-07] MEDS ORDERED: levoFLOXacin 750 MG TABLET PO SCH (20:30)
--- NOTE | 2017-01-07 20:32 | Internal Med History&Physical ---
<Olu Vang - Last Filed: 01/08/17 05:02> Date of Encounter: 01/07/17 Time of Encounter: 20:27 Assessment and Plan (1) Fall Current visit: Yes Status: Acute Patient fell at home possibly mechanical striking her forehead on her dresser. Patient states that she blacked out and is having difficulty with memory. - Main complaint is lower extremity pain, more so on the left compared to the right. -CT of the head done shows no acute intracranial abnormalities, findings compatible with age-related atrophy and mild likely chronic small vessel ischemic changes. - No acute bony injury in either hip or bony pelvis. - CT of the abdomen and pelvis demonstrates continued evidence of thoracic and abdominal aortic aneurysm, which appears similar caliber compared to the previous exam without evidence of leakage. Having said that there is evidence of hyperdensity seen in the right common iliac artery which raises the possibility of thrombus in that location. Also noted cholelithiasis, moderate bilateral pleural effusions Plan: - Fall risk - Given concerning findings on Lower extremity limb pain, lovedo reticularis and trace to absent pulses on physical examination a consult was placed to Vascular surgery and I discussed this case with Dr. Prasad. - STAT JARROD order was placed and nursing staff placed a call to the electronic systems technician, no response as of yet. Qualifiers: Encounter type: initial encounter Qualified Code(s): W19.XXXA - Unspecified fall, initial encounter (2) Rhabdomyolysis Current visit: Yes Status: Acute Patient presents with rhabdomyolysis, acute kidney injury on chronic kidney disease, CK of 1700, potassium of 5.4. The patient was found down at home after a mechanical fall striking her head. 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 CT findings as mentioned above. - Patient received 1 bolus of normal saline in the emergency department Plan: - Continue normal saline at 125 mL's per hour - Recheck CK in the morning - Monitor renal function - Monitor electrolytes Qualifiers: Rhabdomyolysis type: traumatic Encounter type: initial encounter Qualified Code(s): T79.6XXA - Traumatic ischemia of muscle, initial encounter (3) Hyperkalemia Current visit: Yes Status: Acute Elevated potassium at 5.4 in the setting of rhabdomyolysis. Plan: - IV rehydration - Calcium gluconate - Repeat CMP in the morning (4) Closed head injury Current visit: Yes Status: Acute Secondary to fall striking head on dresser. Patient has bilateral black eyes and ecchymosis around her glabella. - CT of the head was without intracranial abnormalities or abnormalities to bony structure. - Monitor mental status Qualifiers: Encounter type: initial encounter Qualified Code(s): S09.90XA - Unspecified injury of head, initial encounter (5) Dehydration Current visit: Yes Status: Acute Patient appears fluid overloaded but vascularly dry. Acute kidney injury and elevated serum osmolality in the setting of rhabdomyolysis. Plan: - Continue IV rehydration and monitor renal function. - Avendano catheter in place monitor urine output (6) Elevated troponin Current visit: Yes Status: Acute Patient presented with elevated troponin of 5.7 with known coronary artery disease, peripheral artery disease, previous CABG. Patient without chest pain or palpitations. - EKG demonstrates right bundle branch block in the setting of atrial fibrillation with rapid ventricular rates and left axis deviation. No significant ST depressions or elevations appreciated. CYNDIE score of 4 points with a 20% risk at 14 days of all cause mortality. Plan: - Start heparin drip per ACS protocol - Aspirin 325, continue beta lisa, statin, morphine and pain control. - Trend troponins 3 (7) Acute CHF (congestive heart failure) Current visit: No Status: Acute Patient has known systolic heart failure with an EF around 30%. Clinically patient has diminished breath sounds bilateral some mild JVD. - Currently will require IV fluids for rhabdomyolysis. - We will continue to monitor volume status and optimize cardiac medications - Diuresis and patient is stable. - Nothing by mouth now - Daily weights, strict intake and output monitoring Qualifiers: Congestive heart failure type: unspecified congestive heart failure type Qualified Code(s): I50.9 - Heart failure, unspecified (8) Weakness Current visit: No Status: Acute Likely secondary to mechanical fall/injury and frail elderly person. (9) Essential hypertension Current visit: No Status: Chronic Patient has a known history of hypertension, continue home antihypertensives. (10) Left breast mass Current visit: No Status: Chronic Patient has known left breast mass, lesion and family aware and plan not to do any further interventions or workup. (11) Thoracic aortic aneurysm Current visit: No Status: Chronic Appreciated on CT of the abdomen and pelvis, stable no signs of leakage. Continue to monitor. Qualifiers: Presence of rupture: without rupture Qualified Code(s): I71.2 - Thoracic aortic aneurysm, without rupture (12) Abdominal aneurysm Current visit: Yes Status: Acute Appreciated on CT of the abdomen and pelvis, stable no signs of leakage. Continue to monitor. (13) Atrial fibrillation Current visit: Yes Status: Acute Chronic hx of atrial fibrillation. Not on chronic anticoagulation. Plan: - Continue rate control - No additional anticoagulation . - High fall risk Qualifiers: Qualified Code(s): I48.91 - Unspecified atrial fibrillation (14) DVT prophylaxis Current visit: No Status: Acute Patient on Heparin Drip. Internal Medicine - H&P: HPI Chief complaint: fall Admitted From: Emergency Dept Plans for Post Hospital Care: Home History of present illness: Ms. Saenz is a 86 year old female known thoracic and abdominal aneurysms, Systolic HF, hypertension, atrial fibrillation, breast mass left side, recent hospitalization was admitted to the general medical floor after falling at home. Patient said she got up this morning unknown time while ambulating from bed and fell forward hitting her head on the dresser and blacking out. She felt that the fall was mechanical from tripping. She does not remember how long she was down how long she was out but was found by her daughter around 12: 30 this afternoon. Family had difficulty reaching her and usually check up on her daily. She lives alone by herself and does not ambulate with any assistive devices. She is not on any anticoagulation. Upon examination the patient was having difficulty with memory and timeline. Family was at bedside and said they found her laying on the floor all bruised up and with cuts on her left lower extremity. She is usually alert and oriented 3 on a normal day. The patient continues to complain about bilateral lower extremity pain and lower abdominal discomfort. She denies any headache, change in vision, neck pain, chest pain or palpitations or chest pressure. She denies any nausea or vomiting or change in bowel habitus. The patient does have a breast mass on her left side which she has not going to do any further workup for. Past Med Surg Social Fam HX - Past Medical History Medical history: aortic aneurysm, atrial fibrillation, cancer, CHF, COPD, coronary artery disease, CVA, hyperlipidemia, hypertension, myocardial infarction, TIA Psychiatric history: anxiety, depression - Past Surgical History Surgical History: appendectomy, coronary bypass (CABG) - Social History Smoking Status: Former smoker Smokeless Tobacco Status: No Alcohol use: none Drug use: none - Family History Brother Family Member Ethnicity: Non- Living Status: Hx Family Cancer: Yes (Throat) Father Adopted: No Family Member Ethnicity: Non- Living Status: Hx Family Cardiac Disorders: Yes (HD) Hx Family Respiratory Disorders: Yes (Emphysema) Hx Family Cancer: Yes (MOTHER COLON CA) Mother Family Member Ethnicity: Non- Living Status: Internal Medicine - H&P: Meds Ibuprofen [Motrin] 400 mg PO BID PRN 12/24/16 [History] Metoprolol Tartrate [Lopressor] 50 mg PO BID 12/24/16 [History] Gabapentin [Neurontin] 300 mg PO HS #30 capsule 12/30/16 [Rx] Oxazepam 30 mg PO QID PRN #120 capsule 12/30/16 [Rx] levoFLOXacin [Levaquin] 750 mg PO Q48H tablet 12/30/16 [Rx] levoFLOXacin [Levaquin] 750 mg PO Q48H #4 tablet 12/30/16 [Rx] Allergies morphine Adverse Reaction (Severe, Verified 12/28/16 04:27) severe headache/questionable seizure nitroglycerin Adverse Reaction (Verified 12/28/16 04:27) Headache All Systems PM: A 10-system review of systems was performed and is negative for pertinent findings except as documented above in the HPI. - Constitutional Constitutional: malaise, weakness - EENT Eyes: no change in vision, no discharge, no pain, no photophobia Ears: no ear discharge, no ear pain, no tinnitus Nose, mouth and throat: no dysphagia, no nasal discharge, no neck pain, no sore throat - Breasts Breasts: mass - Cardiovascular Cardiovascular ROS IM: orthopnea, no chest pain, no diaphoresis, no dyspnea, no lightheadedness, no palpitations, no syncope - Respiratory Respiratory: no cough, no dyspnea, no wheezing, no excessive phlegm production - Gastrointestinal Gastrointestinal: as per HPI, no abdominal pain, no diarrhea, no hematemesis, no hematochezia, no melena, no nausea, no vomiting - Genitourinary Genitourinary: no change in urinary stream, no dysuria, no flank pain, no hematuria - Musculoskeletal Musculoskeletal ROS IM: no numbness, no tingling - Integumentary Integumentary IM: no rash, no unusual bruising Additional comments: Left lower extremity skin abrasion from fall. - Neurological Neurological ROS: no confusion, no convulsions, no focal weakness, no numbness, no tingling, no tremor(s) - Psychiatric Psychiatric: confusion - Hematologic/Lymphatic Hematologic/Lymphatic: no easy bruising - Constitutional Vitals: Temp Pulse Resp BP Pulse Ox 98.5 F 123 16 168/102 96 01/07/17 14:13 01/07/17 20:19 01/07/17 20:19 01/07/17 20:19 01/07/17 20:19 Exam: General: Patient alert, awake, oriented 3, interactive, in no acute distress HEENT: Normocephalic, ecchymosis on the glabella, bilateral black eyes, pupils equal reactive to light, nasal cavity patent and open septum median position, oral mucosa moist, neck supple trachea midline no palpable lymphadenopathy, no thyromegaly. Mild JVD Chest: Symmetric bilateral correlating with respiratory effort, effort nonlabored. Cardiac: Irregularly irregular rate and rhythm. no bruits appreciated bilateral carotids, Radial pulses 2+ bilateral, posterior tibial and dorsal pedal pulses trace to 1 bilateral. Respiratory: Diminished breath sounds bilateral lung bases. Abdomen: Soft, mild tenderness to palpation of the lower abdominal wall, ecchymosis across the lower abdominal wall, fullness appreciated upon palpation of the mid-epigastric region. Extremities: Symmetric bilateral, livedo reticularis bilateral lower extremities , cold to palpation, trace pulses, ecchymosis posterior hamstring of the left lower extremity, skin tears to the left lower extremity lateral side. Neurologic: Face symmetric, muscle strength symmetric bilateral upper extremities, Lower extremities had minimal to absent movement and loss of sensation to palpation. Internal Med - H&P Results - Labs CBC & Chem 7: 01/08/17 03:37 01/08/17 03:37 <Dwight Shah - Last Filed: 01/08/17 06:02> Date of Encounter: 01/08/17 Internal Medicine - H&P: HPI History of present illness: Ms. Saenz is a 86 year old female All Systems PM: A 10-system review of systems was performed and is negative for pertinent findings except as documented above in the HPI. - Constitutional Vitals: Temp Pulse Resp BP Pulse Ox 97.8 F 108 16 130/69 98 01/08/17 03:51 01/08/17 03:51 01/08/17 03:51 01/08/17 03:51 01/08/17 03:51 Internal Med - H&P Results - Labs CBC & Chem 7: 01/08/17 03:37 01/08/17 03:37 Labs: Short CBC 01/07/17 01/07/17 01/08/17 Range/Units 22:18 23:10 03:37 WBC 7.5 9.3 8.9 (4.3-11.1) K/mcL Hgb 9.8 L 9.8 L 9.6 L (11.5-15.4) g/dL Hct 33.1 L 32.9 L 32.2 L (35.3-44.9) % Plt Count 82 L 83 L 90 L (140-400) K/mcL Neutrophils # 7.6 (1.6-8.9) K/mcL BMP 01/07/17 01/08/17 23:10 03:37 Sodium 141 141 Potassium 6.9 H* D 7.4 H* Chloride 112 H 113 H Carbon Dioxide 15 L 14 L BUN 37 H 39 H Creatinine 1.92 H 2.05 H Glucose 149 H 138 H Calcium 8.1 L 8.0 L Cardiac Enzymes 01/07/17 01/08/17 Range/Units 22:18 03:37 Troponin I 11.78 H* 16.27 H* (0-0.03) ng/mL Liver Function 01/08/17 Range/Units 03:37 Total Bilirubin 1.3 H (0.2-1.2) mg/dL AST 391 H (5-34) Units/L ALT 164 H (0-55) Units/L Alkaline Phosphatase 98 (38-126) Units/L Albumin 3.0 L (3.5-5.0) g/dL - ABG Interpretation ABG results: 01/07/17 23:01 ABG pH 7.22 L ABG pCO2 40 ABG pO2 92 ABG HCO3 16.4 L ABG Total CO2 17.6 L ABG O2 Saturation 95 ABG Base Excess -10.6 L - Attending Attestation I examined this patient and my medical decision-making was reviewed with the Resident Physician. I agree with the documented findings, disposition and treatment plan as described
[2017-01-07] MEDS ORDERED: *HR* Heparin 5,000 UNIT/ML VIAL IVP PRN ×2 (21:06)
[2017-01-07] MEDS ORDERED: *HR* Heparin 5,000 UNIT/ML VIAL IVP ONE (21:06)
[2017-01-07] MEDS ORDERED: Heparin 25,000 UNIT/500 ML D5W 25,000 UNIT/500 ML MLS IVC SCH (21:15)
[2017-01-07 22:30] LABS: Hematocrit 33.1 % (35.3-44.9); Hemoglobin 9.8 g/dL (11.5-15.4); Immature Platelets 4.8 % (1.1-6.1); Mean Corpuscular HGB Conc 29.6 g/dL (31.6-35.5); Mean Corpuscular Hemoglobin 30.3 pg (28.0-33.3); Mean Corpuscular Volume 102.5 fL (83.0-100.0); Mean Platelet Volume 11.3 fL (9.4-12.4); Red Blood Count 3.23 M/mcL (3.82-4.97); Red Cell Distribution Width 15.8 % (11.5-14.5)
[2017-01-07] MEDS ORDERED: 0.9 % Sodium Chloride 250 ML ONE (22:41)
[2017-01-07] MEDS ORDERED: Aspirin 325 MG TABLET PO ONE (22:44)
[2017-01-07] MEDS ORDERED: 0.9 % Sodium Chloride 1,000 ML ONE (22:55)
[2017-01-07 23:22] LABS: ABG Base Excess -10.6 mEq/L (-2.0 to 3.0); ABG HCO3 16.4 mEQ/L (21-27); ABG Oxygen Saturation 95 % (95-98); ABG PCO2 40 mmHg (35-45); ABG PH 7.22 pH Units (7.32-7.45); ABG PO2 92 mmHg (85-104); ABG TCO2 17.6 mEq/L (20-26); Blood Gas FiO2 30 %; Blood Gas Liter Flow 2.5 L/MIN
[2017-01-07 23:32] LABS: Mean Platelet Volume 11.3 fL (9.4-12.4)
[2017-01-07 23:34] LABS: Hematocrit 32.9 % (35.3-44.9); Hemoglobin 9.8 g/dL (11.5-15.4); Immature Platelets 5.5 % (1.1-6.1); Mean Corpuscular HGB Conc 29.8 g/dL (31.6-35.5); Mean Corpuscular Hemoglobin 30.2 pg (28.0-33.3); Mean Corpuscular Volume 101.5 fL (83.0-100.0); Red Blood Count 3.24 M/mcL (3.82-4.97); Red Cell Distribution Width 15.7 % (11.5-14.5)
[2017-01-07 23:45] LABS: Calcium 8.1 mg/dL (8.6-10.8)
[2017-01-07 23:47] LABS: Potassium 6.9 mEq/L (3.5-4.5)
[2017-01-07] MEDS ORDERED: Calcium Gluconate 1,000 MG in D5% in Water 100 ML IVPB ONE (23:56)
[2017-01-08] MEDS ORDERED: 0.9 % Sodium Chloride 1,000 ML ONE ×2 (00:11→07:00)
[2017-01-08] MEDS: 0.9 % Sodium Chloride 1,000 ML IVC ONE (00:30)
[2017-01-08 00:39] LABS: INR 1.7; Prothrombin Time 19.1 Seconds (9.4-12.1)
[2017-01-08 00:41] LABS: Activated Partial Thrombo Time 180.5 Seconds (26.0-36.0)
[2017-01-08 01:00] LABS: Heparin anti-factor XA UFH 0.8 IU/mL (0.30-0.70)
[2017-01-08] MEDS ORDERED: Vancomycin 750 MG in D5% in Water 250 ML IVPB SCH (01:00)
[2017-01-08] MEDS ORDERED: *HR* HYDROmorphone (PF) 1 MG/ML SYRINGE IVP ONE ×2 (02:06→04:41)
[2017-01-08] MEDS ORDERED: Sodium Bicarbonate 50 MEQ in 0.45 % Sodium Chloride 1,000 ML IVC SCH (02:15)
[2017-01-08] MEDS ORDERED: *HR* HYDROmorphone (PF) 1 MG/ML SYRINGE ONE (02:18)
[2017-01-08] MEDS ORDERED: Vancomycin 1,000 MG in D5% in Water 250 ML IVPB ONE (02:59)
[2017-01-08] MEDS ORDERED: Heparin 25,000 UNIT/500 ML D5W 25,000 UNIT/500 ML MLS IVC SCH (03:00)
[2017-01-08 03:56] LABS: Basophils % 0.1 %; Hematocrit 32.2 % (35.3-44.9); Hemoglobin 9.6 g/dL (11.5-15.4); Mean Corpuscular HGB Conc 29.8 g/dL (31.6-35.5); Nucleated Red Blood Cells 0.2 /100 WBC (0); Red Cell Distribution Width 15.9 % (11.5-14.5)
[2017-01-08 03:58] LABS: Immature Granulocytes % 0.8 % (0-4); Immature Platelets 5.7 % (1.1-6.1); Lymphocytes # 0.6 K/mcL (0.6-4.6); Lymphocytes % 6.2 %; Mean Corpuscular Hemoglobin 30.6 pg (28.0-33.3); Mean Corpuscular Volume 102.5 fL (83.0-100.0); Mean Platelet Volume 11.3 fL (9.4-12.4); Monocytes # 0.7 K/mcL (0.0-1.3); Monocytes % 7.6 %; Neutrophils # 7.6 K/mcL (1.6-8.9); Red Blood Count 3.14 M/mcL (3.82-4.97); Segmented Neutrophils % 85.3 %
[2017-01-08 04:10] LABS: Activated Partial Thrombo Time 85.3 Seconds (26.0-36.0); INR 1.7; Prothrombin Time 18.5 Seconds (9.4-12.1)
[2017-01-08 04:23] LABS: Albumin/Globulin Ratio 1.1 (1.1-2.2); Bilirubin,Total 1.3 mg/dL (0.2-1.2); Globulin 2.8 g/dL (2.4-3.5); Total Protein 5.8 g/dL (6.0-8.3)
[2017-01-08 04:26] LABS: Potassium 7.4 mEq/L (3.5-4.5)
[2017-01-08 04:28] LABS: Platelet Count 90 K/mcL (140-400)
[2017-01-08 04:29] LABS: Platelet Estimate Decreased (Normal)
[2017-01-08 04:30] LABS: Polychromasia 1+ (Not Present)
[2017-01-08] MEDS ORDERED: Calcium Gluconate 2,000 MG in D5% in Water 100 ML IVPB ONE (04:44)
[2017-01-08] MEDS ORDERED: Insulin Human Regular 10 UNIT in 0.9 % Sodium Chloride 10 ML IV ONE (04:46)
[2017-01-08] MEDS ORDERED: *HR* Dextrose 50 % in Water (Syg) 50 ML SYRINGE IVP ONE (04:51)
--- NOTE | 2017-01-08 05:20 | Event Note ---
Date of Encounter: 01/08/17 Time of Encounter: 04:30 I contacted Mrs. Saenz's son Abraham Saenz around 12:30 this morning regarding his mother's condition and that she was poorly responsive and appeared to be progressively getting worse with worsening potassium, lactic acidosis and elevated troponins. He said that his mother would not want to go through significant or heroic measures and would not want intubation or resuscitation. He did request that we continue with supportive cares and treatment and he would come in to be at his mother's bedside. I was able to sit down with Mrs. Saenz's son and discuss her current condition. He requested that palliative care joining the care team and he would further discuss further interventions with his sister in the morning. Around 4:30 AM after receiving updated laboratory results and undergoing significant interventions Mrs. Saenz's condition demonstrated further deterioration. He requested that she not undergo any surgeries or be placed on hemodialysis as she would not want such interventions. He discussed how his mother have been suffering for quite some time with her multiple medical conditions. He is planning to talk with his sister this morning around 5:30, and we will be available to talk with the palliative care team.
[2017-01-08 07:31] VITALS: BP 157/78
--- NOTE | 2017-01-08 07:41 | Discharge Summary ---
Date of Encounter: 01/08/17 Time of Encounter: 07:39 - Discharge Diagnosis (1) Acute bilateral deep vein thrombosis (DVT) of iliac veins of lower extremities Priority: Primary Status: Acute (2) Ischemia of both lower extremities Priority: Primary Status: Acute (3) Hyperkalemia Priority: Primary Status: Acute (4) Rhabdomyolysis Priority: Secondary Status: Acute Qualifiers: Rhabdomyolysis type: traumatic Encounter type: subsequent encounter Qualified Code(s): T79.6XXD - Traumatic ischemia of muscle, subsequent encounter - Discharge Medications Home Medications: HYDROmorphone [Dilaudid] 1 mg IVP Q1H PRN #0 syringe 01/08/17 [Rx] Heparin 2,000 unit IVP Q6H PRN #0 vial 01/08/17 [Rx] Heparin 4,000 unit IVP Q6HR PRN #0 vial 01/08/17 [Rx] Naloxone [Narcan] 0.4 mg IVP Q2MIN PRN #0 inj 01/08/17 [Rx] Ondansetron ODT [Zofran ODT] 4 mg SL Q8HR PRN #0 tab.rapdis 01/08/17 [Rx] Allergies/Adverse Reactions: Allergies morphine Adverse Reaction (Severe, Verified 12/28/16 04:27) severe headache/questionable seizure nitroglycerin Adverse Reaction (Verified 12/28/16 04:27) Headache Date of admission: 01/07/17 20:10 Primary care physician: Kenny Lisa MD Consults: 01/07/17 20:53 Consult to Vascular Surgery [CONS] Routine Consulting Provider: Vascular Surgery [place] Reason for Consult: right illiac artery occlusion Call Completed: Yes 01/08/17 06:26 Consult to Cardiology [CONS] Routine Comment: Consulting Provider: Cardiology [facility] Reason for Consult: elevated troponin levels, called from ED Call Completed: Yes Consult to Nephrology [CONS] Stat Consulting Provider: [facility]ARMIN/LIDYA Reason for Consult: hyperkalemia, worsening renal function in rhabdomyalysis Call Completed: Yes 01/08/17 08:00 Consult to Palliative Care [CONS] Routine Comment: Consulting Provider: Palliative Care [facility] Reason for Consult: Deteriorating condition, multiple admissions. Call Completed: No Discharging clinician: Tavo Morris Anticipated date of discharge: 01/08/17 - Patient Status Disposition: Hospice - Medical Facility Condition: Critical Functional capacity at discharge: bed bound Overall status at discharge: other - Discharge Instructions Follow Up With: Kenny Lisa MD [Primary Care Provider] - - Diet and Activity Activity: other Diet: other Hospital course: Ms. Saenz is a 86 year old female - Time Spent with Patient Total time spent providing and/or coordinating discharge services: - Constitutional Vitals: Temp Pulse Resp BP Pulse Ox 98.3 F 120 22 157/78 96 01/08/17 07:30 01/08/17 07:30 01/08/17 07:30 01/08/17 07:30 01/08/17 07:30 General appearance: Present: A&O X 0 - Cardiovascular Cardiovascular exam: Present: irregular rhythm, tachycardia - Extremities Exam Additional comments: B/L lower extremity ischemia - Neurological Exam Neurological exam: Present: altered
[2017-01-08] MEDS ORDERED: *HR* HYDROmorphone 2 MG/ML SYRINGE IVP PRN (07:44)
[2017-01-08] MEDS ORDERED: Cefepime HCl 2,000 MG in D5% in Water (Mini-Bag+) 100 ML IVPB SCH (08:00)
--- NOTE | 2017-01-08 08:14 | Palliative - Consult Note ---
Date of Encounter: 01/08/17 Time of Encounter: 07:45 - Assessment and Plan (1) Acute bilateral deep vein thrombosis (DVT) of iliac veins of lower extremities Current Visit: Yes Status: Acute Assessment and plan: Patient has been on a heparin drip, we will transition off this as the patient has opted for is opting for comfort care only. (2) Atrial fibrillation Current Visit: Yes Status: Acute Assessment and plan: Rate is well-controlled, continue to watch Qualifiers: Qualified Code(s): I48.91 - Unspecified atrial fibrillation (3) Closed head injury Current Visit: Yes Status: Acute Assessment and plan: CT scan negative for bleed negative for fracture, continue to watch pain medication as needed. Qualifiers: Encounter type: initial encounter Qualified Code(s): S09.90XA - Unspecified injury of head, initial encounter (4) Elevated troponin Current Visit: Yes Status: Acute Assessment and plan: Probable non-ST elevation PA, continue to watch patient has opted for comfort care only no further aggressive care will be undertaken. (5) Goals of care, counseling/discussion Current Visit: No Status: Acute Assessment and plan: Patient is now comfort care only. Patient's family has asked for this consideration. The patient does meet criteria for inpatient hospice care and will be transitioned to the hospitalist team this morning. We admitted the patient to hospice and contacted hospice area and patient will be observed for the next couple days to see how she does, and then consider either transition home or to long-term. (6) Ischemia of both lower extremities Current Visit: Yes Status: Acute Assessment and plan: Moose reticularis is noted to both legs "legs are cool to the touch and pulses are not palpable. This is probably due to when acute thrombotic event either in the aorta or in the iliacs. No further treatment will be undertaken as the family does not wish to consider any Palliative-CN HPI - Data of Consult Patient: known to practice within the last 3 years Requesting Physician: Tavo Morris DO Primary Care Provider: Kenny Lisa MD - Consult Narrative Palliative Care/Comfort Measures: Palliative care Reason for consult: Desire for hospice care History of present illness: Ms. Saenz is a 86 year old female History of heart disease, comes in status post a fall threatened a myelolysis hyperkalemia ration closed head injury elevated troponin consistent with a non- ST elevation PA and extremely poor circulation in her legs which is felt to be secondary to a possible clot in the aorta. Patient is well known to me from previous experiences with her with hospice, he believes that she tripped and fell and hit her head on the dresser. Unknown if she had any discharge or any chest discomfort prior to this occurring. She does not recall. Her sensorium has waxed and waned. Her initial workup it was discussed with she and her family mostly her family they opted for comfort measures only. She was noted to have extreme arterial insufficiency in the legs, rhabdomyolysis and worsening kidney function and we did not wish to proceed with any dialysis, wish to proceed with any surgery, for measures only. In wish to be reassessed for hospice eligibility. Palliative was consulted regarding hospice eligibility. At this time the patient is basically nonverbal and medications appear to be working effectively, she does not appear to be any distress. CC: DO beck Carrasco Past Med Surg Social Fam HX - Past Medical History Medical history: aortic aneurysm, atrial fibrillation, cancer, CHF, COPD, coronary artery disease, CVA, hyperlipidemia, hypertension, myocardial infarction, TIA Psychiatric history: anxiety, depression - Past Surgical History Surgical History: appendectomy, coronary bypass (CABG) - Social History Smoking Status: Former smoker Smokeless Tobacco Status: No Alcohol use: none Drug use: none - Family History Brother Family Member Ethnicity: Non- Living Status: Hx Family Cancer: Yes (Throat) Father Adopted: No Family Member Ethnicity: Non- Living Status: Hx Family Cardiac Disorders: Yes (HD) Hx Family Respiratory Disorders: Yes (Emphysema) Hx Family Cancer: Yes (MOTHER COLON CA) Mother Family Member Ethnicity: Non- Living Status: Medications and Allergies HYDROmorphone [Dilaudid] 1 mg IVP Q1H PRN #0 syringe 01/08/17 [Rx] Heparin 2,000 unit IVP Q6H PRN #0 vial 01/08/17 [Rx] Heparin 4,000 unit IVP Q6HR PRN #0 vial 01/08/17 [Rx] Naloxone [Narcan] 0.4 mg IVP Q2MIN PRN #0 inj 01/08/17 [Rx] Ondansetron ODT [Zofran ODT] 4 mg SL Q8HR PRN #0 tab.rapdis 01/08/17 [Rx] Allergies morphine Adverse Reaction (Severe, Verified 12/28/16 04:27) severe headache/questionable seizure nitroglycerin Adverse Reaction (Verified 12/28/16 04:27) Headache ROS unobtainable: due to mental status Palliative Care-Exam - Constitutional Vitals: Temp Pulse Resp BP Pulse Ox 98.3 F 120 22 157/78 96 01/08/17 07:30 01/08/17 07:30 01/08/17 07:30 01/08/17 07:30 01/08/17 07:30 General appearance: Present: mild distress (He is to have some discomfort, patient is getting pain medications as we speak) - Head Head Exam: Absent: atraumatic, normal inspection (There is wide amount of ecchymoses noted on the patient's face from a fall last night.) - Eye Eye exam: Absent: normal appearance (Tony to fall) - ENT ENT exam: Present: mucous membranes moist - Respiratory Respiratory exam: Present: decreased breath sounds - Cardiovascular Cardiovascular exam: Present: irregular rhythm - GI/Abdominal Exam GI/Abdominal exam: Present: normal bowel sounds, soft. Absent: tenderness - Catheter Type: Urethral (Avendano) - Extremities Exam Extremities exam: Absent: normal inspection (Very poor pulses if any ongoing is noted to both legs in tears to the left lower extremity.) - Neurological Exam Neurological exam: Present: altered - Psychiatric Psychiatric exam: Absent: agitated, anxious - Skin Skin exam: Present: dry, mottled (Livedo reticularis to both legs). Absent: warm Internal Medicine - CN: Reslt - Labs CBC & Chem 7: 01/08/17 03:37 01/08/17 03:37 Labs: Short CBC 01/07/17 01/07/17 01/08/17 Range/Units 22:18 23:10 03:37 WBC 7.5 9.3 8.9 (4.3-11.1) K/mcL Hgb 9.8 L 9.8 L 9.6 L (11.5-15.4) g/dL Hct 33.1 L 32.9 L 32.2 L (35.3-44.9) % Plt Count 82 L 83 L 90 L (140-400) K/mcL Neutrophils # 7.6 (1.6-8.9) K/mcL BMP 01/07/17 01/08/17 23:10 03:37 Sodium 141 141 Potassium 6.9 H* D 7.4 H* Chloride 112 H 113 H Carbon Dioxide 15 L 14 L BUN 37 H 39 H Creatinine 1.92 H 2.05 H Glucose 149 H 138 H Calcium 8.1 L 8.0 L Cardiac Enzymes 01/07/17 01/08/17 Range/Units 22:18 03:37 Troponin I 11.78 H* 16.27 H* (0-0.03) ng/mL Liver Function 01/08/17 Range/Units 03:37 Total Bilirubin 1.3 H (0.2-1.2) mg/dL AST 391 H (5-34) Units/L ALT 164 H (0-55) Units/L Alkaline Phosphatase 98 (38-126) Units/L Albumin 3.0 L (3.5-5.0) g/dL - ABG Interpretation ABG results: ABG ABG pH 7.22 pH Units (7.32-7.45) L 01/07/17 23:01 ABG pCO2 40 mmHg (35-45) 01/07/17 23:01 ABG pO2 92 mmHg (85-104) 01/07/17 23:01 ABG O2 Saturation 95 % (95-98) 01/07/17 23:01 PT/INR, D-dimer PT 18.5 Seconds (9.4-12.1) H 01/08/17 03:37 Consult Discharge Plan - Plan Referrals: Kenny Lisa MD [Primary Care Provider] - Palliative Quality Palliative Quality: Screen for Code Status: Yes, Screen for Goals of Care: Yes, Screen for Pain: Yes, If Pain Regimen Started, Initiate Bowel Regimen: Yes, Screen for Nausea/Vomitting: Yes Code Status: 01/07/17 23:12 Resuscitation Status: Active [RES] Routine Comment: Resuscitation Status: [id number]
[2017-01-08] MEDS ORDERED: Pantoprazole 40 MG VIAL IVP SCH (09:00)
--- NOTE | 2017-01-08 09:24 | Pallative History & Physical ---
Date of Encounter: 01/08/17 Time of Encounter: 09:23 Assessment and Plan (1) Abdominal aneurysm Current visit: Yes Status: Acute Probable acute thrombotic event either the abdominal aorta, or the iliacs resulting in livedo reticularis in both legs poor pulses palpable at all and the legs are cool to touch. The patient is opted for comfort care only and there was no intervention all other interventions have stopped. U comfort meds. (2) Atrial fibrillation Current visit: Yes Status: Acute Under good control at this time continue observation. Patient is for care only at this time. Qualifiers: Qualified Code(s): I48.91 - Unspecified atrial fibrillation (3) Elevated troponin Current visit: Yes Status: Acute Acute event, non-ST elevation VT. The patient has opted for comfort measures only and general inpatient hospice care will not investigate this further, however this does to do basis for real re-defecation for hospice. (4) Goals of care, counseling/discussion Current visit: No Status: Acute Patient is DO NOT RESUSCITATE Comfort Care only. She has opted for general inpatient hospice care continue to watch for pain issues. The patient will not be rather evaluated with regards to rhabdomyolysis and complete renal failure is anticipated. (5) Hyperkalemia Current visit: Yes Status: Acute This is probably a result of the rhabdomyolysis and acute renal failure, not be treated any furthers the patient is opted for comfort care measures only. (6) Ischemic cardiomyopathy Current visit: No Status: Chronic History of the same, and now with a non-ST elevation VT. He is the basis for hospice admission. Internal Medicine - H&P: HPI Admitted From: Hospital to Hospital Transfer Plans for Post Hospital Care: Hospice - Home History of present illness: Ms. Saenz is a 86 year old female Patient is admitted to general inpatient hospice service after a fall last night probably resulted from a non-ST elevation VT. The patient does have a history of heart disease for which she had been hospice in the past. Her heart disease did not Progress and she ended up revoking hospice, has however had 2 other hospitalizations since evoking. Appears the patient fell last night possibly as a consequence of non-ST elevation VT. Although there is a great deal of facial trauma there is no fractures, off tissue damage only. However the patient did have a rhabdomyolysis with acute renal failure as well as what appears to be an acute thrombotic event in her aorta or iliacs resulting in livedo reticularis to both legs with poor pulses cool extremities. Patient's family stated that he did not wish to consider dialysis, they did not wish to consider surgery they wanted comfort measures only. As the patient does have a history of heart disease and was hospice eligible in the past and now has had another probable VT as well as an acute thrombotic event including renal failure the patient is deemed appropriate for hospice on the general inpatient service and will be treated as such. He is comfortable at this time with medications, however she is relatively unresponsive patient's history is coming from the medical record. Past Med Surg Social Fam HX - Past Medical History Medical history: aortic aneurysm, atrial fibrillation, cancer, CHF, COPD, coronary artery disease, CVA, hyperlipidemia, hypertension, myocardial infarction, TIA Psychiatric history: anxiety, depression - Past Surgical History Surgical History: appendectomy, coronary bypass (CABG) - Social History Smoking Status: Former smoker Smokeless Tobacco Status: No Alcohol use: none Drug use: none - Family History Brother Family Member Ethnicity: Non- Living Status: Hx Family Cancer: Yes (Throat) Father Adopted: No Family Member Ethnicity: Non- Living Status: Hx Family Cardiac Disorders: Yes (HD) Hx Family Respiratory Disorders: Yes (Emphysema) Hx Family Cancer: Yes (MOTHER COLON CA) Mother Family Member Ethnicity: Non- Living Status: Internal Medicine - H&P: Meds HYDROmorphone [Dilaudid] 1 mg IVP Q1H PRN #0 syringe 01/08/17 [Rx] Heparin 2,000 unit IVP Q6H PRN #0 vial 01/08/17 [Rx] Heparin 4,000 unit IVP Q6HR PRN #0 vial 01/08/17 [Rx] Naloxone [Narcan] 0.4 mg IVP Q2MIN PRN #0 inj 01/08/17 [Rx] Ondansetron ODT [Zofran ODT] 4 mg SL Q8HR PRN #0 tab.rapdis 01/08/17 [Rx] Allergies morphine Adverse Reaction (Severe, Verified 12/28/16 04:27) severe headache/questionable seizure nitroglycerin Adverse Reaction (Verified 12/28/16 04:27) Headache ROS unobtainable: due to mental status Palliative Care-Exam - Constitutional Vitals: Temp Pulse Resp BP Pulse Ox 98.3 F 120 22 157/78 96 01/08/17 07:30 01/08/17 07:30 01/08/17 07:30 01/08/17 07:30 01/08/17 07:30 General appearance: Present: no acute distress - Head Head Exam: Absent: atraumatic, normal inspection (Large amounts ecchymoses on on the face secondary to fall) - Eye Eye exam: Absent: normal appearance (Secondary to fall) - ENT ENT exam: Present: mucous membranes moist - Respiratory Respiratory exam: Present: decreased breath sounds (But equal) - Cardiovascular Cardiovascular exam: Present: irregular rhythm - GI/Abdominal Exam GI/Abdominal exam: Present: normal bowel sounds, soft. Absent: tenderness - Catheter Type: Urethral (Avendano) - Extremities Exam Extremities exam: Absent: normal capillary refill, normal inspection, pedal edema, tenderness (She has bilateral livedo reticularis limbs are cool to the touch and pulses are not palpable) - Neurological Exam Neurological exam: Present: altered - Psychiatric Psychiatric exam: Absent: agitated, anxious - Skin Skin exam: Present: dry, mottled (Moose reticularis is noted on both legs the legs are cool to the touch as are not palpable). Absent: warm Internal Medicine - H&P: Reslt - Labs CBC & Chem 7: 01/08/17 03:37 01/08/17 03:37 Labs: Short CBC 01/07/17 01/07/17 01/08/17 Range/Units 22:18 23:10 03:37 WBC 7.5 9.3 8.9 (4.3-11.1) K/mcL Hgb 9.8 L 9.8 L 9.6 L (11.5-15.4) g/dL Hct 33.1 L 32.9 L 32.2 L (35.3-44.9) % Plt Count 82 L 83 L 90 L (140-400) K/mcL Neutrophils # 7.6 (1.6-8.9) K/mcL BMP 01/07/17 01/08/17 23:10 03:37 Sodium 141 141 Potassium 6.9 H* D 7.4 H* Chloride 112 H 113 H Carbon Dioxide 15 L 14 L BUN 37 H 39 H Creatinine 1.92 H 2.05 H Glucose 149 H 138 H Calcium 8.1 L 8.0 L Cardiac Enzymes 01/07/17 01/08/17 Range/Units 22:18 03:37 Troponin I 11.78 H* 16.27 H* (0-0.03) ng/mL Liver Function 01/08/17 Range/Units 03:37 Total Bilirubin 1.3 H (0.2-1.2) mg/dL AST 391 H (5-34) Units/L ALT 164 H (0-55) Units/L Alkaline Phosphatase 98 (38-126) Units/L Albumin 3.0 L (3.5-5.0) g/dL - ABG Interpretation ABG results: 01/07/17 23:01 ABG pH 7.22 L ABG pCO2 40 ABG pO2 92 ABG HCO3 16.4 L ABG Total CO2 17.6 L ABG O2 Saturation 95 ABG Base Excess -10.6 L Palliative Quality Palliative Quality: Screen for Code Status: Yes, Screen for Goals of Care: Yes, Screen for Pain: Yes, If Pain Regimen Started, Initiate Bowel Regimen: Yes, Screen for Nausea/Vomitting: Yes Code Status: 01/07/17 23:12 Resuscitation Status: Active [RES] Routine Comment: Resuscitation Status: [id number]
--- NOTE | 2017-01-09 12:11 | Electrocardiograph Report ---
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
== END 2017-01-08 08:24 | disposition hospice, inpatient (51) | DRG 280 ==
LOC: EMEROO 14:07 → 2ANU 20:10
PROVIDERS: ADMIT Family Medicine; ATTEND Internal Medicine

== ENCOUNTER 2017-01-08 07:56 | Inpatient (IN) ==
[2017-01-08] MEDS ORDERED: Ondansetron 4 MG/2 ML VIAL IVP PRN (08:16)
[2017-01-08] MEDS ORDERED: *HR* LORazepam Oral Conc 2 MG/ML PO PRN (08:16)
[2017-01-08] MEDS ORDERED: *HR* LORazepam 2 MG/ML VIAL IVP PRN (08:16)
[2017-01-08] MEDS ORDERED: Sennosides/Docusate Sodium TABLET PO SCH (09:00)
--- NOTE | 2017-01-08 09:44 | Pallative History & Physical ---
Date of Encounter: 01/08/17 Time of Encounter: 09:43 Internal Medicine - H&P: HPI History of present illness: Ms. 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 The patient is opted for comfort care only and there was no intervention all other interventions have stopped. U comfort meds. (2) Atrial fibrillation Current visit: Yes Status: Acute Under good control at this time continue observation. Patient is for care only at this time. Qualifiers: Qualified Code(s): I48.91 - Unspecified atrial fibrillation (3) Elevated troponin Current visit: Yes Status: Acute Acute event, non-ST elevation MN. The patient has opted for comfort measures only and general inpatient hospice care will not investigate this further, however this does to do basis for real re-defecation for hospice. (4) Goals of care, counseling/discussion Current visit: No Status: Acute Patient is DO NOT RESUSCITATE Comfort Care only. She has opted for general inpatient hospice care continue to watch for pain issues. The patient will not be rather evaluated with regards to rhabdomyolysis and complete renal failure is anticipated. (5) Hyperkalemia Current visit: Yes Status: Acute This is probably a result of the rhabdomyolysis and acute renal failure, not be treated any furthers the patient is opted for comfort care measures only. (6) Ischemic cardiomyopathy Current visit: No Status: Chronic History of the same, and now with a non-ST elevation MN. He is the basis for hospice admission. Internal Medicine - H&P: HPI Admitted From: Hospital to Hospital Transfer Plans for Post Hospital Care: Hospice - Home History of present illness: Ms. Saenz is a 86 year old female Patient is admitted to general inpatient hospice service after a fall last night probably resulted from a non-ST elevation MN. The patient does have a history of heart disease for which she had been hospice in the past. Her heart disease did not Progress and she ended up revoking hospice, has however had 2 other hospitalizations since evoking. Appears the patient fell last night possibly as a consequence of non-ST elevation MN. Although there is a great deal of facial trauma there is no fractures, off tissue damage only. However the patient did have a rhabdomyolysis with acute renal failure as well as what appears to be an acute thrombotic event in her aorta or iliacs resulting in livedo reticularis to both legs with poor pulses cool extremities. Patient's family stated that he did not wish to consider dialysis, they did not wish to consider surgery they wanted comfort measures only. As the patient does have a history of heart disease and was hospice eligible in the past and now has had another probable MN as well as an acute thrombotic event including renal failure the patient is deemed appropriate for hospice on the general inpatient service and will be treated as such. He is comfortable at this time with medications, however she is relatively unresponsive patient's history is coming from the medical record. Past Med Surg Social Fam HX - Past Medical History Medical history: aortic aneurysm, atrial fibrillation, cancer, CHF, COPD, coronary artery disease, CVA, hyperlipidemia, hypertension, myocardial infarction, TIA Psychiatric history: anxiety, depression - Past Surgical History Surgical History: appendectomy, coronary bypass (CABG) - Social History Smoking Status: Former smoker Smokeless Tobacco Status: No Alcohol use: none Drug use: none - Family History Brother Family Member Ethnicity: Non- Living Status: Hx Family Cancer: Yes (Throat) Father Adopted: No Family Member Ethnicity: Non- Living Status: Hx Family Cardiac Disorders: Yes (HD) Hx Family Respiratory Disorders: Yes (Emphysema) Hx Family Cancer: Yes (MOTHER COLON CA) Mother Family Member Ethnicity: Non- Living Status: Internal Medicine - H&P: Meds HYDROmorphone [Dilaudid] 1 mg IVP Q1H PRN #0 syringe 01/08/17 [Rx] Heparin 2,000 unit IVP Q6H PRN #0 vial 01/08/17 [Rx] Heparin 4,000 unit IVP Q6HR PRN #0 vial 01/08/17 [Rx] Naloxone [Narcan] 0.4 mg IVP Q2MIN PRN #0 inj 01/08/17 [Rx] Ondansetron ODT [Zofran ODT] 4 mg SL Q8HR PRN #0 tab.rapdis 01/08/17 [Rx] Allergies morphine Adverse Reaction (Severe, Verified 12/28/16 04:27) severe headache/questionable seizure nitroglycerin Adverse Reaction (Verified 12/28/16 04:27) Headache ROS unobtainable: due to mental status Palliative Care-Exam - Constitutional Vitals: Temp Pulse Resp BP Pulse Ox 98.3 F 120 22 157/78 96 01/08/17 07:30 01/08/17 07:30 01/08/17 07:30 01/08/17 07:30 07:30 General appearance: Present: no acute distress - Head Head Exam: Absent: atraumatic, normal inspection (Large amounts ecchymoses on on the face secondary to fall) - Eye Eye exam: Absent: normal appearance (Secondary to fall) - ENT ENT exam: Present: mucous membranes moist - Respiratory Respiratory exam: Present: decreased breath sounds (But equal) - Cardiovascular Cardiovascular exam: Present: irregular rhythm - GI/Abdominal Exam GI/Abdominal exam: Present: normal bowel sounds, soft. Absent: tenderness - Catheter Type: Urethral (Avendano) - Extremities Exam Extremities exam: Absent: normal capillary refill, normal inspection, pedal edema, tenderness (She has bilateral livedo reticularis limbs are cool to the touch and pulses are not palpable) - Neurological Exam Neurological exam: Present: altered - Psychiatric Psychiatric exam: Absent: agitated, anxious - Skin Skin exam: Present: dry, mottled (Moose reticularis is noted on both legs the legs are cool to the touch as are not palpable). Absent: warm Internal Medicine - H&P: Reslt - Labs CBC & Chem 7: 01/08/17 03:37 [Image 1] 01/08/17 03:37 [Image 1] Labs: Short CBC 01/07/17 01/07/17 01/08/17 Range/Units 22:18 23:10 03:37 WBC 7.5 9.3 8.9 (4.3-11.1) K/mcL Hgb 9.8 L 9.8 L 9.6 L (11.5-15.4) g/dL Hct 33.1 L 32.9 L 32.2 L (35.3-44.9) % Plt Count 82 L 83 L 90 L (140-400) K/mcL Neutrophils # 7.6 (1.6-8.9) K/mcL BMP 01/07/17 01/08/17 23:10 03:37 Sodium 141 141 Potassium 6.9 H* D 7.4 H* Chloride 112 H 113 H Carbon Dioxide 15 L 14 L BUN 37 H 39 H Creatinine 1.92 H 2.05 H Glucose 149 H 138 H Calcium 8.1 L 8.0 L Cardiac Enzymes 01/07/17 01/08/17 Range/Units 22:18 03:37 Troponin I 11.78 H* 16.27 H* (0-0.03) ng/mL Liver Function 01/08/17 Range/Units 03:37 Total Bilirubin 1.3 H (0.2-1.2) mg/dL AST 391 H (5-34) Units/L ALT 164 H (0-55) Units/L Alkaline Phosphatase 98 (38-126) Units/L Albumin 3.0 L (3.5-5.0) g/dL - ABG Interpretation ABG results: 01/07/17 23:01 ABG pH 7.22 L ABG pCO2 40 ABG pO2 92 ABG HCO3 16.4 L ABG Total CO2 17.6 L ABG O2 Saturation 95 ABG Base Excess -10.6 L Palliative Quality Palliative Quality: Screen for Code Status: Yes, Screen for Goals of Care: Yes, Screen for Pain: Yes, If Pain Regimen Started, Initiate Bowel Regimen: Yes, Screen for Nausea/Vomitting: Yes Code Status: 01/07/17 23:12 Resuscitation Status: Active [RES] Routine Comment: Resuscitation Status: [id number] Past Med Surg Social Fam HX - Past Medical History Medical history: aortic aneurysm, atrial fibrillation, cancer, CHF, COPD, coronary artery disease, CVA, hyperlipidemia, hypertension, myocardial infarction, TIA Psychiatric history: anxiety, depression - Past Surgical History Surgical History: appendectomy, coronary bypass (CABG) - Social History Smoking Status: Former smoker Smokeless Tobacco Status: No Alcohol use: none Drug use: none - Family History Brother Family Member Ethnicity: Non- Living Status: Hx Family Cancer: Yes (Throat) Father Adopted: No Family Member Ethnicity: Non- Living Status: Hx Family Cardiac Disorders: Yes (HD) Hx Family Respiratory Disorders: Yes (Emphysema) Hx Family Cancer: Yes (MOTHER COLON CA) Mother Family Member Ethnicity: Non- Living Status: Internal Medicine - H&P: Meds HYDROmorphone [Dilaudid] 1 mg IVP Q1H PRN #0 syringe 01/08/17 [Rx] Heparin 2,000 unit IVP Q6H PRN #0 vial 01/08/17 [Rx] Heparin 4,000 unit IVP Q6HR PRN #0 vial 01/08/17 [Rx] Naloxone [Narcan] 0.4 mg IVP Q2MIN PRN #0 inj 01/08/17 [Rx] Ondansetron ODT [Zofran ODT] 4 mg SL Q8HR PRN #0 tab.rapdis 01/08/17 [Rx] Allergies morphine Adverse Reaction (Severe, Verified 12/28/16 04:27) severe headache/questionable seizure nitroglycerin Adverse Reaction (Verified 12/28/16 04:27) Headache Palliative Quality Palliative Quality: Screen for Code Status: Yes, Screen for Goals of Care: Yes, Screen for Pain: Yes, If Pain Regimen Started, Initiate Bowel Regimen: Yes, Screen for Nausea/Vomitting: Yes Code Status: 01/08/17 08:16 Resuscitation Status: Active [RES] Stat Comment: Resuscitation Status: DNR-Comfort Care
--- NOTE | 2017-01-08 09:46 | Event Note ---
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 Start: 01/08/2017 Hospice benefit. In: +90 days Palliative performance scale: 20% History: History of hemic cardiomyopathy, now with a non-ST elevation SC, this is complicated by a fall which resulted in rhabdomyolysis, hyperkalemia, also has severe peripheral vascular disease resulting in poor circulation to both lower extremities. He has opted for no further aggressive therapy. And therefore, I believe that These findings support a life expectancy of 6 months or less. I attest that I have compose the above narrative based on my review of the patient's medical records, and or on my examination of the patient. She was seen personally by myself, this is a [id number] evaluation as the patient has been previously in hospice will service the [id number] evaluation plan. Howie Swan M.D. Associate medical videographer. [facility]
[2017-01-08] MEDS: *HR* HYDROmorphone (PF) 1 MG/ML SYRINGE IVP PRN ×4 (09:57→17:40)
[2017-01-08 11:57] VITALS: BP 157/78
[2017-01-08] MEDS ORDERED: Atropine Sulfate 1% 40 DROP/2 ML BOTTLE SL PRN (17:56)
[2017-01-08] MEDS ORDERED: Aminoglycoside Consult 1 EACH MC ONE (19:59)
[2017-01-08] MEDS ORDERED: Bisacodyl 10 MG RECTAL SUPPOSITORY RC SCH (21:00)
--- NOTE | 2017-01-09 07:02 | Death Note ---
Discharge Sum: Summary - Date and Time Date of admission: 01/08/17 08:28 Date of : 01/08/17 Time of : 20:00 - Summary Details: The patient was transitioned to general inpatient the morning of her . Had a ST AL, as well as what appeared to be a thrombotic event in either her iliacs or her aorta leaving her with libido reticularis of both legs. She passed quietly and comfortably with family at bedside. She was a former smoker and this probably did contribute to her demise Morbidities, atrial fibrillation, I and the left breast, COPD,, hypertension. Cause of coronary artery disease which she had for years - Additional Data Confirmation of as documented by pronouncing clinician: no pulse, no respirations, no heart sounds Family: at bedside Attending/PCP notified?: Yes Attending physician: Howie Swan MD Was code activated?: No Autopsy requested?: No computer forensics examiner notified?: No Organ bank notified?: Yes Advance directives: Yes Hospice patient?: Yes Discharge Sum: Diag - PCOD Probable Cause of : Respiratory arrest Discharge Sum: Prov - Provider Consults: 01/08/17 08:17 Consult to Palliative Care [CONS] Routine Comment: Consulting Provider: Palliative Care Vera Reason for Consult: carina del rosario too lazy to do his own consult Call Completed: Yes
--- NOTE | 2017-01-09 15:59 | Electrocardiograph Report ---
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
== END 2017-01-08 20:00 | disposition home or self-care (01) | DRG 280 ==
LOC: 2ANU 08:28
PROVIDERS: ADMIT Family Medicine Hospice and Palliative Medicine; ATTEND Family Medicine Hospice and Palliative Medicine